=== PATIENT | female | born 1935 | race African-American/Black ===

== ENCOUNTER 2017-02-11 16:55 | Emergency (ER) | payer OTHER ==
[~2017-02-11] VITALS: Ht 162.6 cm; Wt 92.5 kg
[~2017-02-11 16:55] MED LIST: ACET650S19 PO; ASPI-630 PO; ASPI325T11 PO; ATOR40TA59 PO; BISA10SU55 RC; BUDE0.253 NEB; BUDE0.5A NEB; CARV6.252 PO; CEPH-264 PO; CETI10CA PO; CLOP75TA PO; DIAZ5TAB4 PO; DICL100G18 TP; DICY10CA3 PO; FAMO20TA5 PO; FLUT9.9S NS; FURO40TA4 PO; GABA-586 PO; GLIP5TAB10 PO; INSU100I17 SQ; INSU100I27 SQ; INSU100V8 SQ; IPRA3AMP NEB; LIDO700A4 TP; LISI2.5T PO; LOSA25TA4 PO; LOSA50TA2 PO; MAGN400O7 PO; METO25TA4 PO; MONT10TA9 PO; MUPI22OI2 TP; NITR0.4T22 SL; OMEP20CA9 PO; ONETOUCH; PANT40TA5 PO; POLY17PO29 PO; POTA10TA12 PO; PRED-220 PO; TICA90TA PO; TIZA2CAP PO
[2017-02-11 17:38] LABS: BASO % 1 % (0-3); EOS % 6 % (0-3); HEMATOCRIT 33.3 % (36.0-47.0); HEMOGLOBIN 11.1 g/dL (12.0-15.5); LYMPH % 13 % (24-48); MEAN CORPUSCULAR HEMOGLOBIN 31 pg (25-35); MEAN CORPUSCULAR HGB CONC 33 g/dL (31-37); MEAN CORPUSCULAR VOLUME 92 fL (79-100); MONO % 12 % (0-9); NEUT % 69 % (31-73); PLATELET COUNT 215 x10^3/uL (140-400); RED BLOOD COUNT 3.61 x10^6/uL (3.50-5.40); RED CELL DISTRIBUTION WIDTH 13.6 % (11.5-14.5); WHITE BLOOD COUNT 7.7 x10^3/uL (4.0-11.0)
[2017-02-11] MEDS ORDERED: KETOROLAC TROMETHAMINE 30 MG/ML INJ. IV ONE (17:45)
[2017-02-11 17:59] LABS: CALCIUM 9.4 mg/dL (8.5-10.1); CREATININE 1.5 mg/dL (0.6-1.0); GFR 40.2; POTASSIUM 4.2 mmol/L (3.5-5.1)
[2017-02-11 18:26] LABS: C-REACTIVE PROTEIN 10.2 mg/L (0-3.3); URIC ACID 11.5 mg/dL (2.6-6.0)
[2017-02-11] MEDS ORDERED: IV NORMAL SALINE 1000ML BAG 1,000 ML IV ONE (18:30)
[2017-02-11 21:14] VITALS: BP 154/56
[2017-02-11] MEDS ORDERED: COLCHICINE 0.6 MG TABLET PO ONE (22:00)
[2017-02-11] MEDS ORDERED: HYDR-971 PO (22:11)
[2017-02-11] MEDS ORDERED: PRED50TA PO (22:11)
[2017-02-11] MEDS ORDERED: COLC0.6T34 PO (22:11)
--- NOTE | 2017-02-11 22:12 | PHYS DOC ---
Past Medical History Past Medical History: Diabetes-Type II, Hypertension, [place] Past Surgical History: Appendectomy, Cholecystectomy, Hysterectomy, Other Additional Past Surgical Histo: cardiac stents Alcohol Use: None Drug Use: None Adult General Chief Complaint Chief Complaint: HAND PROBLEM HPI HPI 82-year-old female with no prior history of hand pain now complaining of severe pain redness and swelling at the joint proximal to her left thumb. Patient states this was onset over the last day. Extremely painful to light touch. Area of her first metacarpal joint is red and warm. Patient suffered no trauma and had no wound. No Prior history of gout. Review of Systems Review of Systems Constitutional: Denies fever or chills [] Eyes: Denies change in visual acuity, redness, or eye pain [] HENT: Denies nasal congestion or sore throat [] Respiratory: Denies cough or shortness of breath [] Cardiovascular: No additional information not addressed in HPI [] GI: Denies abdominal pain, nausea, vomiting, bloody stools or diarrhea [] : Denies dysuria or hematuria [] Musculoskeletal: Denies back pain or joint pain [] Integument: Denies rash or skin lesions [] Neurologic: Denies headache, focal weakness or sensory changes [] Endocrine: Denies polyuria or polydipsia [] Current Medications Current Medications Current Medications Medications (Trade) Dose Ordered Sig/Leena Start Time Stop Time Status Last Admin Dose Admin Colchicine (Colcrys) 0.6 mg 1X ONCE 02/11/17 22:00 02/11/17 22:01 DC 02/11/17 21:45 0.6 MG Ketorolac Tromethamine (Toradol) 30 mg 1X ONCE 02/11/17 17:45 02/11/17 17:46 DC 02/11/17 17:35 30 MG Prednisone (Prednisone) 10 mg STK-MED ONCE 02/11/17 22:22 02/11/17 22:23 DC Sodium Chloride 1,000 ml @ 1,000 mls/hr 1X ONCE 02/11/17 18:30 02/11/17 19:29 DC Allergies Allergies Allergies Coded Allergies Type Severity Reaction Last Updated Verified metformin Allergy Intermediate 02/11/17 Yes tramadol Allergy Intermediate 06/26/16 Yes Physical Exam Physical Exam Well appearing female no acute distress perfectly dressed and groomed, alert and communicative and appropriate in no acute distress until her first metacarpal joint on left hand is palpated. First metacarpal joint is mildly swollen very tender to light touch and erythematous and warm. No crepitus or fluctuance. No bony tenderness Constitutional: Well developed, well nourished, no acute distress, non-toxic appearance. [] HENT: Normocephalic, atraumatic, bilateral external ears normal, oropharynx moist, no oral exudates, nose normal. [] Eyes: PERRLA, EOMI, conjunctiva normal, no discharge. [] Neck: Normal range of motion, no tenderness, supple, no stridor. [] Cardiovascular:Heart rate regular rhythm, no murmur [] Lungs & Thorax: Bilateral breath sounds clear to auscultation [] Abdomen: Bowel sounds normal, soft, no tenderness, no masses, no pulsatile masses. [] Skin: As above otherwise Warm, dry, no erythema, no rash. [] Back: No tenderness, no CVA tenderness. [] Extremities: No tenderness, no cyanosis, no clubbing, ROM intact, no edema. [] Neurologic: Alert and oriented X 3, normal motor function, normal sensory function, no focal deficits noted. [] Psychologic: Affect normal, judgement normal, mood normal. [] Current Patient Data Vital Signs Vital Signs Date Time Temp Pulse Resp B/P (MAP) Pulse Ox O2 Delivery O2 Flow Rate FiO2 02/11/17 21:14 80 22 154/56 (88) 98 02/11/17 17:00 97.5 Room Air 97.5 Lab Values Laboratory Tests Test 02/11/17 17:30 02/11/17 21:13 White Blood Count 7.7 x10^3/uL (4.0-11.0) Red Blood Count 3.61 x10^6/uL (3.50-5.40) Hemoglobin 11.1 g/dL (12.0-15.5) L Hematocrit 33.3 % (36.0-47.0) L Mean Corpuscular Volume 92 fL (79-100) Mean Corpuscular Hemoglobin 31 pg (25-35) Mean Corpuscular Hemoglobin Concent 33 g/dL (31-37) Red Cell Distribution Width 13.6 % (11.5-14.5) Platelet Count 215 x10^3/uL (140-400) Neutrophils (%) (Auto) 69 % (31-73) Lymphocytes (%) (Auto) 13 % (24-48) L Monocytes (%) (Auto) 12 % (0-9) H Eosinophils (%) (Auto) 6 % (0-3) H Basophils (%) (Auto) 1 % (0-3) Neutrophils # (Auto) 5.3 x10^3uL (1.8-7.7) Lymphocytes # (Auto) 1.0 x10^3/uL (1.0-4.8) Monocytes # (Auto) 0.9 x10^3/uL (0.0-1.1) Eosinophils # (Auto) 0.5 x10^3/uL (0.0-0.7) Basophils # (Auto) 0.0 x10^3/uL (0.0-0.2) Erythrocyte Sedimentation Rate 110 (0-25) H Sodium Level 139 mmol/L (136-145) Potassium Level 4.2 mmol/L (3.5-5.1) Chloride Level 101 mmol/L (98-107) Carbon Dioxide Level 31 mmol/L (21-32) Anion Gap 7 (6-14) Blood Urea Nitrogen 32 mg/dL (7-20) H Creatinine 1.5 mg/dL (0.6-1.0) H Estimated GFR (Cockcroft-Gault) 40.2 Glucose Level 235 mg/dL (70-99) H Uric Acid 11.5 mg/dL (2.6-6.0) H Calcium Level 9.4 mg/dL (8.5-10.1) C-Reactive Protein, Quantitative 10.2 mg/L (0-3.3) H Procalcitonin 0.05 ng/mL (0.00-0.10) Glucose (Fingerstick) 139 mg/dL (70-99) H Laboratory Tests 02/11/17 17:30 Laboratory Tests 02/11/17 17:30 EKG EKG [] Radiology/Procedures Radiology/Procedures X-ray of the left hand with chronic bony deformity at the first MCP joint on the left hand. No fracture. [] Course & Med Decision Making Course & Med Decision Making Pertinent Labs and Imaging studies reviewed. (See chart for details Signs and symptoms consistent with suspected gout and a well-appearing patient with no infectious prodrome is afebrile and feels well other than local pain at the first MCP with exquisite tenderness to light touch. Uric acid elevated. Pro- calcitonin negative. Labs unremarkable otherwise. Patient treated for gout with significant relief comfortable on reevaluation prior to discharge. She is worried follow up with PCP. Prescription for colchicine and prednisone dispensed. Patient will use [facility] as needed and follow up with PCP. She agrees with outpatient follow-up and strict return precautions given [] Baldemar Disclaimer Baldemar Disclaimer This electronic medical record was generated, in whole or in part, using a voice recognition dictation system. Departure Departure Impression: Primary Impression: Gout Additional Impression: Pain of left thumb Disposition: HOME, SELF-CARE Condition: IMPROVED Referrals: UNKNOWN PCP NAME (PCP) Patient Instructions: Gout Additional Instructions: It appears that your left thumb pain as a result of gout today. Take anti- inflammatory medicine as directed, and use [facility] as needed for breakthrough pain as prescribed. Use colchicine as directed for an acute gout attack. One pill every hour until you get relief or limited by irritation of her stomach, or nausea. Follow-up with your doctor tomorrow for reevaluation and to discuss continued management of your condition. Your x-ray shows chronic bony changes in the area of your pain and it is appropriate to discuss this with your doctor as well. Scripts Hydrocodone/Apap 5-325 (NORCO 5-325 TABLET) 1 Each Tablet 1 TAB PO PRN Q6HRS Y for PAIN, #14 TAB 0 Refills Prov: IMAN MARTIN MD 02/11/17 Colchicine (COLCRYS) 0.6 Mg Tablet 0.6 MG PO every hour Y for gout, #20 TAB Take 1 pill every hour by mouth as needed for an acute gout attack up to 5 doses. Stop if you have nausea or stomach irritation. Prov: IMAN MARTIN MD 02/11/17 Prednisone (PREDNISONE) 50 Mg Tablet 1 TAB PO DAILY, #5 TAB Prov: IMAN MARTIN MD 02/11/17 Problem Qualifiers IMAN MARTIN MD Feb 11, 2017 22:12
[2017-02-11] MEDS ORDERED: predniSONE 20 MG TABLET ONE (22:21)
[2017-02-11] MEDS ORDERED: predniSONE 10 MG TABLET ONE (22:22)
[2017-02-11] MEDS ORDERED: predniSONE 20 MG TABLET PO ONE (23:00)
--- NOTE | 2017-02-12 08:58 | RAD ---
Examination: 3 views of the left hand History: History of pain in the left first and metacarpophalangeal joint. Comparison: None available Findings: There is moderate degenerative changes identified in the metacarpophalangeal joints with mildly degenerative changes identified in the interphalangeal joints. There is no acute fracture identified. Impression 1. No acute osseous findings. 2. Degenerative changes metacarpophalangeal joints and interphalangeal joints.
== END 2017-02-11 22:36 | disposition home or self-care (01) ==
LOC: ER 16:55
DX: M10.9 Gout, unspecified (principal); E11.9 Type 2 diabetes mellitus without complications; I10 Essential (primary) hypertension; I25.2 Old myocardial infarction; Z95.5 Presence of coronary angioplasty implant and graft; Z90.49 Acquired absence of other specified parts of digestive tract; Z90.710 Acquired absence of both cervix and uterus; Z88.5 Allergy status to narcotic agent; Z88.8 Allergy status to other drugs, medicaments and biological substances
CPT/HCPCS: 36415; 73130; 80048; 82962; 84145; 84550; 85027; 85651; 86140; 87040; 96374; 99285; J1885; J7512

== ENCOUNTER 2017-05-10 16:46 | Inpatient (IN) | payer OTHER ==
[~2017-05-10] VITALS: Ht 162.6 cm; Wt 96.6 kg
[~2017-05-10 16:46] MED LIST changes: +COLC0.6T34 PO; +HYDR-971 PO; +PRED50TA PO
[2017-05-10] MEDS: NITROGLYCERIN SUBLINGUAL 0.4 MG BOTTLE OF 25. SL PRN ×2 (17:21→22:39)
[2017-05-10] MEDS ORDERED: LIDO:MAALOX:DONNATAL 1:1:1 15 ML SINGLE DOSE SWSW ONE (17:30)
[2017-05-10 17:33] LABS: BASO % 0 % (0-3); EOS % 6 % (0-3); HEMATOCRIT 33.4 % (36.0-47.0); HEMOGLOBIN 11.1 g/dL (12.0-15.5); LYMPH # 1.5 x10^3/uL (1.0-4.8); LYMPH % 25 % (24-48); MEAN CORPUSCULAR HEMOGLOBIN 31 pg (25-35); MEAN CORPUSCULAR HGB CONC 33 g/dL (31-37); MEAN CORPUSCULAR VOLUME 93 fL (79-100); MONO % 13 % (0-9); NEUT % 56 % (31-73); PLATELET COUNT 173 x10^3/uL (140-400); RED CELL DISTRIBUTION WIDTH 13.4 % (11.5-14.5); WHITE BLOOD COUNT 6.1 x10^3/uL (4.0-11.0)
--- NOTE | 2017-05-10 17:36 | PHYS DOC ---
Past Medical History Past Medical History: Diabetes-Type II, Heart Disease, Hypertension, [place] Past Surgical History: Appendectomy, Cholecystectomy, Hysterectomy, Other Additional Past Surgical Histo: cardiac stents, cardiac catheterization x4 Alcohol Use: None Drug Use: None Adult General Chief Complaint Chief Complaint: CHEST PAIN [facility] HPI Patient is a 82 year old female who presents with 2 days of intermittent R side pressure-like chest pain that radiates to her shoulder. It became more constant today, she didn't have any nitro left so she didn't take anything for the pain. Pt states this feels similar to when she had her last MO. She already took a full-dose aspirin today. Reports associated SOB with mild cough , denies fevers. No diaphoresis reported. Denies h/o PE or DVT. civil attorney: Dr. Boyd, PCP at . Review of Systems Review of Systems Constitutional: Denies fever or chills [] Eyes: Denies change in visual acuity, redness, or eye pain [] HENT: Denies nasal congestion or sore throat [] Respiratory: per hpi Cardiovascular: No additional information not addressed in HPI [] GI: Denies abdominal pain, nausea, vomiting, bloody stools or diarrhea [] : Denies dysuria or hematuria [] Musculoskeletal: Denies back pain or joint pain [] Integument: Denies rash or skin lesions [] Neurologic: Denies headache, focal weakness or sensory changes [] Current Medications Current Medications Current Medications Medications (Trade) Dose Ordered Sig/Leena Start Time Stop Time Status Last Admin Dose Admin Multi-Ingredient Mouthwash/Gargle (Gi Cocktail Single Dose) 15 ml 1X ONCE 05/10/17 17:30 05/10/17 17:31 DC 05/10/17 17:20 15 ML Nitroglycerin (Nitrostat) 0.4 mg PRN Q5MIN PRN 05/10/17 17:15 05/10/17 22:39 0.4 MG Allergies Allergies Allergies Coded Allergies Type Severity Reaction Last Updated Verified metformin Allergy Intermediate 02/11/17 Yes tramadol Allergy Intermediate 06/26/16 Yes Physical Exam Physical Exam Constitutional: Well developed, well nourished, no acute distress, non-toxic appearance. [] HENT: Normocephalic, atraumatic, bilateral external ears normal, oropharynx moist, no oral exudates, nose normal. [] Eyes: PERRLA, EOMI, conjunctiva normal, no discharge. [] Neck: Normal range of motion, no tenderness, supple, no stridor. [] Cardiovascular:Heart rate regular with regular rhythm Lungs & Thorax: Bilateral breath sounds , bibasilar crackles Abdomen: Bowel sounds normal, soft, no tenderness, no masses, no pulsatile masses. [] Skin: Warm, dry, no erythema, no rash. [] Back: No tenderness, no CVA tenderness. [] Extremities: No tenderness, no cyanosis, no clubbing, ROM intact, no edema.neg homen's bilaterally Neurologic: Alert and oriented X 3, normal motor function, normal sensory function, no focal deficits noted. [] Psychologic: Affect normal, judgement normal, mood normal. [] Current Patient Data Vital Signs Vital Signs Date Time Temp Pulse Resp B/P (MAP) Pulse Ox O2 Delivery O2 Flow Rate FiO2 05/10/17 17:52 68 18 125/58 (80) 98 Room Air 05/10/17 16:57 98.1 98.1 Lab Values Laboratory Tests Test 05/10/17 17:00 05/10/17 17:17 Urine Collection Type Unknown Urine Color Yellow Urine Clarity Clear Urine pH 5.5 Urine Specific [place] >=1.030 Urine Protein Negative mg/dL (NEG-TRACE) Urine Glucose (UA) Negative mg/dL (NEG) Urine Ketones (Stick) Negative mg/dL (NEG) Urine Blood Negative (NEG) Urine Nitrite Negative (NEG) Urine Bilirubin Negative (NEG) Urine Urobilinogen Dipstick 0.2 mg/dL (0.2 mg/dL) Urine Leukocyte Esterase Negative (NEG) Urine RBC Occ /HPF (0-2) Urine WBC Occ /HPF (0-4) Urine Squamous Epithelial Cells Mod /LPF Urine Bacteria Few /HPF (0-FEW) Urine Hyaline Casts Many /HPF Urine Mucus Slight /LPF White Blood Count 6.1 x10^3/uL (4.0-11.0) Red Blood Count 3.60 x10^6/uL (3.50-5.40) Hemoglobin 11.1 g/dL (12.0-15.5) L Hematocrit 33.4 % (36.0-47.0) L Mean Corpuscular Volume 93 fL (79-100) Mean Corpuscular Hemoglobin 31 pg (25-35) Mean Corpuscular Hemoglobin Concent 33 g/dL (31-37) Red Cell Distribution Width 13.4 % (11.5-14.5) Platelet Count 173 x10^3/uL (140-400) Neutrophils (%) (Auto) 56 % (31-73) Lymphocytes (%) (Auto) 25 % (24-48) Monocytes (%) (Auto) 13 % (0-9) H Eosinophils (%) (Auto) 6 % (0-3) H Basophils (%) (Auto) 0 % (0-3) Neutrophils # (Auto) 3.4 x10^3uL (1.8-7.7) Lymphocytes # (Auto) 1.5 x10^3/uL (1.0-4.8) Monocytes # (Auto) 0.8 x10^3/uL (0.0-1.1) Eosinophils # (Auto) 0.3 x10^3/uL (0.0-0.7) Basophils # (Auto) 0.0 x10^3/uL (0.0-0.2) Prothrombin Time 13.0 SEC (11.7-14.0) Prothrombin Time INR 1.0 (0.8-1.1) Sodium Level 141 mmol/L (136-145) Potassium Level 4.0 mmol/L (3.5-5.1) Chloride Level 106 mmol/L (98-107) Carbon Dioxide Level 28 mmol/L (21-32) Anion Gap 7 (6-14) Blood Urea Nitrogen 23 mg/dL (7-20) H Creatinine 1.4 mg/dL (0.6-1.0) H Estimated GFR (Cockcroft-Gault) 43.6 BUN/Creatinine Ratio 16 (6-20) Glucose Level 171 mg/dL (70-99) H Calcium Level 8.8 mg/dL (8.5-10.1) Magnesium Level 2.1 mg/dL (1.8-2.4) Total Bilirubin 0.3 mg/dL (0.2-1.0) Aspartate Amino Transferase (AST) 25 U/L (15-37) Alanine Aminotransferase (ALT) 25 U/L (14-59) Alkaline Phosphatase 125 U/L (46-116) H Troponin I Quantitative < 0.017 ng/mL (0.000-0.055) UY-Gqm-A-Type Natriuretic Peptide 2033 pg/mL (0-449) H Total Protein 7.6 g/dL (6.4-8.2) Albumin 3.3 g/dL (3.4-5.0) L Albumin/Globulin Ratio 0.8 (1.0-1.7) L Laboratory Tests 05/10/17 17:17 Laboratory Tests 05/10/17 17:17 EKG EKG 75 bpm, sinus, normal axis, normal intervals, T-wave biphasic in aVL, V6, no ST elevation or depression, compared with previous EKGs and no acute change appreciated, interpreted by me[] Radiology/Procedures Radiology/Procedures CXR: 1 view, interpreted by me, ongoing cardiomegaly with mild bilateral lower lobe pulm edema, ICD noted.[] Course & Med Decision Making Course & Med Decision Making Pertinent Labs and Imaging studies reviewed. (See chart for details) Pt given SL nitro and gi cocktail Symptoms improved, no acute findings on ED other than mild pulm edema. 20 mg IV lasix IV given, pt admitted to tele under Dr. Pineda. Kleberon Disclaimer Baldemar Disclaimer This electronic medical record was generated, in whole or in part, using a voice recognition dictation system. Departure Departure Impression: Primary Impression: Unstable angina Disposition: 09 ADMITTED INPATIENT Admitting Physician: Jenni Cha Condition: IMPROVED Referrals: UNKNOWN PCP NAME (PCP) BARTOLO MONTERROSO MD May 10, 2017 17:36
[2017-05-10 17:44] LABS: CALCIUM 8.8 mg/dL (8.5-10.1); CREATININE 1.4 mg/dL (0.6-1.0); GFR 43.6
[2017-05-10 17:50] LABS: ALBUMIN 3.3 g/dL (3.4-5.0); ALBUMIN/GLOBULIN RATIO 0.8 (1.0-1.7); MAGNESIUM 2.1 mg/dL (1.8-2.4); TOTAL BILIRUBIN 0.3 mg/dL (0.2-1.0); TOTAL PROTEIN 7.6 g/dL (6.4-8.2)
[2017-05-10] MEDS ORDERED: ACETAMINOPHEN 325 MG TABLET. PO PRN (18:15)
[2017-05-10] MEDS ORDERED: MORPHINE SULFATE 4 MG/ML DISP.SYRIN. IV PRN (18:15)
[2017-05-10] MEDS ORDERED: NITROGLYCERIN SUBLINGUAL 0.4 MG BOTTLE OF 25. SL PRN ×2 (18:15→19:00)
[2017-05-10] MEDS ORDERED: FUROSEMIDE 20 MG/2 ML VIAL. IVP ONE (18:30)
--- NOTE | 2017-05-10 18:57 | PDOC1 ---
History and Physical Date of Admission Date of Admission DATE: 05/10/17 TIME: 18:50 Identification/Chief Complaint Chief Complaint Right sided CP Problems: Source Source: Caregiver, Chart review, Patient History of Present Illness History of Present Illness 82 y.o obese AA fmealchelo who follows Mario Alberto Gupta and also mentions Dr Boyd, hx of 4 cardiac stents, last one placed Jun 2016 when she was admitted here, Claims compliance to meds including to Brilinta etc, comes in bec of CP Right sided associated with diaphoresis she claims and SOA, SHe does have hx CHF, on lasix at home, claims watches her salt intake CXR shows midl congestion, mild BNP 2K, will get lasix at ER, trops and ekg ok,admitted given cardiac hx to r.o ongoing ACS, SHe wants to go home soon,. DOes not see Dr. Azul Oliver or Dr. Teran anymore, She describes the CP as similar when she had her heart attach in Jun, 2016. CReat 1.9, she mentions a number 1.7 before, Was told to have some CKD, She was agreeable to see nephro while here for that CKD on lasix, . alb 3.3 NO JVD, no marked leg edema Past Medical History Cardiovascular: CAD, CHF, HTN, [place], Hyperlipidemia Pulmonary: Asthma, Other CENTRAL NERVOUS SYSTEM: Other GI: Constipation, GERD Heme/Onc: Anemia NOS Psych: Anxiety Musculoskeletal: Osteoarthritis, Other Renal/: Chronic renal insuff Endocrine: Diabetes Past Surgical History Past Surgical History: Appendectomy, Cholecystectomy, Cataract Removal, Other Family History Family History: No Significant Social History Smoke: No ALCOHOL: none Drugs: None Current Medications Current Medications Current Medications Nitroglycerin (Nitrostat) 0.4 mg PRN Q5MIN PRN SL CHEST PAIN Last administered on 05/10/17 17:21; Start 05/10/17 at 17:15 Multi-Ingredient Mouthwash/Gargle (Gi Cocktail Single Dose) 15 ml 1X ONCE SWSW Last administered on 05/10/17 17:20; Start 05/10/17 at 17:30; Stop 05/10/17 at 17:31; Status DC Furosemide (Lasix) 20 mg 1X ONCE IVP Last administered on 05/10/17 18:21; Start 05/10/17 at 18:30; Stop 05/10/17 at 18:31; Status DC Morphine Sulfate 2 mg PRN Q2HR PRN IV PAIN; Start 05/10/17 at 18:15; Stop 05/11 at 18:14 Acetaminophen (Tylenol) 650 mg PRN Q4HRS PRN PO FEVER; Start 05/10/17 at 18:15 ; Stop 05/11/17 at 18:14 Nitroglycerin (Nitrostat) 0.4 mg PRN Q5MIN PRN SL CHEST PAIN; Start 05/10/17 at 18:15; Stop 05/10/17 at 18:16; Status DC Active Scripts Active [place] 5-325 Tablet (Acetaminophen/Hydrocodone Bitart) 1 Each Tablet 1 Tab PO PRN Q6HRS PRN Colcrys (Colchicine) 0.6 Mg Tablet 0.6 Mg PO EVERY HOUR PRN Take 1 pill every hour by mouth as needed for an acute gout attack up to 5 doses. Stop if you have nausea or stomach irritation. Prednisone 50 Mg Tablet 1 Tab PO DAILY Novolog Flexpen (Insulin Aspart) 100 Unit/1 Ml Insuln.pen 1 Unit SQ DIRECTED Brilinta (Ticagrelor) 90 Mg Tablet 90 Mg PO BID Duoneb 0.5-3(2.5) Mg/3 Ml (Albuterol/Ipratropium) 3 Ml Ampul.neb 3 Ml NEB BID Famotidine 20 Mg Tablet 20 Mg PO DAILY Budesonide 0.5 Mg/2 Ml Ampul.neb 0.5 Mg NEB RTBID Furosemide 40 Mg Tablet 40 Mg PO DAILY Atorvastatin Calcium 40 Mg Tablet 40 Mg PO QHS Reported Dulcolax (Bisacodyl) 10 Mg Supp.rect 10 Mg RC PRN DAILY PRN Milk Of Magnesia (Magnesium Hydroxide) 400 Mg/5 Ml Oral.susp 400 Mg PO Tizanidine Hcl 2 Mg Capsule 2 Mg PO QID PRN NITROGLYCERIN SubLingual (Nitroglycerin) 0.4 Mg Tab.subl 0.4 Mg SL PRN Q5MIN PRN Carvedilol 6.25 Mg Tablet 1 Tab PO BID Voltaren (Diclofenac Sodium) 100 Gm Gel..gram. 2 Gm TP BID Keflex (Cephalexin) 500 Mg Capsule 500 Mg PO QID Lantus (Insulin Glargine,Hum.rec.anlog) 100 Unit/1 Ml Vial 30 Unit SQ Mupirocin Ointment (Mupirocin) 22 Gm Oint...g. 1 Amy TP TID Lidoderm (Lidocaine) 700 Mg Adh..patch 1 Patch TP DAILY Aspirin 81 Mg Tab.chew 1 Tab PO DAILY Dicyclomine Hcl 10 Mg Capsule 1 Cap PO TID Miralax (Polyethylene Glycol 3350) 17 Gm Powd.pack 1 Packet PO DAILY Allergies Allergies: Coded Allergies: metformin (Verified Allergy, Intermediate, 02/11/17) tramadol (Verified Allergy, Intermediate, 06/26/16) ROS Review of System per HPI, all else is neg Physical Exam General: Alert, Oriented X3, Cooperative, No acute distress HEENT: Atraumatic, PERRLA, EOMI Lungs: Clear to auscultation, Normal air movement Heart: S1S2, RRR, no thrills, no rubs, no gallops, no murmurs Cardiovascular: S1, S2 Breasts: Normal, Rt breast nml w/o mass, Lt breast nml w/o mass, Nipples normal Abdomen: Normal bowel sounds, Soft, No tenderness, No hepatosplenomegaly, No masses Rectal Exam: not examined PELVIC: Nml ext genitalia Extremities: No clubbing, No cyanosis, No edema, Normal pulses, No tenderness/ swelling Skin: No rashes, No breakdown, No significant lesion Neuro: Normal gait, Normal speech, Strength at 5/5 X4 ext, Normal tone, Sensation intact, Cranial nerves 3-12 NL, Reflexes 2+ Psych/Mental Status: Mental status NL, Mood NL Vitals Vitals Vital Signs Date Time Temp Pulse Resp B/P (MAP) Pulse Ox O2 Delivery O2 Flow Rate FiO2 05/10/17 18:24 68 16 137/81 (99) 98 Room Air 05/10/17 16:57 98.1 98.1 Labs Labs Laboratory Tests Test 05/10/17 17:17 White Blood Count 6.1 x10^3/uL (4.0-11.0) Red Blood Count 3.60 x10^6/uL (3.50-5.40) Hemoglobin 11.1 g/dL (12.0-15.5) Hematocrit 33.4 % (36.0-47.0) Mean Corpuscular Volume 93 fL (79-100) Mean Corpuscular Hemoglobin 31 pg (25-35) Mean Corpuscular Hemoglobin Concent 33 g/dL (31-37) Red Cell Distribution Width 13.4 % (11.5-14.5) Platelet Count 173 x10^3/uL (140-400) Neutrophils (%) (Auto) 56 % (31-73) Lymphocytes (%) (Auto) 25 % (24-48) Monocytes (%) (Auto) 13 % (0-9) Eosinophils (%) (Auto) 6 % (0-3) Basophils (%) (Auto) 0 % (0-3) Neutrophils # (Auto) 3.4 x10^3uL (1.8-7.7) Lymphocytes # (Auto) 1.5 x10^3/uL (1.0-4.8) Monocytes # (Auto) 0.8 x10^3/uL (0.0-1.1) Eosinophils # (Auto) 0.3 x10^3/uL (0.0-0.7) Basophils # (Auto) 0.0 x10^3/uL (0.0-0.2) Prothrombin Time 13.0 SEC (11.7-14.0) Prothromb Time International Ratio 1.0 (0.8-1.1) Sodium Level 141 mmol/L (136-145) Potassium Level 4.0 mmol/L (3.5-5.1) Chloride Level 106 mmol/L (98-107) Carbon Dioxide Level 28 mmol/L (21-32) Anion Gap 7 (6-14) Blood Urea Nitrogen 23 mg/dL (7-20) Creatinine 1.4 mg/dL (0.6-1.0) Estimated GFR (Cockcroft-Gault) 43.6 BUN/Creatinine Ratio 16 (6-20) Glucose Level 171 mg/dL (70-99) Calcium Level 8.8 mg/dL (8.5-10.1) Magnesium Level 2.1 mg/dL (1.8-2.4) Total Bilirubin 0.3 mg/dL (0.2-1.0) Aspartate Amino Transf (AST/SGOT) 25 U/L (15-37) Alanine Aminotransferase (ALT/SGPT) 25 U/L (14-59) Alkaline Phosphatase 125 U/L (46-116) Troponin I Quantitative < 0.017 ng/mL (0.000-0.055) SM-Xcy-C-Type Natriuretic Peptide 2033 pg/mL (0-449) Total Protein 7.6 g/dL (6.4-8.2) Albumin 3.3 g/dL (3.4-5.0) Albumin/Globulin Ratio 0.8 (1.0-1.7) Laboratory Tests Test 05/10/17 17:17 White Blood Count 6.1 x10^3/uL (4.0-11.0) Red Blood Count 3.60 x10^6/uL (3.50-5.40) Hemoglobin 11.1 g/dL (12.0-15.5) Hematocrit 33.4 % (36.0-47.0) Mean Corpuscular Volume 93 fL (79-100) Mean Corpuscular Hemoglobin 31 pg (25-35) Mean Corpuscular Hemoglobin Concent 33 g/dL (31-37) Red Cell Distribution Width 13.4 % (11.5-14.5) Platelet Count 173 x10^3/uL (140-400) Neutrophils (%) (Auto) 56 % (31-73) Lymphocytes (%) (Auto) 25 % (24-48) Monocytes (%) (Auto) 13 % (0-9) Eosinophils (%) (Auto) 6 % (0-3) Basophils (%) (Auto) 0 % (0-3) Neutrophils # (Auto) 3.4 x10^3uL (1.8-7.7) Lymphocytes # (Auto) 1.5 x10^3/uL (1.0-4.8) Monocytes # (Auto) 0.8 x10^3/uL (0.0-1.1) Eosinophils # (Auto) 0.3 x10^3/uL (0.0-0.7) Basophils # (Auto) 0.0 x10^3/uL (0.0-0.2) Prothrombin Time 13.0 SEC (11.7-14.0) Prothromb Time International Ratio 1.0 (0.8-1.1) Sodium Level 141 mmol/L (136-145) Potassium Level 4.0 mmol/L (3.5-5.1) Chloride Level 106 mmol/L (98-107) Carbon Dioxide Level 28 mmol/L (21-32) Anion Gap 7 (6-14) Blood Urea Nitrogen 23 mg/dL (7-20) Creatinine 1.4 mg/dL (0.6-1.0) Estimated GFR (Cockcroft-Gault) 43.6 BUN/Creatinine Ratio 16 (6-20) Glucose Level 171 mg/dL (70-99) Calcium Level 8.8 mg/dL (8.5-10.1) Magnesium Level 2.1 mg/dL (1.8-2.4) Total Bilirubin 0.3 mg/dL (0.2-1.0) Aspartate Amino Transf (AST/SGOT) 25 U/L (15-37) Alanine Aminotransferase (ALT/SGPT) 25 U/L (14-59) Alkaline Phosphatase 125 U/L (46-116) Troponin I Quantitative < 0.017 ng/mL (0.000-0.055) OD-Tjc-F-Type Natriuretic Peptide 2033 pg/mL (0-449) Total Protein 7.6 g/dL (6.4-8.2) Albumin 3.3 g/dL (3.4-5.0) Albumin/Globulin Ratio 0.8 (1.0-1.7) VTE Prophylaxis Ordered VTE Prophylaxis Devices: Yes VTE Pharmacological Prophylaxi: Yes Assessment/Plan Assessment/Plan 1. CP r.o ACS, atypical right sided 2. CHF hx, mild CHF leanna dmit, unknown type - get records from Dr Sloan's office 3. Obesity BMI 35.5 4. HTN, DM, dyslipidemia - chronci stable 5,. Hx CAD with 4 indwelling stents - resume home meds including Brilinta 6. CKD, creat 1.9 PLan: Admit Cycle CE Consult cards Get records from [facility] protocol Resume home meds SSi high dose achs BS 140s only - might need to dec 30 levemir dose if BS not too high s/p lasix at ER - see her UO and herlinda lisa Consult renal re the CKD 0- get UA - she is on lasix at home Dw her, seen on ER IDALIA ABERNATHY MD May 10, 2017 18:57
[2017-05-10] MEDS ORDERED: HYDROcodone/APAP 5/325MG 1 TAB TABLET PO PRN (19:00)
[2017-05-10] MEDS ORDERED: BISACODYL 10 MG SUPP.RECT. RC PRN (19:00)
[2017-05-10] MEDS ORDERED: COLCHICINE 0.6 MG TABLET PO PRN (19:00)
[2017-05-10] MEDS ORDERED: ONDANSETRON PF 4 MG/2 ML VIAL. IV PRN (19:00)
[2017-05-10] MEDS ORDERED: ONDANSETRON ODT 4 MG TAB.RAPDIS. PO PRN (19:00)
[2017-05-10] MEDS ORDERED: DEXTROSE 50% 25 GM / 50ML DISP.SYRIN. IV PRN (19:00)
[2017-05-10 19:19] LABS: BILIRUBIN,URINE NEGATIVE (NEG); GLUCOSE,URINE NEGATIVE (NEG); NITRITE,URINE NEGATIVE (NEG); PH,URINE 5.5; PROTEIN,URINE NEGATIVE (NEG-TRACE); UROBILINOGEN,URINE 0.2 mg/dL (0.2 mg/dL)
[2017-05-10 19:30] VITALS: BP 127/62
[2017-05-10] MEDS ORDERED: tiZANidine 4 MG TABLET. PO PRN (19:30)
[2017-05-10 19:46] LABS: BACTERIA,URINE FEW /HPF (0-FEW); RBC,URINE OCC /HPF (0-2); SQUAMOUS EPITHELIAL CELL,UR MOD /LPF; WBC,URINE OCC /HPF (0-4)
[2017-05-10] MEDS: BUDESONIDE 0.5 MG/2 ML NEBU. NEB SCH (19:49)
[2017-05-10] MEDS ORDERED: IPRATRPIUM/ALBUTEROL 0.5/2.5MG 3 ML NEBU. NEB SCH (21:00)
[2017-05-10] MEDS: TICAGRELOR 90 MG TABLET. PO SCH (21:00)
[2017-05-10] MEDS ORDERED: MUPIROCIN 2 % NASAL OINTMENT 22GM TUBE. NS SCH (21:00)
[2017-05-10] MEDS ORDERED: MUPIROCIN 2 % TOPICAL CREAM 15GM TUBE. TP SCH (21:00)
[2017-05-10] MEDS ORDERED: INSULIN DETEMIR 300 UNITS/3 ML INSULN.PEN. SQ SCH (21:00)
[2017-05-10] MEDS: DICLOFENAC SODIUM 1% TOPICAL GEL 100GM TUBE. TP SCH (21:00)
[2017-05-10] MEDS ORDERED: GABA300C8 PO (21:09)
[2017-05-10] MEDS ORDERED: BENZ-8 PO (21:09)
[2017-05-10] MEDS: DICYCLOMINE HCL 10 MG CAPSULE PO SCH (22:07)
[2017-05-10] MEDS: ATORVASTATIN CALCIUM 40 MG TABLET. PO SCH (22:11)
[2017-05-10] MEDS: CARVEDILOL 6.25 MG TABLET. PO SCH (22:12)
[2017-05-10 22:39] VITALS: BP 124/82
[2017-05-11] VITALS (7 sets, daily range): BP systolic 100–119; BP diastolic 28–89
[2017-05-11] MEDS ORDERED: MAG HYDROX/ALUMINUM HYD/SIMETH 30 ML ORAL.SUSP PO PRN (04:30)
[2017-05-11] MEDS ORDERED: LIDO:MAALOX:DONNATAL 1:1:1 15 ML SINGLE DOSE SWSW ONE (05:00)
--- NOTE | 2017-05-11 06:26 | EKG ---
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
[2017-05-11] MEDS: BUDESONIDE 0.5 MG/2 ML NEBU. NEB SCH ×2 (07:48→19:54)
[2017-05-11] MEDS: IPRATRPIUM/ALBUTEROL 0.5/2.5MG 3 ML NEBU. NEB SCH ×2 (07:48→19:54)
--- NOTE | 2017-05-11 07:57 | RAD ---
PORTABLE CHEST 1V Clinical Indication: chest pain Comparison: Chest radiograph dated 06/27/2016 Findings: New left pacemaker with leads in the right atrium and right ventricle. Low lung volume. Left basilar heterogenous air space opacities. Stable pulmonary vasculature. Possible small left pleural effusion. No pneumothorax. Stable cardiomegaly. Stable atherosclerotic and tortuous thoracic aorta. No acute osseous abnormality. IMPRESSION: 1. Left basilar heterogenous air space opacities may relate to atelectasis, although an underlying infectious process is difficult to exclude. 2. Possible small left pleural effusion. 3. Stable cardiomegaly. 4. New left pacemaker as above.
[2017-05-11] MEDS: INSULIN ASPART 300 UNITS/3 ML INSULN.PEN SQ SCH ×3 (08:00→18:00)
[2017-05-11] MEDS: LIDOCAINE (700MG/PATCH) PATCH. TP SCH (09:00)
[2017-05-11] MEDS: MAGNESIUM HYDROXIDE 2,400 MG/30 ML ORAL.SUSP. PO SCH (09:00)
[2017-05-11] MEDS ORDERED: FUROSEMIDE 40 MG TABLET. PO SCH (09:00)
[2017-05-11] MEDS: DICLOFENAC SODIUM 1% TOPICAL GEL 100GM TUBE. TP SCH ×3 (09:00→21:00)
[2017-05-11] MEDS: POLYETHYLENE GLYCOL 3350 17 GM PACKET. PO SCH (09:00)
[2017-05-11] MEDS ORDERED: NON FORMULARY ITEM (Prednisone 1 TAB) PO SCH (09:00)
[2017-05-11] MEDS ORDERED: OMEP40CA5 PO (10:54)
[2017-05-11] MEDS ORDERED: GLIP10TA13 PO (10:54)
[2017-05-11] MEDS ORDERED: FURO80TA3 PO (10:54)
--- NOTE | 2017-05-11 10:59 | PDOC2 ---
CARDIAC CONSULT DATE OF CONSULT Date of Consult DATE: 05/11/17 TIME: 10:57 REASON FOR CONSULT Reason for Consult: Chest pain CHF REFERRING PHYSICIAN Referring Physician: Dr. Platt SOURCE Source: Chart review, Patient HISTORY OF PRESENT ILLNESS HISTORY OF PRESENT ILLNESS This is an 82 yo female with a history of CAD s/p stent placement with subsequent in-stent thrombosis the following month (was unclear if patient was this was Plavix failure or or patient was not taking DAPT). Patient present yesterday with complaints of chest pain. Reports she has had intermittent, mild left chest pain/pressure since original DC in May. No associated or precipitations factors. Last night pain was much more severe. Located in the left chest. No associated dizziness, diaphoresis, palpitations, SOA, or nausea/ vomiting. No recent illness/fevers, CRUZ, or LE edema. Has had cough productive of white sputum. Reports compliance with medications. [place] [facility] [place] stress test earlier this summer. PAST MEDICAL HISTORY Past Medical History Cardiovascular: CAD (NSTEMI 05/2016 with PCI/TRINITY to LAD and RCA; STEMI treated at [facility] - 06/2016 with total occlusion of both existing stents; aspiration thrombectomy - TRINITY to existing LAD and POBA to RCA; discharged on ASA and Brilinta), CHF, HTN, Hyperlipidemia Pulmonary: Asthma, Other (pulmonary embolus after abdominal surgery - 1973) CENTRAL NERVOUS SYSTEM: Other (none) GI: GERD Heme/Onc: Anemia NOS Hepatobiliary: No pertinent hx Psych: No pertinent hx Musculoskeletal: Osteoarthritis Rheumatologic: No pertinent hx Infectious disease: No pertinent hx ENT: No pertinent hx Renal/: No pertinent hx Endocrine: Diabetes, Hypothyroidism Dermatology: No pertinent hx PAST SURGICAL HISTORY Past Surgical History Appendectomy, Cholecystectomy, Cataract Removal, Other (exp lap due to ectopic pregnancies) CURRENT MEDICATIONS CURRENT MEDICATIONS Current Medications Medications (Trade) Dose Ordered Sig/Leena Route PRN Reason Start Time Stop Time Status Last Admin Dose Admin Nitroglycerin (Nitrostat) 0.4 mg PRN Q5MIN PRN SL CHEST PAIN 05/10/17 17:15 05/10/17 22:39 Multi-Ingredient Mouthwash/Gargle (Gi Cocktail Single Dose) 15 ml 1X ONCE SWSW 05/10/17 17:30 05/10/17 17:31 DC 05/10/17 17:20 Furosemide (Lasix) 20 mg 1X ONCE IVP 05/10/17 18:30 05/10/17 18:31 DC 05/10/17 18:21 Morphine Sulfate 2 mg PRN Q2HR PRN IV PAIN 05/10/17 18:15 05/11/17 18:14 05/11/17 03:04 Ondansetron HCl (Zofran) 4 mg PRN Q6HRS PRN IV NAUSEA/VOMITING 05/10/17 19:00 05/11/17 03:03 Atorvastatin Calcium (Lipitor) 40 mg QHS PO 05/10/17 21:00 05/10/17 22:11 Budesonide (Pulmicort) 0.5 mg RTBID NEB 05/10/17 20:00 05/11/17 07:48 Carvedilol (Coreg) 6.25 mg BIDWMEALS PO 05/10/17 21:00 05/10/17 22:12 Dicyclomine HCl (Bentyl) 10 mg TID PO 05/10/17 21:00 05/10/17 22:07 Insulin Detemir (Levemir) 30 units QHS SQ 05/10/17 21:00 05/10/17 22:28 Multi-Ingredient Mouthwash/Gargle (Gi Cocktail Single Dose) 15 ml 1X ONCE SWSW 05/11/17 05:00 05/11/17 05:01 DC 05/11/17 04:36 Albuterol/ Ipratropium (Duoneb) 3 ml RTBID NEB 05/11/17 08:00 05/11/17 07:48 ALLERGIES ALLERGIES: Coded Allergies: metformin (Verified Allergy, Intermediate, 02/11/17) tramadol (Verified Allergy, Intermediate, 06/26/16) PHYSICAL EXAM General: Alert, Oriented X3, Cooperative, No acute distress HEENT: Atraumatic, Mucous membr. moist/pink Lungs: Clear to auscultation, Normal air movement Heart: Regular rate, Normal S1, Normal S2 Abdomen: Soft, No tenderness Extremities: No edema, Normal pulses Skin: No breakdown, No significant lesion Neuro: Normal speech, Sensation intact Psych/Mental Status: Mental status NL, Mood NL MUSCULOSKELETAL: Osteoarthritic changes both hands VITALS VITALS Vital Signs Date Time Temp Pulse Resp B/P (MAP) Pulse Ox O2 Delivery O2 Flow Rate FiO2 05/11/17 07:48 95 Room Air 05/11/17 07:00 97.6 69 18 119/62 (81) 97.6 LABS Lab: Laboratory Tests Test 05/10/17 17:00 05/10/17 17:17 05/10/17 20:15 05/11/17 00:20 Urine Collection Type Unknown Urine Color Yellow Urine Clarity Clear Urine pH 5.5 Urine Specific [place] >=1.030 Urine Protein Negative mg/dL (NEG-TRACE) Urine Glucose (UA) Negative mg/dL (NEG) Urine Ketones (Stick) Negative mg/dL (NEG) Urine Blood Negative (NEG) Urine Nitrite Negative (NEG) Urine Bilirubin Negative (NEG) Urine Urobilinogen Dipstick 0.2 mg/dL (0.2 mg/dL) Urine Leukocyte Esterase Negative (NEG) Urine RBC Occ /HPF (0-2) Urine WBC Occ /HPF (0-4) Urine Squamous Epithelial Cells Mod /LPF Urine Bacteria Few /HPF (0-FEW) Urine Hyaline Casts Many /HPF Urine Mucus Slight /LPF White Blood Count 6.1 x10^3/uL (4.0-11.0) Red Blood Count 3.60 x10^6/uL (3.50-5.40) Hemoglobin 11.1 g/dL (12.0-15.5) Hematocrit 33.4 % (36.0-47.0) Mean Corpuscular Volume 93 fL (79-100) Mean Corpuscular Hemoglobin 31 pg (25-35) Mean Corpuscular Hemoglobin Concent 33 g/dL (31-37) Red Cell Distribution Width 13.4 % (11.5-14.5) Platelet Count 173 x10^3/uL (140-400) Neutrophils (%) (Auto) 56 % (31-73) Lymphocytes (%) (Auto) 25 % (24-48) Monocytes (%) (Auto) 13 % (0-9) Eosinophils (%) (Auto) 6 % (0-3) Basophils (%) (Auto) 0 % (0-3) Neutrophils # (Auto) 3.4 x10^3uL (1.8-7.7) Lymphocytes # (Auto) 1.5 x10^3/uL (1.0-4.8) Monocytes # (Auto) 0.8 x10^3/uL (0.0-1.1) Eosinophils # (Auto) 0.3 x10^3/uL (0.0-0.7) Basophils # (Auto) 0.0 x10^3/uL (0.0-0.2) Prothrombin Time 13.0 SEC (11.7-14.0) Prothromb Time International Ratio 1.0 (0.8-1.1) Sodium Level 141 mmol/L (136-145) Potassium Level 4.0 mmol/L (3.5-5.1) Chloride Level 106 mmol/L (98-107) Carbon Dioxide Level 28 mmol/L (21-32) Anion Gap 7 (6-14) Blood Urea Nitrogen 23 mg/dL (7-20) Creatinine 1.4 mg/dL (0.6-1.0) Estimated GFR (Cockcroft-Gault) 43.6 BUN/Creatinine Ratio 16 (6-20) Glucose Level 171 mg/dL (70-99) Calcium Level 8.8 mg/dL (8.5-10.1) Magnesium Level 2.1 mg/dL (1.8-2.4) Total Bilirubin 0.3 mg/dL (0.2-1.0) Aspartate Amino Transf (AST/SGOT) 25 U/L (15-37) Alanine Aminotransferase (ALT/SGPT) 25 U/L (14-59) Alkaline Phosphatase 125 U/L (46-116) Troponin I Quantitative < 0.017 ng/mL (0.000-0.055) < 0.017 ng/mL (0.000-0.055) QS-Wny-I-Type Natriuretic Peptide 2033 pg/mL (0-449) Total Protein 7.6 g/dL (6.4-8.2) Albumin 3.3 g/dL (3.4-5.0) Albumin/Globulin Ratio 0.8 (1.0-1.7) Glucose (Fingerstick) 108 mg/dL (70-99) Test 05/11/17 06:00 05/11/17 08:12 Troponin I Quantitative < 0.017 ng/mL (0.000-0.055) Glucose (Fingerstick) 87 mg/dL (70-99) ECHOCARDIOGRAM ECHOCARDIOGRAM <Conclusion> Left ventricle systolic function is moderately impaired. The Ejection Fraction is 30-35%. There is global hypokinesis of the left ventricle. The mid to distal 2/3rds of the LV is severely hypokinetic, suggestive of multivessel ischemic cardiomyopathy. Tissue Doppler imaging reveals moderate left ventricular diastolic dysfunction. Doppler and Color Flow revealed mild tricuspid regurgitation. The PA pressure was estimated at 50 mmHg. DATE: 06/03/16 1440 HEART CATH HEART CATH 06/04/2016: 1. Hemodynamics: Left ventricular end-diastolic pressure 19 mmHg. No pullback gradient across the aortic valve. 2. Coronary angiography: a. The left main coronary artery arose from the left sinus of Valsalva, gave rise to the left anterior descending and left circumflex arteries and did not show any significant stenosis. b. The left anterior descending artery showed a long 90% stenosis involving the midsegment. The diagonal branch showed mild to moderate diffuse disease. c. The left circumflex artery showed 30% stenosis in the proximal segment. No critical lesions were noted. d. The right coronary artery was a dominant vessel arising from the right sinus of Valsalva that showed 40% stenosis in the proximal segment, 90% stenosis in the midsegment and 30-40% stenosis in the distal segment. INTERVENTION The right coronary artery was engaged with a 6 Stateless JR4 guide catheter and the stenosis in the midsegment was crossed with a 0.014 inch [employer] pro-water guidewire. This was successfully treated with a 2.75 x 18 mm Xience Alpine drug -eluting stent. Follow-up angiography showed resolution of the stenosis to 0% with MIKE 3 distal flow. Subsequently, the left main coronary artery was engaged with a 6 Stateless XB 3.5 guide catheter and the stenosis in the midsegment of the left anterior descending artery was crossed with the same pro- water guidewire. This was successfully treated with a 2.5 x 28 mm Xience Alpine drug-eluting stent. Follow-up angiography showed resolution of the stenosis to 0% with MIKE 3 distal flow. Patient tolerated the procedure well. Hemostasis was achieved using TR band. There were no immediate complications. Conclusion 1. Severe two-vessel coronary artery disease 2. Successful PCI/drug eluting stents placement to the right coronary and left anterior descending arteries Recommendations 1. Aspirin 325 mg daily 2. Plavix 75 mg daily for preferably one year 3. Cardiovascular risk factor modification 4. Repeat 2D echo in 3 months to evaluate the need for AICD implantation for primary prevention of sudden cardiac . DATE: 06/24/16 1651 CORONARY ANGIOGRAPHY: LM is a large caliber vessel with normal angiographic appearance. LAD is a large caliber vessel with patent mid stents. The distal vessel is small in caliber and has no significant motion suggestive of severe anterior wall HK. D1/D2 are small caliber vessels with normal angiographic apeparance. LCx is a moderate caliber non-dominant vessel with an ostial/proximal 50% stenosis (unchanged from prior angiograms more than 2 weeks ago). OM1 is a moderate caliber vessel with normal angiographic appearance. RCA is a large caliber dominant vessel with an ostial 70% stenosis (dampening of the catheter upon engagement) and a patent mid stent, followed by distal 50% stenosis. RPDA and RPL are small to moderate caliber vessels with normal angiographic appearance. Conclusion 1. Elevated left sided filling pressures. LVEDP 35 mm Hg. 2. Severe three vessel [place] CAD. 3. Patent stents in the RCA, LAD. 4. Positive iFR of the ostial RCA with successful PCI with implantation of a Resolute 3.0/9 TRINITY. Recommendations Aggressive Medical Therapy ASSESSMENT/PLAN ASSESSMENT/PLAN 1. Chest pain, atypical- troponin series normal- AMI ruled out. EKG without significant acute changes 2. CAD s/p PCI/stents to LAD and RCA 3. Chronic systolic HF with ICM; LVEF 30-35% 4. Hypertension; well-controlled 5. Hyperlipidemia; statin 6. Diabetes, II; continue as per PCP 7. Hypothyroidism; continue levothyroxine Recommendations Echo to assess LV function/ presence of new WMA Resume secondary prevention measures Obtain recent stress test report from [facility] (reportedly normal) D/w primary Give significant history/risk factors and recurrent chest pain despite normal stress test, would recommend proceeding with cardiac cath to r/o significant obstructive disease. R/b/a discussed with patient and is agreeable. NPO p MN. Will plan for in the am. Check lipids. Problems: MICHAEL VILLARREAL APRN May 11, 2017 10:59
[2017-05-11] MEDS: DICYCLOMINE HCL 10 MG CAPSULE PO SCH ×3 (12:17→21:22)
[2017-05-11] MEDS: ASPIRIN CHEWABLE 81 MG TABLET. PO SCH (12:17)
[2017-05-11] MEDS: TICAGRELOR 90 MG TABLET. PO SCH ×2 (12:17→21:22)
[2017-05-11] MEDS: FAMOTIDINE 20 MG TABLET. PO SCH (12:17)
[2017-05-11] MEDS: FUROSEMIDE 40 MG TABLET. PO SCH ×2 (12:18→17:54)
[2017-05-11] MEDS: CARVEDILOL 6.25 MG TABLET. PO SCH ×2 (12:26→17:54)
--- NOTE | 2017-05-11 12:27 | PDOC2 ---
CONSULT Date of Consult Date of Consult DATE: 05/11/17 TIME: 12:21 Reason for Consult Reason for Consult: RENAL FAILURE Referring Physician Referring Physician: MICHELA Identification/Chief Complaint Chief Complaint SOB AND CHEST PAIN Problems: Source Source: Chart review, Patient History of Present Illness Reason for Visit: THIS IS AN 82 YR OLD ADMITTED WITH RIGHT SIDED CHEST PAIN AND SOB. ASSOCIATED WITH DIAPHORESIS. CARDIOLOGY EVAL IS ONGOING AT THIS TIME. CXRAY NEG FOR CHF. USUALLY HAS LE EDEMA BUT THIS IS RESOLVED SINCE HER LASIX DOSE WAS INCREASED TO 80 MG BID 2 MONTHS AGO. CR IS 1.4 HERE. REVIEW OF LABS SHOWED STAGE 3 CKD WITH BASELINE CR OF 1.5 ON AVG. NO NSAID USE HX. HX POS FOR DM AND HTN RELATED END ORGAN DAMAGE. NO HX OF ANY KIDNEY OR BLADDER SURGERIES HEMATURIA DYSURIA OF FREQUENCY NOTED Past Medical History Cardiovascular: CAD, CHF, HTN, [place], Hyperlipidemia Pulmonary: Asthma, Other CENTRAL NERVOUS SYSTEM: Other GI: Constipation, GERD Heme/Onc: Anemia NOS Psych: Anxiety Musculoskeletal: Osteoarthritis, Other Renal/: Chronic renal insuff Endocrine: Diabetes Past Surgical History Past Surgical History: Appendectomy, Cholecystectomy, Cataract Removal, Other Family History Family History: No Significant Social History No ALCOHOL: none Drugs: None Lives: [facility] Current Problem List Problem List Problems Medical Problems: (1) Unstable angina Status: Acute Current Medications Current Medications Current Medications Nitroglycerin (Nitrostat) 0.4 mg PRN Q5MIN PRN SL CHEST PAIN Last administered on 05/10/17 22:39; Start 05/10/17 at 17:15 Multi-Ingredient Mouthwash/Gargle (Gi Cocktail Single Dose) 15 ml 1X ONCE SWSW Last administered on 05/10/17 17:20; Start 05/10/17 at 17:30; Stop 05/10/17 at 17:31; Status DC Furosemide (Lasix) 20 mg 1X ONCE IVP Last administered on 05/10/17 18:21; Start 05/10/17 at 18:30; Stop 05/10/17 at 18:31; Status DC Morphine Sulfate 2 mg PRN Q2HR PRN IV PAIN Last administered on 05/11/17 03:04 ; Start 05/10/17 at 18:15; Stop 05/11/17 at 18:14 Acetaminophen (Tylenol) 650 mg PRN Q4HRS PRN PO FEVER; Start 05/10/17 at 18:15 ; Stop 05/11/17 at 18:14 Nitroglycerin (Nitrostat) 0.4 mg PRN Q5MIN PRN SL CHEST PAIN; Start 05/10/17 at 18:15; Stop 05/10/17 at 18:16; Status DC Ondansetron HCl (Zofran) 4 mg PRN Q6HRS PRN IV NAUSEA/VOMITING Last administered on 05/11/17 03:03; Start 05/10/17 at 19:00 Ondansetron HCl (Zofran Odt) 4 mg PRN Q6HRS PRN PO NAUSEA/VOMITING; Start 05/10 at 19:00 Aspirin (Children'S Aspirin) 81 mg DAILY PO ; Start 05/11/17 at 09:00 Atorvastatin Calcium (Lipitor) 40 mg QHS PO Last administered on 05/10/17 22: 11; Start 05/10/17 at 21:00 Bisacodyl (Dulcolax Supp) 10 mg PRN DAILY PRN RC CONSTIPATION; Start 05/10/17 at 19:00 Budesonide (Pulmicort) 0.5 mg RTBID NEB Last administered on 05/11/17 07:48; Start 05/10/17 at 20:00 Carvedilol (Coreg) 6.25 mg BIDWMEALS PO Last administered on 05/10/17 22:12; Start 05/10/17 at 21:00 Colchicine (Colcrys) 0.6 mg PRN DAILY PRN PO gout; Start 05/10/17 at 19:00 Diclofenac Sodium (Voltaren) 2 amy BID TP ; Start 05/10/17 at 21:00 Dicyclomine HCl (Bentyl) 10 mg TID PO Last administered on 05/10/17 22:07; Start 05/10/17 at 21:00 Famotidine (Pepcid) 20 mg DAILY PO ; Start 05/11/17 at 09:00 Furosemide (Lasix) 40 mg DAILY PO ; Start 05/11/17 at 09:00; Stop 05/11/17 at 11 :37; Status DC Acetaminophen/ Hydrocodone Bitart (Lortab 5/325) 1 tab PRN Q6HRS PRN PO PAIN; Start 05/10/17 at 19:00 Albuterol/ Ipratropium (Duoneb) 3 ml BID NEB ; Start 05/10/17 at 21:00; Stop at 04:33; Status DC Lidocaine (Lidoderm) 1 patch DAILY TP ; Start 05/11/17 at 09:00 Magnesium Hydroxide (Milk Of Magnesia) 400 mg DAILY PO ; Start 05/11/17 at 09:00 Mupirocin (Bactroban) 1 amy TID NS ; Start 05/10/17 at 21:00; Stop 05/10/17 at 21:00; Status DC Nitroglycerin (Nitrostat) 0.4 mg PRN Q5MIN PRN SL CHEST PAIN; Start 05/10/17 at 19:00; Status Cancel Polyethylene Glycol (miraLAX PACKET) 17 gm DAILY PO ; Start 05/11/17 at 09:00 Ticagrelor (Brilinta) 90 mg BID PO ; Start 05/10/17 at 21:00 Non-Formulary Medication 1 tab DAILY PO ; Start 05/11/17 at 09:00; Stop at 09:00; Status DC Tizanidine HCl (Zanaflex) 2 mg PRN Q8HRS PRN PO MUSCLE SPASMS; Start 05/10/17 at 19:30 Insulin Detemir (Levemir) 30 units QHS SQ Last administered on 05/10/17 22:28 ; Start 05/10/17 at 21:00 Insulin Aspart (NovoLOG) 0-9 UNITS TIDWMEALS SQ ; Start 05/11/17 at 08:00 Dextrose (Dextrose 50%-Water Syringe) 12.5 gm PRN Q15MIN PRN IV SEE COMMENTS; Start 05/10/17 at 19:00 Mupirocin (Bactroban) 1 amy TID TP ; Start 05/10/17 at 21:00; Stop 05/10/17 at 21:05; Status DC Multi-Ingredient Mouthwash/Gargle (Gi Cocktail Single Dose) 15 ml 1X ONCE SWSW Last administered on 05/11/17 04:36; Start 05/11/17 at 05:00; Stop 05/11/17 at 05:01; Status DC Al Hydroxide/Mg Hydroxide (Mylanta Plus Xs) 30 ml TID PRN PRN PO HEARTBURN / GAS; Start 05/11/17 at 04:30 Albuterol/ Ipratropium (Duoneb) 3 ml RTBID NEB Last administered on 05/11/17t 07:48; Start 05/11/17 at 08:00 Furosemide (Lasix) 80 mg BID66 PO ; Start 05/11/17 at 12:00 Active Scripts Active [place] 5-325 Tablet (Acetaminophen/Hydrocodone Bitart) 1 Each Tablet 1 Tab PO PRN Q6HRS PRN Colcrys (Colchicine) 0.6 Mg Tablet 0.6 Mg PO EVERY HOUR PRN Take 1 pill every hour by mouth as needed for an acute gout attack up to 5 doses. Stop if you have nausea or stomach irritation. Brilinta (Ticagrelor) 90 Mg Tablet 90 Mg PO BID Duoneb 0.5-3(2.5) Mg/3 Ml (Albuterol/Ipratropium) 3 Ml Ampul.neb 3 Ml NEB BID Atorvastatin Calcium 40 Mg Tablet 40 Mg PO QHS Reported Glipizide 10 Mg Tablet 1 Tab PO BID Furosemide 80 Mg Tablet 1 Tab PO BID Omeprazole 40 Mg Capsule.dr 1 Cap PO DAILY Benzonatate 100 Mg Capsule 100 Mg PO PRN TID Gabapentin 300 Mg Capsule 300 PO DAILY Tizanidine Hcl 2 Mg Capsule 2 Mg PO QID PRN NITROGLYCERIN SubLingual (Nitroglycerin) 0.4 Mg Tab.subl 0.4 Mg SL PRN Q5MIN PRN Carvedilol 6.25 Mg Tablet 1 Tab PO BID Voltaren (Diclofenac Sodium) 100 Gm Gel..gram. 2 Gm TP BID PRN Lantus (Insulin Glargine,Hum.rec.anlog) 100 Unit/1 Ml Vial 30 Unit SQ Mupirocin Ointment (Mupirocin) 22 Gm Oint...g. 1 Amy TP TID PRN Lidoderm (Lidocaine) 700 Mg Adh..patch 1 Patch TP DAILY Aspirin 81 Mg Tab.chew 1 Tab PO DAILY Dicyclomine Hcl 10 Mg Capsule 1 Cap PO TID Miralax (Polyethylene Glycol 3350) 17 Gm Powd.pack 1 Packet PO DAILY PRN Allergies Allergies: Coded Allergies: metformin (Verified Allergy, Intermediate, 02/11/17) tramadol (Verified Allergy, Intermediate, 06/26/16) ROS General: YES: Fatigue PSYCHOLOGICAL ROS: YES: Anxiety Eyes: Yes Blurry vision HEENT: YES: Heacaches Respiratory: YES: Cough, Shortness of breath Cardiovascular: yes Chest Pain, yes Other (DIAPHORESIS) Gastrointestinal: Yes Constipation Genitourinary: YES Other (NOCTURIA) Musculoskeletal: Yes Muscular Weakness Neurological: Yes Weakness Skin: Yes Dry Skin Physical Exam General: Alert, Oriented X3, Cooperative, No acute distress HEENT: Atraumatic, PERRLA Lungs: Clear to auscultation Heart: Regular rate, Normal S1, Normal S2 Abdomen: Normal bowel sounds, Soft, No tenderness Neuro: Normal speech, Cranial nerves 3-12 NL Psych/Mental Status: Mental status NL, Mood NL MUSCULOSKELETAL: No deformity, No swelling Vitals VITALS Vital Signs Date Time Temp Pulse Resp B/P (MAP) Pulse Ox O2 Delivery O2 Flow Rate FiO2 05/11/17 11:00 97.6 66 18 109/60 (76) 96 Room Air 97.6 Labs Labs Laboratory Tests Test 05/10/17 17:00 05/10/17 17:17 05/10/17 20:15 05/11/17 00:20 Urine Collection Type Unknown Urine Color Yellow Urine Clarity Clear Urine pH 5.5 Urine Specific [place] >=1.030 Urine Protein Negative mg/dL (NEG-TRACE) Urine Glucose (UA) Negative mg/dL (NEG) Urine Ketones (Stick) Negative mg/dL (NEG) Urine Blood Negative (NEG) Urine Nitrite Negative (NEG) Urine Bilirubin Negative (NEG) Urine Urobilinogen Dipstick 0.2 mg/dL (0.2 mg/dL) Urine Leukocyte Esterase Negative (NEG) Urine RBC Occ /HPF (0-2) Urine WBC Occ /HPF (0-4) Urine Squamous Epithelial Cells Mod /LPF Urine Bacteria Few /HPF (0-FEW) Urine Hyaline Casts Many /HPF Urine Mucus Slight /LPF White Blood Count 6.1 x10^3/uL (4.0-11.0) Red Blood Count 3.60 x10^6/uL (3.50-5.40) Hemoglobin 11.1 g/dL (12.0-15.5) Hematocrit 33.4 % (36.0-47.0) Mean Corpuscular Volume 93 fL (79-100) Mean Corpuscular Hemoglobin 31 pg (25-35) Mean Corpuscular Hemoglobin Concent 33 g/dL (31-37) Red Cell Distribution Width 13.4 % (11.5-14.5) Platelet Count 173 x10^3/uL (140-400) Neutrophils (%) (Auto) 56 % (31-73) Lymphocytes (%) (Auto) 25 % (24-48) Monocytes (%) (Auto) 13 % (0-9) Eosinophils (%) (Auto) 6 % (0-3) Basophils (%) (Auto) 0 % (0-3) Neutrophils # (Auto) 3.4 x10^3uL (1.8-7.7) Lymphocytes # (Auto) 1.5 x10^3/uL (1.0-4.8) Monocytes # (Auto) 0.8 x10^3/uL (0.0-1.1) Eosinophils # (Auto) 0.3 x10^3/uL (0.0-0.7) Basophils # (Auto) 0.0 x10^3/uL (0.0-0.2) Prothrombin Time 13.0 SEC (11.7-14.0) Prothromb Time International Ratio 1.0 (0.8-1.1) Sodium Level 141 mmol/L (136-145) Potassium Level 4.0 mmol/L (3.5-5.1) Chloride Level 106 mmol/L (98-107) Carbon Dioxide Level 28 mmol/L (21-32) Anion Gap 7 (6-14) Blood Urea Nitrogen 23 mg/dL (7-20) Creatinine 1.4 mg/dL (0.6-1.0) Estimated GFR (Cockcroft-Gault) 43.6 BUN/Creatinine Ratio 16 (6-20) Glucose Level 171 mg/dL (70-99) Calcium Level 8.8 mg/dL (8.5-10.1) Magnesium Level 2.1 mg/dL (1.8-2.4) Total Bilirubin 0.3 mg/dL (0.2-1.0) Aspartate Amino Transf (AST/SGOT) 25 U/L (15-37) Alanine Aminotransferase (ALT/SGPT) 25 U/L (14-59) Alkaline Phosphatase 125 U/L (46-116) Troponin I Quantitative < 0.017 ng/mL (0.000-0.055) < 0.017 ng/mL (0.000-0.055) NH-Dtm-P-Type Natriuretic Peptide 2033 pg/mL (0-449) Total Protein 7.6 g/dL (6.4-8.2) Albumin 3.3 g/dL (3.4-5.0) Albumin/Globulin Ratio 0.8 (1.0-1.7) Glucose (Fingerstick) 108 mg/dL (70-99) Test 05/11/17 06:00 05/11/17 08:12 05/11/17 11:32 Troponin I Quantitative < 0.017 ng/mL (0.000-0.055) Glucose (Fingerstick) 87 mg/dL (70-99) 64 mg/dL (70-99) Laboratory Tests Test 05/10/17 17:00 05/10/17 17:17 05/10/17 20:15 05/11/17 00:20 Urine Collection Type Unknown Urine Color Yellow Urine Clarity Clear Urine pH 5.5 Urine Specific [place] >=1.030 Urine Protein Negative mg/dL (NEG-TRACE) Urine Glucose (UA) Negative mg/dL (NEG) Urine Ketones (Stick) Negative mg/dL (NEG) Urine Blood Negative (NEG) Urine Nitrite Negative (NEG) Urine Bilirubin Negative (NEG) Urine Urobilinogen Dipstick 0.2 mg/dL (0.2 mg/dL) Urine Leukocyte Esterase Negative (NEG) Urine RBC Occ /HPF (0-2) Urine WBC Occ /HPF (0-4) Urine Squamous Epithelial Cells Mod /LPF Urine Bacteria Few /HPF (0-FEW) Urine Hyaline Casts Many /HPF Urine Mucus Slight /LPF White Blood Count 6.1 x10^3/uL (4.0-11.0) Red Blood Count 3.60 x10^6/uL (3.50-5.40) Hemoglobin 11.1 g/dL (12.0-15.5) Hematocrit 33.4 % (36.0-47.0) Mean Corpuscular Volume 93 fL (79-100) Mean Corpuscular Hemoglobin 31 pg (25-35) Mean Corpuscular Hemoglobin Concent 33 g/dL (31-37) Red Cell Distribution Width 13.4 % (11.5-14.5) Platelet Count 173 x10^3/uL (140-400) Neutrophils (%) (Auto) 56 % (31-73) Lymphocytes (%) (Auto) 25 % (24-48) Monocytes (%) (Auto) 13 % (0-9) Eosinophils (%) (Auto) 6 % (0-3) Basophils (%) (Auto) 0 % (0-3) Neutrophils # (Auto) 3.4 x10^3uL (1.8-7.7) Lymphocytes # (Auto) 1.5 x10^3/uL (1.0-4.8) Monocytes # (Auto) 0.8 x10^3/uL (0.0-1.1) Eosinophils # (Auto) 0.3 x10^3/uL (0.0-0.7) Basophils # (Auto) 0.0 x10^3/uL (0.0-0.2) Prothrombin Time 13.0 SEC (11.7-14.0) Prothromb Time International Ratio 1.0 (0.8-1.1) Sodium Level 141 mmol/L (136-145) Potassium Level 4.0 mmol/L (3.5-5.1) Chloride Level 106 mmol/L (98-107) Carbon Dioxide Level 28 mmol/L (21-32) Anion Gap 7 (6-14) Blood Urea Nitrogen 23 mg/dL (7-20) Creatinine 1.4 mg/dL (0.6-1.0) Estimated GFR (Cockcroft-Gault) 43.6 BUN/Creatinine Ratio 16 (6-20) Glucose Level 171 mg/dL (70-99) Calcium Level 8.8 mg/dL (8.5-10.1) Magnesium Level 2.1 mg/dL (1.8-2.4) Total Bilirubin 0.3 mg/dL (0.2-1.0) Aspartate Amino Transf (AST/SGOT) 25 U/L (15-37) Alanine Aminotransferase (ALT/SGPT) 25 U/L (14-59) Alkaline Phosphatase 125 U/L (46-116) Troponin I Quantitative < 0.017 ng/mL (0.000-0.055) < 0.017 ng/mL (0.000-0.055) XX-Urt-Q-Type Natriuretic Peptide 2033 pg/mL (0-449) Total Protein 7.6 g/dL (6.4-8.2) Albumin 3.3 g/dL (3.4-5.0) Albumin/Globulin Ratio 0.8 (1.0-1.7) Glucose (Fingerstick) 108 mg/dL (70-99) Test 05/11/17 06:00 05/11/17 08:12 05/11/17 11:32 Troponin I Quantitative < 0.017 ng/mL (0.000-0.055) Glucose (Fingerstick) 87 mg/dL (70-99) 64 mg/dL (70-99) Assessment/Plan Assessment/Plan IMP CHEST PAIN DYSPNEA DM II HTN OBESITY MILD ANEMIA OF CHRONIC DISEASE CKD STAGE 3 WITH CR 1.5 ON AVG-CURRENTLY AT BASELINE PLAN CARDIOLOGY EVAL AND TX RESUME HOME DOSE OF LASIX - 80 MG BID WILL FOLLOW ALAYNA PRITCHARD MD May 11, 2017 12:27
--- NOTE | 2017-05-11 13:41 | PDOC ---
PROGRESS NOTES Chief Complaint Chief Complaint 1. CHEST PAIN, with tenderness, muscularskeletal pain vs. unstable angina 2. stable systolic CHF EF 35% 3. Obesity BMI 35.5 4. HTN, DM, dyslipidemia - chronic stable 5,. Hx CAD with 4 indwelling stents, pt refused brilinta said not taking it to nurse 6. CKD, creat 1.9 before, now 1.4 PPM HYPothyroidism plan: fu with renal, card cath tmr as per card cont home meds , hold glipizide, decrease levemir to 25u qhs, ssi. need to double check with card if pt need brilinda, would think so, but pt refused pt told me no echo nor MPI recently, but as per card they are normal. History of Present Illness History of Present Illness ROS: no fever, chills, sob still chest pain, with right upper chest , middle chest tenderness, also has some abd pain, cannot tell me if they are the same. abd no tenderness. admit has GERD. SAID not taking brilinta at home Vitals Vitals Vital Signs Date Time Temp Pulse Resp B/P (MAP) Pulse Ox O2 Delivery O2 Flow Rate FiO2 05/11/17 12:26 109/60 05/11/17 11:00 97.6 66 18 96 Room Air 97.6 Physical Exam Physical Exam middle chest wall tenderness General: Alert, Oriented X3, Cooperative, No acute distress Heart: Regular rate, Normal S1, Normal S2 Lungs: Clear, Crackles Abdomen: Normal bowel sounds, Soft, No tenderness Extremities: No clubbing, No cyanosis, No edema, Normal pulses Skin: No breakdown, No significant lesion Labs LABS Laboratory Tests Test 05/10/17 17:00 05/10/17 17:17 05/10/17 20:15 05/11/17 00:20 Urine Collection Type Unknown Urine Color Yellow Urine Clarity Clear Urine pH 5.5 Urine Specific [place] >=1.030 Urine Protein Negative mg/dL (NEG-TRACE) Urine Glucose (UA) Negative mg/dL (NEG) Urine Ketones (Stick) Negative mg/dL (NEG) Urine Blood Negative (NEG) Urine Nitrite Negative (NEG) Urine Bilirubin Negative (NEG) Urine Urobilinogen Dipstick 0.2 mg/dL (0.2 mg/dL) Urine Leukocyte Esterase Negative (NEG) Urine RBC Occ /HPF (0-2) Urine WBC Occ /HPF (0-4) Urine Squamous Epithelial Cells Mod /LPF Urine Bacteria Few /HPF (0-FEW) Urine Hyaline Casts Many /HPF Urine Mucus Slight /LPF White Blood Count 6.1 x10^3/uL (4.0-11.0) Red Blood Count 3.60 x10^6/uL (3.50-5.40) Hemoglobin 11.1 g/dL (12.0-15.5) Hematocrit 33.4 % (36.0-47.0) Mean Corpuscular Volume 93 fL (79-100) Mean Corpuscular Hemoglobin 31 pg (25-35) Mean Corpuscular Hemoglobin Concent 33 g/dL (31-37) Red Cell Distribution Width 13.4 % (11.5-14.5) Platelet Count 173 x10^3/uL (140-400) Neutrophils (%) (Auto) 56 % (31-73) Lymphocytes (%) (Auto) 25 % (24-48) Monocytes (%) (Auto) 13 % (0-9) Eosinophils (%) (Auto) 6 % (0-3) Basophils (%) (Auto) 0 % (0-3) Neutrophils # (Auto) 3.4 x10^3uL (1.8-7.7) Lymphocytes # (Auto) 1.5 x10^3/uL (1.0-4.8) Monocytes # (Auto) 0.8 x10^3/uL (0.0-1.1) Eosinophils # (Auto) 0.3 x10^3/uL (0.0-0.7) Basophils # (Auto) 0.0 x10^3/uL (0.0-0.2) Prothrombin Time 13.0 SEC (11.7-14.0) Prothromb Time International Ratio 1.0 (0.8-1.1) Sodium Level 141 mmol/L (136-145) Potassium Level 4.0 mmol/L (3.5-5.1) Chloride Level 106 mmol/L (98-107) Carbon Dioxide Level 28 mmol/L (21-32) Anion Gap 7 (6-14) Blood Urea Nitrogen 23 mg/dL (7-20) Creatinine 1.4 mg/dL (0.6-1.0) Estimated GFR (Cockcroft-Gault) 43.6 BUN/Creatinine Ratio 16 (6-20) Glucose Level 171 mg/dL (70-99) Calcium Level 8.8 mg/dL (8.5-10.1) Magnesium Level 2.1 mg/dL (1.8-2.4) Total Bilirubin 0.3 mg/dL (0.2-1.0) Aspartate Amino Transf (AST/SGOT) 25 U/L (15-37) Alanine Aminotransferase (ALT/SGPT) 25 U/L (14-59) Alkaline Phosphatase 125 U/L (46-116) Troponin I Quantitative < 0.017 ng/mL (0.000-0.055) < 0.017 ng/mL (0.000-0.055) MI-Wuz-D-Type Natriuretic Peptide 2033 pg/mL (0-449) Total Protein 7.6 g/dL (6.4-8.2) Albumin 3.3 g/dL (3.4-5.0) Albumin/Globulin Ratio 0.8 (1.0-1.7) Glucose (Fingerstick) 108 mg/dL (70-99) Test 05/11/17 06:00 05/11/17 08:12 05/11/17 11:32 Troponin I Quantitative < 0.017 ng/mL (0.000-0.055) Glucose (Fingerstick) 87 mg/dL (70-99) 64 mg/dL (70-99) Assessment and Plan Assessmemt and Plan Problems Medical Problems: (1) Unstable angina Status: Acute Problems: Comment Review of Relevant I have reviewed the following items mina (where applicable) has been applied. Labs Laboratory Tests Test 05/10/17 17:00 05/10/17 17:17 05/10/17 20:15 05/11/17 00:20 Urine Collection Type Unknown Urine Color Yellow Urine Clarity Clear Urine pH 5.5 Urine Specific [place] >=1.030 Urine Protein Negative mg/dL (NEG-TRACE) Urine Glucose (UA) Negative mg/dL (NEG) Urine Ketones (Stick) Negative mg/dL (NEG) Urine Blood Negative (NEG) Urine Nitrite Negative (NEG) Urine Bilirubin Negative (NEG) Urine Urobilinogen Dipstick 0.2 mg/dL (0.2 mg/dL) Urine Leukocyte Esterase Negative (NEG) Urine RBC Occ /HPF (0-2) Urine WBC Occ /HPF (0-4) Urine Squamous Epithelial Cells Mod /LPF Urine Bacteria Few /HPF (0-FEW) Urine Hyaline Casts Many /HPF Urine Mucus Slight /LPF White Blood Count 6.1 x10^3/uL (4.0-11.0) Red Blood Count 3.60 x10^6/uL (3.50-5.40) Hemoglobin 11.1 g/dL (12.0-15.5) Hematocrit 33.4 % (36.0-47.0) Mean Corpuscular Volume 93 fL (79-100) Mean Corpuscular Hemoglobin 31 pg (25-35) Mean Corpuscular Hemoglobin Concent 33 g/dL (31-37) Red Cell Distribution Width 13.4 % (11.5-14.5) Platelet Count 173 x10^3/uL (140-400) Neutrophils (%) (Auto) 56 % (31-73) Lymphocytes (%) (Auto) 25 % (24-48) Monocytes (%) (Auto) 13 % (0-9) Eosinophils (%) (Auto) 6 % (0-3) Basophils (%) (Auto) 0 % (0-3) Neutrophils # (Auto) 3.4 x10^3uL (1.8-7.7) Lymphocytes # (Auto) 1.5 x10^3/uL (1.0-4.8) Monocytes # (Auto) 0.8 x10^3/uL (0.0-1.1) Eosinophils # (Auto) 0.3 x10^3/uL (0.0-0.7) Basophils # (Auto) 0.0 x10^3/uL (0.0-0.2) Prothrombin Time 13.0 SEC (11.7-14.0) Prothromb Time International Ratio 1.0 (0.8-1.1) Sodium Level 141 mmol/L (136-145) Potassium Level 4.0 mmol/L (3.5-5.1) Chloride Level 106 mmol/L (98-107) Carbon Dioxide Level 28 mmol/L (21-32) Anion Gap 7 (6-14) Blood Urea Nitrogen 23 mg/dL (7-20) Creatinine 1.4 mg/dL (0.6-1.0) Estimated GFR (Cockcroft-Gault) 43.6 BUN/Creatinine Ratio 16 (6-20) Glucose Level 171 mg/dL (70-99) Calcium Level 8.8 mg/dL (8.5-10.1) Magnesium Level 2.1 mg/dL (1.8-2.4) Total Bilirubin 0.3 mg/dL (0.2-1.0) Aspartate Amino Transf (AST/SGOT) 25 U/L (15-37) Alanine Aminotransferase (ALT/SGPT) 25 U/L (14-59) Alkaline Phosphatase 125 U/L (46-116) Troponin I Quantitative < 0.017 ng/mL (0.000-0.055) < 0.017 ng/mL (0.000-0.055) WM-Myz-H-Type Natriuretic Peptide 2033 pg/mL (0-449) Total Protein 7.6 g/dL (6.4-8.2) Albumin 3.3 g/dL (3.4-5.0) Albumin/Globulin Ratio 0.8 (1.0-1.7) Glucose (Fingerstick) 108 mg/dL (70-99) Test 05/11/17 06:00 05/11/17 08:12 05/11/17 11:32 Troponin I Quantitative < 0.017 ng/mL (0.000-0.055) Glucose (Fingerstick) 87 mg/dL (70-99) 64 mg/dL (70-99) Laboratory Tests Test 05/10/17 17:00 05/10/17 17:17 05/10/17 20:15 05/11/17 00:20 Urine Collection Type Unknown Urine Color Yellow Urine Clarity Clear Urine pH 5.5 Urine Specific [place] >=1.030 Urine Protein Negative mg/dL (NEG-TRACE) Urine Glucose (UA) Negative mg/dL (NEG) Urine Ketones (Stick) Negative mg/dL (NEG) Urine Blood Negative (NEG) Urine Nitrite Negative (NEG) Urine Bilirubin Negative (NEG) Urine Urobilinogen Dipstick 0.2 mg/dL (0.2 mg/dL) Urine Leukocyte Esterase Negative (NEG) Urine RBC Occ /HPF (0-2) Urine WBC Occ /HPF (0-4) Urine Squamous Epithelial Cells Mod /LPF Urine Bacteria Few /HPF (0-FEW) Urine Hyaline Casts Many /HPF Urine Mucus Slight /LPF White Blood Count 6.1 x10^3/uL (4.0-11.0) Red Blood Count 3.60 x10^6/uL (3.50-5.40) Hemoglobin 11.1 g/dL (12.0-15.5) Hematocrit 33.4 % (36.0-47.0) Mean Corpuscular Volume 93 fL (79-100) Mean Corpuscular Hemoglobin 31 pg (25-35) Mean Corpuscular Hemoglobin Concent 33 g/dL (31-37) Red Cell Distribution Width 13.4 % (11.5-14.5) Platelet Count 173 x10^3/uL (140-400) Neutrophils (%) (Auto) 56 % (31-73) Lymphocytes (%) (Auto) 25 % (24-48) Monocytes (%) (Auto) 13 % (0-9) Eosinophils (%) (Auto) 6 % (0-3) Basophils (%) (Auto) 0 % (0-3) Neutrophils # (Auto) 3.4 x10^3uL (1.8-7.7) Lymphocytes # (Auto) 1.5 x10^3/uL (1.0-4.8) Monocytes # (Auto) 0.8 x10^3/uL (0.0-1.1) Eosinophils # (Auto) 0.3 x10^3/uL (0.0-0.7) Basophils # (Auto) 0.0 x10^3/uL (0.0-0.2) Prothrombin Time 13.0 SEC (11.7-14.0) Prothromb Time International Ratio 1.0 (0.8-1.1) Sodium Level 141 mmol/L (136-145) Potassium Level 4.0 mmol/L (3.5-5.1) Chloride Level 106 mmol/L (98-107) Carbon Dioxide Level 28 mmol/L (21-32) Anion Gap 7 (6-14) Blood Urea Nitrogen 23 mg/dL (7-20) Creatinine 1.4 mg/dL (0.6-1.0) Estimated GFR (Cockcroft-Gault) 43.6 BUN/Creatinine Ratio 16 (6-20) Glucose Level 171 mg/dL (70-99) Calcium Level 8.8 mg/dL (8.5-10.1) Magnesium Level 2.1 mg/dL (1.8-2.4) Total Bilirubin 0.3 mg/dL (0.2-1.0) Aspartate Amino Transf (AST/SGOT) 25 U/L (15-37) Alanine Aminotransferase (ALT/SGPT) 25 U/L (14-59) Alkaline Phosphatase 125 U/L (46-116) Troponin I Quantitative < 0.017 ng/mL (0.000-0.055) < 0.017 ng/mL (0.000-0.055) SO-Mmw-D-Type Natriuretic Peptide 2033 pg/mL (0-449) Total Protein 7.6 g/dL (6.4-8.2) Albumin 3.3 g/dL (3.4-5.0) Albumin/Globulin Ratio 0.8 (1.0-1.7) Glucose (Fingerstick) 108 mg/dL (70-99) Test 05/11/17 06:00 05/11/17 08:12 05/11/17 11:32 Troponin I Quantitative < 0.017 ng/mL (0.000-0.055) Glucose (Fingerstick) 87 mg/dL (70-99) 64 mg/dL (70-99) Medications Current Medications Nitroglycerin (Nitrostat) 0.4 mg PRN Q5MIN PRN SL CHEST PAIN Last administered on 05/10/17 22:39; Start 05/10/17 at 17:15 Multi-Ingredient Mouthwash/Gargle (Gi Cocktail Single Dose) 15 ml 1X ONCE SWSW Last administered on 05/10/17 17:20; Start 05/10/17 at 17:30; Stop 05/10/17 at 17:31; Status DC Furosemide (Lasix) 20 mg 1X ONCE IVP Last administered on 05/10/17 18:21; Start 05/10/17 at 18:30; Stop 05/10/17 at 18:31; Status DC Morphine Sulfate 2 mg PRN Q2HR PRN IV PAIN Last administered on 05/11/17 03:04 ; Start 05/10/17 at 18:15; Stop 05/11/17 at 18:14 Acetaminophen (Tylenol) 650 mg PRN Q4HRS PRN PO FEVER; Start 05/10/17 at 18:15 ; Stop 05/11/17 at 18:14 Nitroglycerin (Nitrostat) 0.4 mg PRN Q5MIN PRN SL CHEST PAIN; Start 05/10/17 at 18:15; Stop 05/10/17 at 18:16; Status DC Ondansetron HCl (Zofran) 4 mg PRN Q6HRS PRN IV NAUSEA/VOMITING Last administered on 05/11/17 03:03; Start 05/10/17 at 19:00 Ondansetron HCl (Zofran Odt) 4 mg PRN Q6HRS PRN PO NAUSEA/VOMITING; Start 05/10 at 19:00 Aspirin (Children'S Aspirin) 81 mg DAILY PO Last administered on 05/11/17 12: 17; Start 05/11/17 at 09:00 Atorvastatin Calcium (Lipitor) 40 mg QHS PO Last administered on 05/10/17 22: 11; Start 05/10/17 at 21:00 Bisacodyl (Dulcolax Supp) 10 mg PRN DAILY PRN RC CONSTIPATION; Start 05/10/17 at 19:00 Budesonide (Pulmicort) 0.5 mg RTBID NEB Last administered on 05/11/17 07:48; Start 05/10/17 at 20:00 Carvedilol (Coreg) 6.25 mg BIDWMEALS PO Last administered on 05/11/17 12:26; Start 05/10/17 at 21:00 Colchicine (Colcrys) 0.6 mg PRN DAILY PRN PO gout; Start 05/10/17 at 19:00 Diclofenac Sodium (Voltaren) 2 amy BID TP ; Start 05/10/17 at 21:00 Dicyclomine HCl (Bentyl) 10 mg TID PO Last administered on 05/11/17 12:17; Start 05/10/17 at 21:00 Famotidine (Pepcid) 20 mg DAILY PO Last administered on 05/11/17 12:17; Start 05/11/17 at 09:00 Furosemide (Lasix) 40 mg DAILY PO ; Start 05/11/17 at 09:00; Stop 05/11/17 at 11 :37; Status DC Acetaminophen/ Hydrocodone Bitart (Lortab 5/325) 1 tab PRN Q6HRS PRN PO PAIN; Start 05/10/17 at 19:00 Albuterol/ Ipratropium (Duoneb) 3 ml BID NEB ; Start 05/10/17 at 21:00; Stop at 04:33; Status DC Lidocaine (Lidoderm) 1 patch DAILY TP ; Start 05/11/17 at 09:00 Magnesium Hydroxide (Milk Of Magnesia) 400 mg DAILY PO ; Start 05/11/17 at 09:00 Mupirocin (Bactroban) 1 amy TID NS ; Start 05/10/17 at 21:00; Stop 05/10/17 at 21:00; Status DC Nitroglycerin (Nitrostat) 0.4 mg PRN Q5MIN PRN SL CHEST PAIN; Start 05/10/17 at 19:00; Status Cancel Polyethylene Glycol (miraLAX PACKET) 17 gm DAILY PO ; Start 05/11/17 at 09:00 Ticagrelor (Brilinta) 90 mg BID PO Last administered on 05/11/17 12:17; Start 05/10/17 at 21:00 Non-Formulary Medication 1 tab DAILY PO ; Start 05/11/17 at 09:00; Stop at 09:00; Status DC Tizanidine HCl (Zanaflex) 2 mg PRN Q8HRS PRN PO MUSCLE SPASMS; Start 05/10/17 at 19:30 Insulin Detemir (Levemir) 30 units QHS SQ Last administered on 05/10/17 22:28 ; Start 05/10/17 at 21:00 Insulin Aspart (NovoLOG) 0-9 UNITS TIDWMEALS SQ ; Start 05/11/17 at 08:00 Dextrose (Dextrose 50%-Water Syringe) 12.5 gm PRN Q15MIN PRN IV SEE COMMENTS; Start 05/10/17 at 19:00 Mupirocin (Bactroban) 1 amy TID TP ; Start 05/10/17 at 21:00; Stop 05/10/17 at 21:05; Status DC Multi-Ingredient Mouthwash/Gargle (Gi Cocktail Single Dose) 15 ml 1X ONCE SWSW Last administered on 05/11/17 04:36; Start 05/11/17 at 05:00; Stop 05/11/17 at 05:01; Status DC Al Hydroxide/Mg Hydroxide (Mylanta Plus Xs) 30 ml TID PRN PRN PO HEARTBURN / GAS; Start 05/11/17 at 04:30 Albuterol/ Ipratropium (Duoneb) 3 ml RTBID NEB Last administered on 05/11/17 07:48; Start 05/11/17 at 08:00 Furosemide (Lasix) 80 mg BID66 PO Last administered on 05/11/17 12:18; Start 05/11/17 at 12:00 Active Scripts Active [employer] 5-325 Tablet (Acetaminophen/Hydrocodone Bitart) 1 Each Tablet 1 Tab PO PRN Q6HRS PRN Colcrys (Colchicine) 0.6 Mg Tablet 0.6 Mg PO EVERY HOUR PRN Take 1 pill every hour by mouth as needed for an acute gout attack up to 5 doses. Stop if you have nausea or stomach irritation. Brilinta (Ticagrelor) 90 Mg Tablet 90 Mg PO BID Duoneb 0.5-3(2.5) Mg/3 Ml (Albuterol/Ipratropium) 3 Ml Ampul.neb 3 Ml NEB BID Atorvastatin Calcium 40 Mg Tablet 40 Mg PO QHS Reported Glipizide 10 Mg Tablet 1 Tab PO BID Furosemide 80 Mg Tablet 1 Tab PO BID Omeprazole 40 Mg Capsule.dr 1 Cap PO DAILY Benzonatate 100 Mg Capsule 100 Mg PO PRN TID Gabapentin 300 Mg Capsule 300 PO DAILY Tizanidine Hcl 2 Mg Capsule 2 Mg PO QID PRN NITROGLYCERIN SubLingual (Nitroglycerin) 0.4 Mg Tab.subl 0.4 Mg SL PRN Q5MIN PRN Carvedilol 6.25 Mg Tablet 1 Tab PO BID Voltaren (Diclofenac Sodium) 100 Gm Gel..gram. 2 Gm TP BID PRN Lantus (Insulin Glargine,Hum.rec.anlog) 100 Unit/1 Ml Vial 30 Unit SQ Mupirocin Ointment (Mupirocin) 22 Gm Oint...g. 1 Amy TP TID PRN Lidoderm (Lidocaine) 700 Mg Adh..patch 1 Patch TP DAILY Aspirin 81 Mg Tab.chew 1 Tab PO DAILY Dicyclomine Hcl 10 Mg Capsule 1 Cap PO TID Miralax (Polyethylene Glycol 3350) 17 Gm Powd.pack 1 Packet PO DAILY PRN Vitals/I & O Vital Sign - Last 24 Hours 05/10/17 05/10/17 05/10/17 05/10/17 16:57 17:21 17:52 18:24 Temp 98.1 98.1 Pulse 77 73 68 68 Resp 20 18 16 B/P (MAP) 129/67 (87) 126/60 125/58 (80) 137/81 (99) Pulse Ox 97 98 98 O2 Delivery Room Air Room Air Room Air 05/10/17 05/10/17 05/10/17 05/10/17 19:30 19:30 19:30 19:46 Temp 97.7 97.7 97.7 97.7 Pulse 74 74 Resp 20 20 B/P (MAP) 127/62 (83) 127/62 (83) Pulse Ox 98 98 100 O2 Delivery Room Air Room Air Room Air Room Air 05/10/17 05/10/17 05/10/17 05/11/17 22:12 22:39 22:39 03:04 Temp 97.2 97.2 Pulse 74 75 76 Resp 16 16 B/P (MAP) 127/62 124/82 124/82 (96) Pulse Ox 95 96 O2 Delivery Room Air Room Air 05/11/17 05/11/17 05/11/17 05/11/17 03:10 03:35 07:00 07:48 Temp 98.2 97.6 98.2 97.6 Pulse 68 69 Resp 16 16 18 B/P (MAP) 104/56 (72) 119/62 (81) Pulse Ox 97 96 97 95 O2 Delivery Room Air Room Air Room Air Room Air 05/11/17 05/11/17 11:00 12:26 Temp 97.6 97.6 Pulse 66 Resp 18 B/P (MAP) 109/60 (76) 109/60 Pulse Ox 96 O2 Delivery Room Air Intake and Output 05/11/17 05/11/17 05/12/17 15:00 23:00 07:00 Intake Total 250 ml Balance 250 ml TAMI DING MD May 11, 2017 13:41
[2017-05-11] MEDS ORDERED: ONDANSETRON PF 4 MG/2 ML VIAL. IV PRN (13:45)
[2017-05-11] MEDS ORDERED: hydrALAZINE 20 MG/ML VIAL. IVP PRN (13:45)
[2017-05-11] MEDS ORDERED: ACETAMINOPHEN 325 MG TABLET. PO PRN (13:45)
[2017-05-11] MEDS ORDERED: DOCUSATE SODIUM 100 MG CAPSULE. PO PRN (13:45)
[2017-05-11] MEDS: ATORVASTATIN CALCIUM 40 MG TABLET. PO SCH (21:22)
[2017-05-11] MEDS: INSULIN DETEMIR 300 UNITS/3 ML INSULN.PEN. SQ SCH (21:32)
[2017-05-12] VITALS (14 sets, daily range): BP systolic 97–128; BP diastolic 29–80
[2017-05-12] MEDS: FUROSEMIDE 40 MG TABLET. PO SCH ×2 (05:55→18:10)
[2017-05-12 06:16] LABS: CALCIUM 9.4 mg/dL (8.5-10.1); CREATININE 1.3 mg/dL (0.6-1.0); GFR 47.5; POTASSIUM 3.5 mmol/L (3.5-5.1)
[2017-05-12 06:26] LABS: CHOLESTEROL/HDL RATIO 3.6
[2017-05-12] MEDS ORDERED: HEPARIN for ARTERIAL LINE 1,500 ML ONE (07:14)
[2017-05-12] MEDS ORDERED: IODIXANOL 320 MG/ML 100 ML VIAL. ONE (07:15)
[2017-05-12] MEDS ORDERED: LIDOCAINE 2% 20 ML VIAL. ONE (07:15)
[2017-05-12] MEDS: CARVEDILOL 6.25 MG TABLET. PO SCH ×2 (08:00→18:09)
[2017-05-12] MEDS: IPRATRPIUM/ALBUTEROL 0.5/2.5MG 3 ML NEBU. NEB SCH ×2 (08:00→19:23)
[2017-05-12] MEDS: BUDESONIDE 0.5 MG/2 ML NEBU. NEB SCH ×2 (08:00→19:23)
[2017-05-12] MEDS: INSULIN ASPART 300 UNITS/3 ML INSULN.PEN SQ SCH ×3 (08:00→17:00)
[2017-05-12] MEDS ORDERED: MORPHINE SULFATE 4 MG/ML DISP.SYRIN. IV PRN (08:30)
[2017-05-12] MEDS: MAGNESIUM HYDROXIDE 2,400 MG/30 ML ORAL.SUSP. PO SCH (09:00)
[2017-05-12] MEDS: LIDOCAINE (700MG/PATCH) PATCH. TP SCH (09:00)
[2017-05-12] MEDS: DICLOFENAC SODIUM 1% TOPICAL GEL 100GM TUBE. TP SCH ×2 (09:00→20:54)
[2017-05-12] MEDS: POLYETHYLENE GLYCOL 3350 17 GM PACKET. PO SCH (09:00)
[2017-05-12] MEDS ORDERED: MIDAZOLAM HCL/PF 5 MG/5 ML VIAL. ONE (09:15)
[2017-05-12] MEDS ORDERED: VERAPAMIL 5 MG/2 ML VIAL. ONE (09:15)
[2017-05-12] MEDS ORDERED: fentaNYL PF VIAL 100 MCG/2 ML VIAL ONE (09:15)
[2017-05-12] MEDS ORDERED: HEPARIN for IV BOLUS 10,000 UNIT/10 ML VIAL. ONE (09:15)
[2017-05-12] MEDS ORDERED: NITROGLYCERIN 200 MCG/2 ML SYRINGE FOR CATH/VASC LAB. ONE (09:17)
--- NOTE | 2017-05-12 09:26 | PDOC ---
MODERATE SEDATION ASSESSMENT RISKS/ALTERNATIVES Risks/Alternatives Risks and alternatives of this type of sedation and procedure discussed with: RISK/ALTERNATIVES: Patient H & P ON CHART H & P H & P on chart and reviewed for co-morbid conditions and appropriate labs. H&P ON CHART: Yes STATUS PREG STATUS ASSESSED: N/A MEDS/ALLERGIES REVIEWED Meds/Allergies Reviewed Medications and Allergies including time and route of recently administered narcotics and sedatives. MEDS/ALLERGIES REVIEWED: Yes ASA RATING ASA RATING: II AIRWAY ASSESSMENT Airway Assessment Airway patency, oral function limitations, presence of caps, crowns, dentures, partials, and ability to extend neck assessed. AIRWAY ASSESSMENT: Yes MALLAMPATI SCORE MALLAMPATI SCORE: II PRE-SEDATION ASSESSMENT PRE-SEDATION ASSESSMENT: Yes SRUTHI COWAN MD May 12, 2017 09:26
[2017-05-12] MEDS ORDERED: IODIXANOL 320 MG/ML 100 ML VIAL. IART ONE (09:45)
[2017-05-12] MEDS ORDERED: HEPARIN for IV BOLUS 10,000 UNIT/10 ML VIAL. IART ONE (09:45)
[2017-05-12] MEDS ORDERED: fentaNYL PF VIAL 100 MCG/2 ML VIAL IV ONE (09:45)
[2017-05-12] MEDS ORDERED: LIDOCAINE 2% 20 ML VIAL. IJ ONE (09:45)
[2017-05-12] MEDS ORDERED: VERAPAMIL 5 MG/2 ML VIAL. IART ONE (09:45)
[2017-05-12] MEDS ORDERED: MIDAZOLAM HCL/PF 5 MG/5 ML VIAL. IV ONE (09:45)
[2017-05-12] MEDS ORDERED: NITROGLYCERIN 200 MCG/2 ML SYRINGE FOR CATH/VASC LAB. IART ONE (09:45)
[2017-05-12] MEDS ORDERED: CONTRAST GIVEN MC PRN (10:00)
--- NOTE | 2017-05-12 10:25 | CARD ---
APPROVED REPORT Procedure(s) performed: CORONARY ANGIOS, LV W/ INJECTION MODERATE SEDATION: 24 MINUTES HISTORY The patient is a 82 year-old female with a history of : previous MA, previous CHF. INDICATION The indication(s) include : positive stress test, unstable angina . PROCEDURE NARRATIVE The patient was brought electively to the cardiac catheterization lab. A timeout was performed confi rming the patient's name, date of , procedure, and site of procedure. All necessary personnel w ere wearing the appropriate protective equipment and radiation monitor devices. After explaining the risks and benefits of the procedure and alternatives, informed consent was obtained. (See nursing no felix for medications administered). The right wrist was sterilely prepped and draped in the usual fas hion. The right wrist was infiltrated with 1 mL of 2% lidocaine for subcutaneous anesthesia. A 6 Fr ench Terumo glide sheath was inserted into the right radial artery without difficulty. Right and lef t coronary angiography was performed using a 6Fr JR4 and TIG catheter. Left ventricular end diastoli c pressure was obtained with a TIG catheter and pullback was performed after left ventriculography. All catheter exchanges and advancements were performed over a guidewire. At case completion the righ t radial sheath was removed and a Terumo radial band was applied with 13 ml of air. The patient tole rated the procedure well and there were no immediate complications. HEMODYNAMICS: LVEDP 5 mm Hg No gradient on LV to aortic pullback. LEFT VENTRICULOGRAM: Deferred due to renal insufficiency. CORONARY ANGIOGRAPHY: LM is a large caliber vessel with normal angiographic appearance. LAD is a large caliber vessel with mild luminal irregularities, a mid stent with 20% diffuse ISR and a small caliber distal vessel. D1/D2 are small caliber vessels with mild luminal irregularities. LCx is a moderate caliber non-dominant vessel with an ostial to proximal 50% stenosis (unchanged from prior angiogram). OM1 is a small to moderate caliber vessel with mild luminal irregularities. RCA is a moderate caliber dominant vessel with a patent ostial/proximal stent, a patent mid stent and mild diffuse irregularities of the distal vessel of up to 20%. RPDA and RPL are small caliber vessels with normal angiographic appearance. Conclusion 1. Normal LVEDP 2. Three vessel coronary artery disease with patent stents in the LAD/RCA, overall disease burden and lesion appearance unchanged from prior angiogram. Recommendations Aggressive Medical Therapy
--- NOTE | 2017-05-12 10:50 | PDOC ---
PROGRESS NOTES Chief Complaint Chief Complaint 1. CP s/ clean CARDIAC cATH ; MSK likely costochondritis 2. CHF hx, mild CHF on admit, unknown type - get records from Dr Sloan's office 3. Obesity BMI 35.5 4. HTN, DM, dyslipidemia - chronic stable 5,. Hx CAD with 4 indwelling stents - resume home meds including Brilinta 6. CKD, creat 1.3 better (was 1.9 on admit) History of Present Illness History of Present Illness Just had LHC thru Rt wrist Looks good VS good Creat even better 1.3 - on NS 60cc.hr Renal following Pt mentions about a pacer being planned to check? Has not worked with PT yet PLAn: PT/OT Await cards rounds [employer] [facility] lisa CREat stable even better Vitals Vitals Vital Signs Date Time Temp Pulse Resp B/P (MAP) Pulse Ox O2 Delivery O2 Flow Rate FiO2 05/12/17 09:56 65 05/12/17 09:55 14 95 Room Air 05/12/17 07:00 97.5 109/56 (73) 97.5 Physical Exam Physical Exam middle chest wall tenderness General: Alert, Oriented X3, Cooperative, No acute distress Heart: Regular rate, Normal S1, Normal S2 Lungs: Clear, Crackles Abdomen: Normal bowel sounds, Soft, No tenderness Extremities: No clubbing, No cyanosis, No edema, Normal pulses Skin: No breakdown, No significant lesion Labs LABS Laboratory Tests Test 05/11/17 11:32 05/11/17 16:26 05/11/17 21:21 05/12/17 05:45 Glucose (Fingerstick) 64 mg/dL (70-99) 151 mg/dL (70-99) 187 mg/dL (70-99) Sodium Level 142 mmol/L (136-145) Potassium Level 3.5 mmol/L (3.5-5.1) Chloride Level 105 mmol/L (98-107) Carbon Dioxide Level 32 mmol/L (21-32) Anion Gap 5 (6-14) Blood Urea Nitrogen 22 mg/dL (7-20) Creatinine 1.3 mg/dL (0.6-1.0) Estimated GFR (Cockcroft-Gault) 47.5 Glucose Level 98 mg/dL (70-99) Calcium Level 9.4 mg/dL (8.5-10.1) Triglycerides Level 102 mg/dL (0-150) Cholesterol Level 153 mg/dL (0-200) LDL Cholesterol, Calculated 91 mg/dL (0-100) VLDL Cholesterol, Calculated 20 mg/dL (0-40) Non-HDL Cholesterol Calculated 111 mg/dL (0-129) HDL Cholesterol 42 mg/dL (40-60) Cholesterol/HDL Ratio 3.6 Test 05/12/17 08:09 Glucose (Fingerstick) 81 mg/dL (70-99) Review of Systems Review of Systems denies 14 pt reviewed Assessment and Plan Assessmemt and Plan Problems Medical Problems: (1) Unstable angina Status: Acute Problems: Comment Review of Relevant I have reviewed the following items mina (where applicable) has been applied. Labs Laboratory Tests Test 05/10/17 17:00 05/10/17 17:17 05/10/17 20:15 05/11/17 00:20 Urine Collection Type Unknown Urine Color Yellow Urine Clarity Clear Urine pH 5.5 Urine Specific [place] >=1.030 Urine Protein Negative mg/dL (NEG-TRACE) Urine Glucose (UA) Negative mg/dL (NEG) Urine Ketones (Stick) Negative mg/dL (NEG) Urine Blood Negative (NEG) Urine Nitrite Negative (NEG) Urine Bilirubin Negative (NEG) Urine Urobilinogen Dipstick 0.2 mg/dL (0.2 mg/dL) Urine Leukocyte Esterase Negative (NEG) Urine RBC Occ /HPF (0-2) Urine WBC Occ /HPF (0-4) Urine Squamous Epithelial Cells Mod /LPF Urine Bacteria Few /HPF (0-FEW) Urine Hyaline Casts Many /HPF Urine Mucus Slight /LPF White Blood Count 6.1 x10^3/uL (4.0-11.0) Red Blood Count 3.60 x10^6/uL (3.50-5.40) Hemoglobin 11.1 g/dL (12.0-15.5) Hematocrit 33.4 % (36.0-47.0) Mean Corpuscular Volume 93 fL (79-100) Mean Corpuscular Hemoglobin 31 pg (25-35) Mean Corpuscular Hemoglobin Concent 33 g/dL (31-37) Red Cell Distribution Width 13.4 % (11.5-14.5) Platelet Count 173 x10^3/uL (140-400) Neutrophils (%) (Auto) 56 % (31-73) Lymphocytes (%) (Auto) 25 % (24-48) Monocytes (%) (Auto) 13 % (0-9) Eosinophils (%) (Auto) 6 % (0-3) Basophils (%) (Auto) 0 % (0-3) Neutrophils # (Auto) 3.4 x10^3uL (1.8-7.7) Lymphocytes # (Auto) 1.5 x10^3/uL (1.0-4.8) Monocytes # (Auto) 0.8 x10^3/uL (0.0-1.1) Eosinophils # (Auto) 0.3 x10^3/uL (0.0-0.7) Basophils # (Auto) 0.0 x10^3/uL (0.0-0.2) Prothrombin Time 13.0 SEC (11.7-14.0) Prothromb Time International Ratio 1.0 (0.8-1.1) Sodium Level 141 mmol/L (136-145) Potassium Level 4.0 mmol/L (3.5-5.1) Chloride Level 106 mmol/L (98-107) Carbon Dioxide Level 28 mmol/L (21-32) Anion Gap 7 (6-14) Blood Urea Nitrogen 23 mg/dL (7-20) Creatinine 1.4 mg/dL (0.6-1.0) Estimated GFR (Cockcroft-Gault) 43.6 BUN/Creatinine Ratio 16 (6-20) Glucose Level 171 mg/dL (70-99) Calcium Level 8.8 mg/dL (8.5-10.1) Magnesium Level 2.1 mg/dL (1.8-2.4) Total Bilirubin 0.3 mg/dL (0.2-1.0) Aspartate Amino Transf (AST/SGOT) 25 U/L (15-37) Alanine Aminotransferase (ALT/SGPT) 25 U/L (14-59) Alkaline Phosphatase 125 U/L (46-116) Troponin I Quantitative < 0.017 ng/mL (0.000-0.055) < 0.017 ng/mL (0.000-0.055) IP-Ifd-F-Type Natriuretic Peptide 2033 pg/mL (0-449) Total Protein 7.6 g/dL (6.4-8.2) Albumin 3.3 g/dL (3.4-5.0) Albumin/Globulin Ratio 0.8 (1.0-1.7) Glucose (Fingerstick) 108 mg/dL (70-99) Test 05/11/17 06:00 05/11/17 08:12 05/11/17 11:32 05/11/17 16:26 Troponin I Quantitative < 0.017 ng/mL (0.000-0.055) Glucose (Fingerstick) 87 mg/dL (70-99) 64 mg/dL (70-99) 151 mg/dL (70-99) Test 05/11/17 21:21 05/12/17 05:45 05/12/17 08:09 Glucose (Fingerstick) 187 mg/dL (70-99) 81 mg/dL (70-99) Sodium Level 142 mmol/L (136-145) Potassium Level 3.5 mmol/L (3.5-5.1) Chloride Level 105 mmol/L (98-107) Carbon Dioxide Level 32 mmol/L (21-32) Anion Gap 5 (6-14) Blood Urea Nitrogen 22 mg/dL (7-20) Creatinine 1.3 mg/dL (0.6-1.0) Estimated GFR (Cockcroft-Gault) 47.5 Glucose Level 98 mg/dL (70-99) Calcium Level 9.4 mg/dL (8.5-10.1) Triglycerides Level 102 mg/dL (0-150) Cholesterol Level 153 mg/dL (0-200) LDL Cholesterol, Calculated 91 mg/dL (0-100) VLDL Cholesterol, Calculated 20 mg/dL (0-40) Non-HDL Cholesterol Calculated 111 mg/dL (0-129) HDL Cholesterol 42 mg/dL (40-60) Cholesterol/HDL Ratio 3.6 Laboratory Tests Test 05/11/17 11:32 05/11/17 16:26 05/11/17 21:21 05/12/17 05:45 Glucose (Fingerstick) 64 mg/dL (70-99) 151 mg/dL (70-99) 187 mg/dL (70-99) Sodium Level 142 mmol/L (136-145) Potassium Level 3.5 mmol/L (3.5-5.1) Chloride Level 105 mmol/L (98-107) Carbon Dioxide Level 32 mmol/L (21-32) Anion Gap 5 (6-14) Blood Urea Nitrogen 22 mg/dL (7-20) Creatinine 1.3 mg/dL (0.6-1.0) Estimated GFR (Cockcroft-Gault) 47.5 Glucose Level 98 mg/dL (70-99) Calcium Level 9.4 mg/dL (8.5-10.1) Triglycerides Level 102 mg/dL (0-150) Cholesterol Level 153 mg/dL (0-200) LDL Cholesterol, Calculated 91 mg/dL (0-100) VLDL Cholesterol, Calculated 20 mg/dL (0-40) Non-HDL Cholesterol Calculated 111 mg/dL (0-129) HDL Cholesterol 42 mg/dL (40-60) Cholesterol/HDL Ratio 3.6 Test 05/12/17 08:09 Glucose (Fingerstick) 81 mg/dL (70-99) Medications Current Medications Nitroglycerin (Nitrostat) 0.4 mg PRN Q5MIN PRN SL CHEST PAIN Last administered on 05/10/17 22:39; Start 05/10/17 at 17:15 Multi-Ingredient Mouthwash/Gargle (Gi Cocktail Single Dose) 15 ml 1X ONCE SWSW Last administered on 05/10/17 17:20; Start 05/10/17 at 17:30; Stop 05/10/17 at 17:31; Status DC Furosemide (Lasix) 20 mg 1X ONCE IVP Last administered on 05/10/17 18:21; Start 05/10/17 at 18:30; Stop 05/10/17 at 18:31; Status DC Morphine Sulfate 2 mg PRN Q2HR PRN IV PAIN Last administered on 05/11/17 03:04 ; Start 05/10/17 at 18:15; Stop 05/11/17 at 18:14; Status DC Acetaminophen (Tylenol) 650 mg PRN Q4HRS PRN PO FEVER; Start 05/10/17 at 18:15 ; Stop 05/11/17 at 18:14; Status DC Nitroglycerin (Nitrostat) 0.4 mg PRN Q5MIN PRN SL CHEST PAIN; Start 05/10/17 at 18:15; Stop 05/10/17 at 18:16; Status DC Ondansetron HCl (Zofran) 4 mg PRN Q6HRS PRN IV NAUSEA/VOMITING Last administered on 05/11/17 03:03; Start 05/10/17 at 19:00 Ondansetron HCl (Zofran Odt) 4 mg PRN Q6HRS PRN PO NAUSEA/VOMITING; Start 05/10 at 19:00 Aspirin (Children'S Aspirin) 81 mg DAILY PO Last administered on 05/11/17 12: 17; Start 05/11/17 at 09:00 Atorvastatin Calcium (Lipitor) 40 mg QHS PO Last administered on 05/11/17 21: 22; Start 05/10/17 at 21:00 Bisacodyl (Dulcolax Supp) 10 mg PRN DAILY PRN RC CONSTIPATION; Start 05/10/17 at 19:00 Budesonide (Pulmicort) 0.5 mg RTBID NEB Last administered on 05/11/17 07:48; Start 05/10/17 at 20:00 Carvedilol (Coreg) 6.25 mg BIDWMEALS PO Last administered on 05/11/17 17:54; Start 05/10/17 at 21:00 Colchicine (Colcrys) 0.6 mg PRN DAILY PRN PO gout; Start 05/10/17 at 19:00 Diclofenac Sodium (Voltaren) 2 amy BID TP Last administered on 05/11/17 15:38 ; Start 05/10/17 at 21:00 Dicyclomine HCl (Bentyl) 10 mg TID PO Last administered on 05/11/17 21:22; Start 05/10/17 at 21:00 Famotidine (Pepcid) 20 mg DAILY PO Last administered on 05/11/17 12:17; Start 05/11/17 at 09:00 Furosemide (Lasix) 40 mg DAILY PO ; Start 05/11/17 at 09:00; Stop 05/11/17 at 11 :37; Status DC Acetaminophen/ Hydrocodone Bitart (Lortab 5/325) 1 tab PRN Q6HRS PRN PO PAIN; Start 05/10/17 at 19:00 Albuterol/ Ipratropium (Duoneb) 3 ml BID NEB ; Start 05/10/17 at 21:00; Stop at 04:33; Status DC Lidocaine (Lidoderm) 1 patch DAILY TP ; Start 05/11/17 at 09:00 Magnesium Hydroxide (Milk Of Magnesia) 400 mg DAILY PO ; Start 05/11/17 at 09:00 Mupirocin (Bactroban) 1 amy TID NS ; Start 05/10/17 at 21:00; Stop 05/10/17 at 21:00; Status DC Nitroglycerin (Nitrostat) 0.4 mg PRN Q5MIN PRN SL CHEST PAIN; Start 05/10/17 at 19:00; Status Cancel Polyethylene Glycol (miraLAX PACKET) 17 gm DAILY PO ; Start 05/11/17 at 09:00 Ticagrelor (Brilinta) 90 mg BID PO Last administered on 05/11/17 21:22; Start 05/10/17 at 21:00 Non-Formulary Medication 1 tab DAILY PO ; Start 05/11/17 at 09:00; Stop at 09:00; Status DC Tizanidine HCl (Zanaflex) 2 mg PRN Q8HRS PRN PO MUSCLE SPASMS; Start 05/10/17 at 19:30 Insulin Detemir (Levemir) 30 units QHS SQ Last administered on 05/10/17 22:28 ; Start 05/10/17 at 21:00; Stop 05/11/17 at 13:38; Status DC Insulin Aspart (NovoLOG) 0-9 UNITS TIDWMEALS SQ Last administered on 05/11/17 18:00; Start 05/11/17 at 08:00 Dextrose (Dextrose 50%-Water Syringe) 12.5 gm PRN Q15MIN PRN IV SEE COMMENTS; Start 05/10/17 at 19:00 Mupirocin (Bactroban) 1 amy TID TP ; Start 05/10/17 at 21:00; Stop 05/10/17 at 21:05; Status DC Multi-Ingredient Mouthwash/Gargle (Gi Cocktail Single Dose) 15 ml 1X ONCE SWSW Last administered on 05/11/17 04:36; Start 05/11/17 at 05:00; Stop 05/11/17 at 05:01; Status DC Al Hydroxide/Mg Hydroxide (Mylanta Plus Xs) 30 ml TID PRN PRN PO HEARTBURN / GAS; Start 05/11/17 at 04:30 Albuterol/ Ipratropium (Duoneb) 3 ml RTBID NEB Last administered on 05/11/17 07:48; Start 05/11/17 at 08:00 Furosemide (Lasix) 80 mg BID66 PO Last administered on 05/11/17 17:54; Start 05/11/17 at 12:00 Insulin Detemir (Levemir) 25 units QHS SQ Last administered on 05/11/17 21:32 ; Start 05/11/17 at 21:00 Acetaminophen (Tylenol) 650 mg PRN Q6HRS PRN PO FEVER; Start 05/11/17 at 13:45 Ondansetron HCl (Zofran) 4 mg PRN Q6HRS PRN IV NAUSEA/VOMITING; Start 05/11/17 at 13:45 Hydralazine HCl (Apresoline) 10 mg PRN Q4HRS PRN IVP ELEVATED BP, SEE COMMENTS ; Start 05/11/17 at 13:45 Docusate Sodium (Colace) 100 mg PRN DAILY PRN PO CONSTIPATION; Start 05/11/17 at 13:45 Heparin Sodium/ Sodium Chloride 1,500 ml @ As Directed STK-MED ONCE .ROUTE ; Start 05/12/17 at 07:14; Stop 05/12/17 at 07:15; Status DC Iodixanol (Visipaque 320) 100 ml STK-MED ONCE .ROUTE ; Start 05/12/17 at 07:15; Stop 05/12/17 at 07:16; Status DC Lidocaine HCl 20 ml STK-MED ONCE .ROUTE ; Start 05/12/17 at 07:15; Stop at 07:16; Status DC Morphine Sulfate 2 mg PRN Q2HR PRN IV PAIN Last administered on 05/12/17 08:25 ; Start 05/12/17 at 08:30 Fentanyl Citrate (Fentanyl 2ml Vial) 100 mcg STK-MED ONCE .ROUTE ; Start at 09:15; Stop 05/12/17 at 09:16; Status DC Midazolam HCl (Versed) 5 mg STK-MED ONCE .ROUTE ; Start 05/12/17 at 09:15; Stop 05/12/17 at 09:16; Status DC Verapamil HCl (Verapamil) 5 mg STK-MED ONCE .ROUTE ; Start 05/12/17 at 09:15; Stop 05/12/17 at 09:16; Status DC Heparin Sodium (Porcine) (Heparin Sodium) 10,000 unit STK-MED ONCE .ROUTE ; Start 05/12/17 at 09:15; Stop 05/12/17 at 09:16; Status DC Nitroglycerin (Nitroglycerin) 200 mcg STK-MED ONCE .ROUTE ; Start 05/12/17 at 09 :17; Stop 05/12/17 at 09:18; Status DC Nitroglycerin (Nitroglycerin) 200 mcg 1X ONCE IART Last administered on 09:57; Start 05/12/17 at 09:45; Stop 05/12/17 at 09:47; Status DC Verapamil HCl (Verapamil) 2.5 mg 1X ONCE IART Last administered on 05/12/17 09:56; Start 05/12/17 at 09:45; Stop 05/12/17 at 09:47; Status DC Heparin Sodium (Porcine) (Heparin Sodium) 2,500 unit 1X ONCE IART Last administered on 05/12/17 09:57; Start 05/12/17 at 09:45; Stop 05/12/17 at 09:47 ; Status DC Heparin Sodium/ Sodium Chloride 1,000 unit 1X ONCE IART Last administered on 05/12/17 09:55; Start 05/12/17 at 09:45; Stop 05/12/17 at 09:47; Status DC Midazolam HCl (Versed) 5 mg 1X ONCE IV Last administered on 05/12/17 09:56; Start 05/12/17 at 09:45; Stop 05/12/17 at 09:47; Status DC Fentanyl Citrate (Fentanyl 2ml Vial) 100 mcg 1X ONCE IV Last administered on 05/12/17 09:55; Start 05/12/17 at 09:45; Stop 05/12/17 at 09:47; Status DC Iodixanol (Visipaque 320) 100 ml 1X ONCE IART Last administered on 05/12/17 09:53; Start 05/12/17 at 09:45; Stop 05/12/17 at 09:47; Status DC Lidocaine HCl 20 ml 1X ONCE IJ Last administered on 05/12/17 09:54; Start at 09:45; Stop 05/12/17 at 09:47; Status DC Info (Do NOT chart on this entry -- for MONITORING) 1 each PRN DAILY PRN MC SEE COMMENTS; Start 05/12/17 at 10:00; Stop 05/14/17 at 09:59 Active Scripts Active [place] 5-325 Tablet (Acetaminophen/Hydrocodone Bitart) 1 Each Tablet 1 Tab PO PRN Q6HRS PRN Colcrys (Colchicine) 0.6 Mg Tablet 0.6 Mg PO EVERY HOUR PRN Take 1 pill every hour by mouth as needed for an acute gout attack up to 5 doses. Stop if you have nausea or stomach irritation. Brilinta (Ticagrelor) 90 Mg Tablet 90 Mg PO BID Duoneb 0.5-3(2.5) Mg/3 Ml (Albuterol/Ipratropium) 3 Ml Ampul.neb 3 Ml NEB BID Atorvastatin Calcium 40 Mg Tablet 40 Mg PO QHS Reported Glipizide 10 Mg Tablet 0.5 Tab PO BID Furosemide 80 Mg Tablet 1 Tab PO BID Omeprazole 40 Mg Capsule.dr 1 Cap PO DAILY Benzonatate 100 Mg Capsule 100 Mg PO PRN TID Gabapentin 300 Mg Capsule 300 PO DAILY Tizanidine Hcl 2 Mg Capsule 2 Mg PO QID PRN NITROGLYCERIN SubLingual (Nitroglycerin) 0.4 Mg Tab.subl 0.4 Mg SL PRN Q5MIN PRN Carvedilol 6.25 Mg Tablet 1 Tab PO BID Voltaren (Diclofenac Sodium) 100 Gm Gel..gram. 2 Gm TP BID PRN Lantus (Insulin Glargine,Hum.rec.anlog) 100 Unit/1 Ml Vial 30 Unit SQ Mupirocin Ointment (Mupirocin) 22 Gm Oint...g. 1 Amy TP TID PRN Aspirin 81 Mg Tab.chew 1 Tab PO DAILY Dicyclomine Hcl 10 Mg Capsule 1 Cap PO TID Miralax (Polyethylene Glycol 3350) 17 Gm Powd.pack 1 Packet PO DAILY PRN Vitals/I & O Vital Sign - Last 24 Hours 05/11/17 05/11/17 05/11/17 05/11/17 11:00 12:26 15:00 17:54 Temp 97.6 97.7 97.6 97.7 Pulse 66 72 Resp 18 18 B/P (MAP) 109/60 (76) 109/60 110/89 (96) 110/89 Pulse Ox 96 97 O2 Delivery Room Air Room Air 05/11/17 05/11/17 05/11/17 05/11/17 19:40 19:45 22:42 23:30 Temp 97.9 98.7 98.3 97.9 98.7 98.3 Pulse 72 73 71 Resp 18 19 16 B/P (MAP) 100/28 (52) 117/43 (67) 118/50 (72) Pulse Ox 96 98 97 O2 Delivery Room Air Room Air Room Air Room Air 05/12/17 05/12/17 05/12/17 05/12/17 03:35 07:00 08:25 08:45 Temp 98.8 97.5 98.8 97.5 Pulse 70 67 Resp 21 19 B/P (MAP) 128/53 (78) 109/56 (73) Pulse Ox 97 96 97 97 O2 Delivery Room Air Room Air Room Air Room Air 05/12/17 05/12/17 05/12/17 09:51 09:55 09:56 Pulse 66 65 Resp 14 14 Pulse Ox 95 95 O2 Delivery Room Air Room Air IDALIA ABERNATHY MD May 12, 2017 10:50
--- NOTE | 2017-05-12 11:46 | PDOC ---
Renal-Progress Notes Subjective Notes Notes NO COMPLAINTS History of Present Illness Hx of present illness STABLE Vitals Vitals Vital Signs Date Time Temp Pulse Resp B/P (MAP) Pulse Ox O2 Delivery O2 Flow Rate FiO2 05/12/17 11:17 97.9 65 18 116/53 (74) 97 Room Air 97.9 Weight Weight [ ] Labs Labs Laboratory Tests Test 05/11/17 16:26 05/11/17 21:21 05/12/17 05:45 05/12/17 08:09 Glucose (Fingerstick) 151 mg/dL (70-99) 187 mg/dL (70-99) 81 mg/dL (70-99) Sodium Level 142 mmol/L (136-145) Potassium Level 3.5 mmol/L (3.5-5.1) Chloride Level 105 mmol/L (98-107) Carbon Dioxide Level 32 mmol/L (21-32) Anion Gap 5 (6-14) Blood Urea Nitrogen 22 mg/dL (7-20) Creatinine 1.3 mg/dL (0.6-1.0) Estimated GFR (Cockcroft-Gault) 47.5 Glucose Level 98 mg/dL (70-99) Calcium Level 9.4 mg/dL (8.5-10.1) Triglycerides Level 102 mg/dL (0-150) Cholesterol Level 153 mg/dL (0-200) LDL Cholesterol, Calculated 91 mg/dL (0-100) VLDL Cholesterol, Calculated 20 mg/dL (0-40) Non-HDL Cholesterol Calculated 111 mg/dL (0-129) HDL Cholesterol 42 mg/dL (40-60) Cholesterol/HDL Ratio 3.6 Review of Systems Constitutional: yes: weakness, alert, oriented Ears/Nose/Throat: Yes: no symptom reported Eyes: Yes: no symptom reported Pulmonary: Yes dyspnea Cardiovascular: Yes no symptom reported Gastrointestional: Yes: constipation Genitourinary: Yes: no symptom reported Musculoskeletal: Yes: muscle stiffness Skin: Yes no symptom reported Psychiatric/Neurological: Yes: no symptom reported Physical Exam General Appearance: no apparent distress Skin: warm Respiratory: decreased breath sounds Heart: S1S2, RRR Abdomen: soft, bowel sounds present Genitourinary: bladder flat Extremities: pulses present Neurology: alert Musculoskeletal: Osteoarthritis, Other Assessment Assessment IMP NON CARDIAC CHEST PAIN-CATH CLEAN CM WITH EF 35% DM II THN CKD STAGE 3 WITH CR OF 1.3 AND STABLE LOW K PLAN CONT LASIX REPLACE K ALAYNA PRITCHARD MD May 12, 2017 11:46
[2017-05-12] MEDS: TICAGRELOR 90 MG TABLET. PO SCH ×2 (11:54→20:53)
[2017-05-12] MEDS: ASPIRIN CHEWABLE 81 MG TABLET. PO SCH (11:55)
[2017-05-12] MEDS: DICYCLOMINE HCL 10 MG CAPSULE PO SCH ×3 (11:55→20:54)
[2017-05-12] MEDS: FAMOTIDINE 20 MG TABLET. PO SCH (11:55)
[2017-05-12] MEDS ORDERED: POTASSIUM CHLORIDE 20 MEQ TABLET.ER. PO ONE (12:00)
[2017-05-12] MEDS: ATORVASTATIN CALCIUM 40 MG TABLET. PO SCH (20:52)
[2017-05-12] MEDS: INSULIN DETEMIR 300 UNITS/3 ML INSULN.PEN. SQ SCH (21:07)
[2017-05-13 03:40] VITALS: BP 125/63
[2017-05-13 06:11] LABS: CALCIUM 9.1 mg/dL (8.5-10.1); CREATININE 1.5 mg/dL (0.6-1.0); GFR 40.2; POTASSIUM 3.7 mmol/L (3.5-5.1)
[2017-05-13 07:00] VITALS: BP 107/38
[2017-05-13] MEDS: IPRATRPIUM/ALBUTEROL 0.5/2.5MG 3 ML NEBU. NEB SCH (07:40)
[2017-05-13] MEDS: BUDESONIDE 0.5 MG/2 ML NEBU. NEB SCH (07:41)
[2017-05-13] MEDS: INSULIN ASPART 300 UNITS/3 ML INSULN.PEN SQ SCH (08:00)
[2017-05-13] MEDS: LIDOCAINE (700MG/PATCH) PATCH. TP SCH (08:52)
[2017-05-13] MEDS: POLYETHYLENE GLYCOL 3350 17 GM PACKET. PO SCH (08:53)
[2017-05-13] MEDS: MAGNESIUM HYDROXIDE 2,400 MG/30 ML ORAL.SUSP. PO SCH (08:53)
[2017-05-13] MEDS: DICLOFENAC SODIUM 1% TOPICAL GEL 100GM TUBE. TP SCH (08:57)
[2017-05-13] MEDS: FAMOTIDINE 20 MG TABLET. PO SCH (08:58)
[2017-05-13] MEDS: TICAGRELOR 90 MG TABLET. PO SCH (08:58)
[2017-05-13] MEDS: CARVEDILOL 6.25 MG TABLET. PO SCH (08:58)
[2017-05-13] MEDS: DICYCLOMINE HCL 10 MG CAPSULE PO SCH (08:58)
[2017-05-13] MEDS: ASPIRIN CHEWABLE 81 MG TABLET. PO SCH (08:58)
[2017-05-13] MEDS ORDERED: FUROSEMIDE 40 MG TABLET. PO SCH (09:00)
[2017-05-13 11:00] VITALS: BP 106/37
--- NOTE | 2017-05-13 11:38 | PDOC ---
Renal-Progress Notes Subjective Notes Notes FEELS WELL History of Present Illness Hx of present illness STABLE Vitals Vitals Vital Signs Date Time Temp Pulse Resp B/P (MAP) Pulse Ox O2 Delivery O2 Flow Rate FiO2 05/13/17 11:00 97.9 68 18 106/37 (60) 95 Room Air 97.9 Weight Weight [ ] Labs Labs Laboratory Tests Test 05/12/17 11:57 05/12/17 17:02 05/12/17 20:59 05/13/17 05:00 Glucose (Fingerstick) 155 mg/dL (70-99) 114 mg/dL (70-99) 164 mg/dL (70-99) Sodium Level 143 mmol/L (136-145) Potassium Level 3.7 mmol/L (3.5-5.1) Chloride Level 104 mmol/L (98-107) Carbon Dioxide Level 34 mmol/L (21-32) Anion Gap 5 (6-14) Blood Urea Nitrogen 24 mg/dL (7-20) Creatinine 1.5 mg/dL (0.6-1.0) Estimated GFR (Cockcroft-Gault) 40.2 Glucose Level 119 mg/dL (70-99) Calcium Level 9.1 mg/dL (8.5-10.1) Test 05/13/17 07:13 Glucose (Fingerstick) 101 mg/dL (70-99) Review of Systems Constitutional: yes: weakness, alert, oriented Ears/Nose/Throat: Yes: no symptom reported Eyes: Yes: no symptom reported Pulmonary: Yes dyspnea Cardiovascular: Yes no symptom reported Gastrointestional: Yes: constipation Genitourinary: Yes: no symptom reported Musculoskeletal: Yes: muscle stiffness Skin: Yes no symptom reported Psychiatric/Neurological: Yes: no symptom reported Physical Exam General Appearance: no apparent distress Skin: warm Respiratory: decreased breath sounds Heart: S1S2, RRR Abdomen: soft, bowel sounds present Genitourinary: bladder flat Extremities: pulses present Neurology: alert Musculoskeletal: Osteoarthritis, Other Assessment Assessment IMP NON CARDIAC CHEST PAIN-CATH CLEAN CM WITH EF 35% DM II THN CKD STAGE 3 WITH CR OF 1.5 AND STABLE LOW K PLAN CONT LASIX PT TO CALL FOR OP FOLLOW UP AT D/C ALAYNA PRITCHARD MD May 13, 2017 11:38
--- NOTE | 2017-05-13 12:13 | PDOC3 ---
Discharge Summary Visit Information Date of Admission: May 10, 2017 Date of Discharge: May 13, 2017 Admitting Diagnosis Comment: 1. CP s/ clean CARDIAC cATH ; MSK likely costochondritis 2. CHF hx, mild CHF on admit, unknown type - get records from Dr Sloan's office 3. Obesity BMI 35.5 4. HTN, DM, dyslipidemia - chronic stable 5,. Hx CAD with 4 indwelling stents - resume home meds including Brilinta 6. CKD, creat 1.3 better (was 1.9 on admit) Final Diagnosis Problems Medical Problems: (1) Unstable angina Status: Acute Brief Hospital Course Allergies Allergies Coded Allergies Type Severity Reaction Last Updated Verified metformin Allergy Intermediate 02/11/17 Yes tramadol Allergy Intermediate 06/26/16 Yes Vital Signs Vital Signs Date Time Temp Pulse Resp B/P (MAP) Pulse Ox O2 Delivery O2 Flow Rate FiO2 05/13/17 11:00 97.9 68 18 106/37 (60) 95 Room Air 97.9 Lab Results Laboratory Tests Test 05/11/17 16:26 05/11/17 21:21 05/12/17 05:45 05/12/17 08:09 Glucose (Fingerstick) 151 mg/dL (70-99) 187 mg/dL (70-99) 81 mg/dL (70-99) Sodium Level 142 mmol/L (136-145) Potassium Level 3.5 mmol/L (3.5-5.1) Chloride Level 105 mmol/L (98-107) Carbon Dioxide Level 32 mmol/L (21-32) Anion Gap 5 (6-14) Blood Urea Nitrogen 22 mg/dL (7-20) Creatinine 1.3 mg/dL (0.6-1.0) Estimated GFR (Cockcroft-Gault) 47.5 Glucose Level 98 mg/dL (70-99) Calcium Level 9.4 mg/dL (8.5-10.1) Triglycerides Level 102 mg/dL (0-150) Cholesterol Level 153 mg/dL (0-200) LDL Cholesterol, Calculated 91 mg/dL (0-100) VLDL Cholesterol, Calculated 20 mg/dL (0-40) Non-HDL Cholesterol Calculated 111 mg/dL (0-129) HDL Cholesterol 42 mg/dL (40-60) Cholesterol/HDL Ratio 3.6 Test 05/12/17 11:57 05/12/17 17:02 05/12/17 20:59 05/13/17 05:00 Glucose (Fingerstick) 155 mg/dL (70-99) 114 mg/dL (70-99) 164 mg/dL (70-99) Sodium Level 143 mmol/L (136-145) Potassium Level 3.7 mmol/L (3.5-5.1) Chloride Level 104 mmol/L (98-107) Carbon Dioxide Level 34 mmol/L (21-32) Anion Gap 5 (6-14) Blood Urea Nitrogen 24 mg/dL (7-20) Creatinine 1.5 mg/dL (0.6-1.0) Estimated GFR (Cockcroft-Gault) 40.2 Glucose Level 119 mg/dL (70-99) Calcium Level 9.1 mg/dL (8.5-10.1) Test 05/13/17 07:13 Glucose (Fingerstick) 101 mg/dL (70-99) Laboratory Tests Test 05/12/17 17:02 05/12/17 20:59 05/13/17 05:00 05/13/17 07:13 Glucose (Fingerstick) 114 mg/dL (70-99) 164 mg/dL (70-99) 101 mg/dL (70-99) Sodium Level 143 mmol/L (136-145) Potassium Level 3.7 mmol/L (3.5-5.1) Chloride Level 104 mmol/L (98-107) Carbon Dioxide Level 34 mmol/L (21-32) Anion Gap 5 (6-14) Blood Urea Nitrogen 24 mg/dL (7-20) Creatinine 1.5 mg/dL (0.6-1.0) Estimated GFR (Cockcroft-Gault) 40.2 Glucose Level 119 mg/dL (70-99) Calcium Level 9.1 mg/dL (8.5-10.1) Brief Hospital Course Ms. Hodges is a 82 old very pleasant AA female, heavy set, PCP Dr. Ratliff , cp, [facility] was clean, Chronic CKD, STABLE co managed with renal,. NO new m,eds Seen and examined dc < 30 mins Discharge Information Condition at Discharge: Improved, Stable Disposition/Orders: D/C to Home Scheduled Aspirin (Aspirin), 1 TAB PO DAILY, (Reported) Atorvastatin Calcium (Atorvastatin Calcium), 40 MG PO QHS Benzonatate (Benzonatate), 100 MG PO PRN TID, (Reported) Carvedilol (Carvedilol), 1 TAB PO BID, (Reported) Dicyclomine Hcl (Dicyclomine Hcl), 1 CAP PO TID, (Reported) Furosemide (Furosemide), 1 TAB PO BID, (Reported) Gabapentin (Gabapentin), 300 PO DAILY, (Reported) Glipizide (Glipizide), 0.5 TAB PO BID, (Reported) Ipratropium/Albuterol Sulfate (Duoneb 0.5-3(2.5) Mg/3 Ml), 3 ML NEB BID Omeprazole (Omeprazole), 1 CAP PO DAILY, (Reported) Ticagrelor (Brilinta), 90 MG PO BID Scheduled PRN Colchicine (Colcrys), 0.6 MG PO every hour PRN for gout Diclofenac Sodium (Voltaren), 2 GM TP BID PRN for PAIN, (Reported) Hydrocodone/Apap 5-325 (Trevor 5-325 Tablet), 1 TAB PO PRN Q6HRS PRN for PAIN Mupirocin (Mupirocin Ointment), 1 SHREE TP TID PRN for PAIN, (Reported) Nitroglycerin (NITROGLYCERIN SubLingual), 0.4 MG SL PRN Q5MIN PRN for CHEST PAIN , (Reported) Polyethylene Glycol 3350 (Miralax), 1 PACKET PO DAILY PRN for CONSTIPATION, ( Reported) Tizanidine Hcl (Tizanidine Hcl), 2 MG PO QID PRN for MUSCLE SPASMS, (Reported) Miscellaneous Medications Insulin Glargine,Hum.rec.anlog (Lantus), 30 UNIT SQ, (Reported) Discontinued Medications Bisacodyl (Dulcolax), 10 MG RC PRN DAILY PRN for CONSTIPATION, (Reported) Cephalexin (Keflex), 500 MG PO QID, (Reported) Magnesium Hydroxide (Milk Of Magnesia), 400 MG PO, (Reported) IDALIA ABERNATHY MD May 13, 2017 12:13
== END 2017-05-13 13:50 | disposition home or self-care (01) | DRG 286 ==
LOC: ER 16:46 → 2 SOUTH 18:11
PROVIDERS: ADMIT Internal Medicine; ATTEND Internal Medicine
PROC: 4A023N7 Measurement of Cardiac Sampling and Pressure, Left Heart, Percutaneous Approach (ICD-10-PCS; principal; 2017-05-12)
PROC: B2111ZZ Fluoroscopy of Multiple Coronary Arteries using Low Osmolar Contrast (ICD-10-PCS; 2017-05-12)
DX: I13.0 Hypertensive heart and chronic kidney disease with heart failure and stage 1 through stage 4 chronic kidney disease, or unspecified chronic kidney disease (principal); I50.23 Acute on chronic systolic (congestive) heart failure; E11.22 Type 2 diabetes mellitus with diabetic chronic kidney disease; D63.8 Anemia in other chronic diseases classified elsewhere; I50.22 Chronic systolic (congestive) heart failure; R07.89 Other chest pain; I25.5 Ischemic cardiomyopathy; I25.10 Atherosclerotic heart disease of native coronary artery without angina pectoris; N18.3 Chronic kidney disease, stage 3 (moderate); M94.0 Chondrocostal junction syndrome [Tietze]; E03.9 Hypothyroidism, unspecified; E66.9 Obesity, unspecified; E78.5 Hyperlipidemia, unspecified; K21.9 Gastro-esophageal reflux disease without esophagitis; J45.909 Unspecified asthma, uncomplicated; F41.9 Anxiety disorder, unspecified; M19.90 Unspecified osteoarthritis, unspecified site; E87.6 Hypokalemia; I25.2 Old myocardial infarction; Z68.35 Body mass index [BMI] 35.0-35.9, adult; Z95.5 Presence of coronary angioplasty implant and graft; Z90.710 Acquired absence of both cervix and uterus; Z90.49 Acquired absence of other specified parts of digestive tract; Z86.711 Personal history of pulmonary embolism; Z79.82 Long term (current) use of aspirin; Z88.8 Allergy status to other drugs, medicaments and biological substances
CPT/HCPCS: 36415; 71010; 80048; 80053; 80061; 81001; 82962; 83735; 83880; 84484; 85025; 85610; 93005; 93458; 94250; 94640; 94760; 96374; 99152; 99153; C1769; C1892; J1644; J1815; J2250; J2270; J2405; J3010; J3490; J7620; J7626; 97116; 97530; 99285-25; J2001

== ENCOUNTER 2017-08-15 17:28 | Emergency (ER) | payer OTHER ==
[2017-08-15] MEDS: HYDROcodone/APAP 10/325 1 TAB TABLET PO (18:25)
[2017-08-15 19:02] LABS: ADD MAN DIFF? NO
[2017-08-15 19:05] LABS: BASO % 1 % (0-3); EOS # 0.3 x10^3/uL (0.0-0.7); EOS % 3 % (0-3); HEMATOCRIT 37.2 % (36.0-47.0); HEMOGLOBIN 12.4 g/dL (12.0-15.5); LYMPH # 1.5 x10^3/uL (1.0-4.8); LYMPH % 18 % (24-48); MEAN CORPUSCULAR HEMOGLOBIN 30 pg (25-35); MEAN CORPUSCULAR HGB CONC 33 g/dL (31-37); MEAN CORPUSCULAR VOLUME 91 fL (79-100); MONO # 0.9 x10^3/uL (0.0-1.1); MONO % 12 % (0-9); NEUT # 5.3 x10^3uL (1.8-7.7); NEUT % 67 % (31-73); PLATELET COUNT 207 x10^3/uL (140-400); RED BLOOD COUNT 4.09 x10^6/uL (3.50-5.40); RED CELL DISTRIBUTION WIDTH 12.4 % (11.5-14.5)
[2017-08-15 19:18] LABS: ANION GAP 9 (6-14); BLOOD UREA NITROGEN 61 mg/dL (7-20); BUN/CREATININE RATIO 29 (6-20); CALCIUM 9.2 mg/dL (8.5-10.1); CARBON DIOXIDE 31 mmol/L (21-32); CHLORIDE 97 mmol/L (98-107); CREATININE 2.1 mg/dL (0.6-1.0); GFR 27.3; GLUCOSE 224 mg/dL (70-99); POTASSIUM 3.9 mmol/L (3.5-5.1); SODIUM 137 mmol/L (136-145)
[2017-08-15 19:24] LABS: ALBUMIN 3.5 g/dL (3.4-5.0); ALBUMIN/GLOBULIN RATIO 0.7 (1.0-1.7); ALK PHOS 191 U/L (46-116); ALT (SGPT) 14 U/L (14-59); AST (SGOT) 17 U/L (15-37); TOTAL BILIRUBIN 0.4 mg/dL (0.2-1.0); TOTAL PROTEIN 8.3 g/dL (6.4-8.2); URIC ACID 14.2 mg/dL (2.6-6.0)
== END 2017-08-15 19:52 | disposition home or self-care (01) ==
LOC: ER 17:28
DX: M10.9 Gout, unspecified (principal); I11.9 Hypertensive heart disease without heart failure; E11.9 Type 2 diabetes mellitus without complications; I25.2 Old myocardial infarction; Z95.5 Presence of coronary angioplasty implant and graft; Z88.6 Allergy status to analgesic agent; Z88.8 Allergy status to other drugs, medicaments and biological substances
CPT/HCPCS: 36415; 73630; 80053; 84550; 85025; 99285-25

== ENCOUNTER 2018-04-04 10:30 | Inpatient (IN) | payer OTHER ==
[~2018-04-04] VITALS: Ht 162.6 cm; Wt 97.7 kg
[~2018-04-04 10:30] MED LIST changes: +BENZ-8 PO; +CARV3.12 PO; +FURO80TA3 PO; +GABA300C8 PO; +GLIP10TA13 PO; -IPRA3AMP NEB; +IPRA3AMP29 NEB; -LOSA25TA4 PO; +LOSA25TA5 PO; +OMEP40CA5 PO
--- NOTE | 2018-04-04 10:59 | PHYS DOC ---
Past Medical History Past Medical History: Diabetes-Type II, Heart Disease, Hypertension, VT, Other Additional Past Medical Histor: GOUT Past Surgical History: Angioplasty, Appendectomy, Cholecystectomy, Hysterectomy , Other Additional Past Surgical Histo: cardiac stents, cardiac catheterization x4 Alcohol Use: None Drug Use: None Adult General Chief Complaint Chief Complaint: CHEST PAIN-CARDIAC NATURE HPI HPI Patient is a 83 year old female with history of hypertension, high cholesterol , diabetes type 2, CAD, 3 MIs per her statement, last VT she states happened in December 2017 when she was admitted at [facility], she states she was given Lasix no interventions were done. Patient presents today complaining of an 8 out of 10 squeezing intermittent generalized frontal chest pain that has been going on since yesterday. Patient states the pain sometimes gets worse when she is moving around. Patient states she tried nitroglycerin, aspirin this morning with no relief. She states she also feels her abdomen is bloated. Patient denies any pain radiating, denies any nausea vomiting. PCP Dr. Medinaole Benefits Clerk Dr. Sanchez at . Review of Systems Review of Systems Constitutional: Denies fever or chills [] Eyes: Denies change in visual acuity, redness, or eye pain [] HENT: Denies nasal congestion or sore throat [] Respiratory: Denies cough or shortness of breath [] Cardiovascular: Reports chest pain GI: Reports abdominal bloating, denies nausea, vomiting, bloody stools or diarrhea [] : Denies dysuria or hematuria [] Musculoskeletal: Denies back pain or joint pain [] Integument: Denies rash or skin lesions [] Neurologic: Denies headache, focal weakness or sensory changes [] All other systems were reviewed and found to be within normal limits, except as documented in this note. Allergies Allergies Allergies Coded Allergies Type Severity Reaction Last Updated Verified metformin Allergy Intermediate 02/11/17 Yes tramadol Allergy Intermediate 06/26/16 Yes Physical Exam Physical Exam Constitutional: Well developed, well nourished, no acute distress, non-toxic appearance. [] HENT: Normocephalic, atraumatic, bilateral external ears normal, oropharynx moist, no oral exudates, nose normal. [] Eyes: PERRLA, EOMI, conjunctiva normal, no discharge. [] Neck: Normal range of motion, no tenderness, supple, no stridor. [] Cardiovascular:Heart rate regular rhythm, no murmur [] Lungs & Thorax: Bilateral breath sounds clear to auscultation [] Abdomen: Bowel sounds normal, soft, no tenderness, no masses, no pulsatile masses. [] Skin: Warm, dry, no erythema, no rash. [] Back: No tenderness, no CVA tenderness. [] Extremities: No tenderness, no cyanosis, no clubbing, ROM intact, no edema. [] Neurologic: Alert and oriented X 3, normal motor function, normal sensory function, no focal deficits noted. [] Psychologic: Affect normal, judgement normal, mood normal. [] Current Patient Data Vital Signs Vital Signs Date Time Temp Pulse Resp B/P (MAP) Pulse Ox O2 Delivery O2 Flow Rate FiO2 04/04/18 10:33 98.2 73 24 116/57 (76) 99 Room Air 98.2 Lab Values Laboratory Tests Test 04/04/18 11:21 04/04/18 11:30 Urine Collection Type Unknown Urine Color Yellow Urine Clarity Clear Urine pH 5.5 Urine Specific [place] 1.015 Urine Protein Negative mg/dL (NEG-TRACE) Urine Glucose (UA) Negative mg/dL (NEG) Urine Ketones (Stick) Negative mg/dL (NEG) Urine Blood Negative (NEG) Urine Nitrite Negative (NEG) Urine Bilirubin Negative (NEG) Urine Urobilinogen Dipstick 0.2 mg/dL (0.2 mg/dL) Urine Leukocyte Esterase Negative (NEG) Urine RBC Occ /HPF (0-2) Urine WBC Occ /HPF (0-4) Urine Squamous Epithelial Cells Many /LPF Urine Bacteria Few /HPF (0-FEW) Urine Mucus Marked /LPF Urine Opiates Screen Neg (NEG) Urine Methadone Screen Neg (NEG) Urine Barbiturates Neg (NEG) Urine Phencyclidine Screen Neg (NEG) Urine Amphetamine/Methamphetamine Neg (NEG) Urine Benzodiazepines Screen Neg (NEG) Urine Cocaine Screen Neg (NEG) Urine Cannabinoids Screen Neg (NEG) Urine Ethyl Alcohol Neg (NEG) White Blood Count 5.3 x10^3/uL (4.0-11.0) Red Blood Count 3.65 x10^6/uL (3.50-5.40) Hemoglobin 11.3 g/dL (12.0-15.5) L Hematocrit 33.7 % (36.0-47.0) L Mean Corpuscular Volume 92 fL (79-100) Mean Corpuscular Hemoglobin 31 pg (25-35) Mean Corpuscular Hemoglobin Concent 34 g/dL (31-37) Red Cell Distribution Width 12.8 % (11.5-14.5) Platelet Count 175 x10^3/uL (140-400) Neutrophils (%) (Auto) 66 % (31-73) Lymphocytes (%) (Auto) 19 % (24-48) L Monocytes (%) (Auto) 10 % (0-9) H Eosinophils (%) (Auto) 5 % (0-3) H Basophils (%) (Auto) 0 % (0-3) Neutrophils # (Auto) 3.5 x10^3uL (1.8-7.7) Lymphocytes # (Auto) 1.0 x10^3/uL (1.0-4.8) Monocytes # (Auto) 0.5 x10^3/uL (0.0-1.1) Eosinophils # (Auto) 0.3 x10^3/uL (0.0-0.7) Basophils # (Auto) 0.0 x10^3/uL (0.0-0.2) Prothrombin Time 12.8 SEC (11.7-14.0) Prothrombin Time INR 1.0 (0.8-1.1) Sodium Level 138 mmol/L (136-145) Potassium Level 4.4 mmol/L (3.5-5.1) Chloride Level 104 mmol/L (98-107) Carbon Dioxide Level 28 mmol/L (21-32) Anion Gap 6 (6-14) Blood Urea Nitrogen 30 mg/dL (7-20) H Creatinine 1.8 mg/dL (0.6-1.0) H Estimated GFR (Cockcroft-Gault) 32.5 BUN/Creatinine Ratio 17 (6-20) Glucose Level 206 mg/dL (70-99) H Calcium Level 9.5 mg/dL (8.5-10.1) Magnesium Level 1.9 mg/dL (1.8-2.4) Total Bilirubin 0.6 mg/dL (0.2-1.0) Aspartate Amino Transferase (AST) 19 U/L (15-37) Alanine Aminotransferase (ALT) 20 U/L (14-59) Alkaline Phosphatase 136 U/L (46-116) H Creatine Kinase 123 U/L (26-192) Creatine Kinase MB (Mass) < 0.5 ng/mL (0.0-3.6) Creatine Kinase MB Relative Index % (0-4) Troponin I Quantitative < 0.017 ng/mL (0.000-0.055) YQ-Ypa-L-Type Natriuretic Peptide 1824 pg/mL (0-449) H Total Protein 7.3 g/dL (6.4-8.2) Albumin 3.4 g/dL (3.4-5.0) Albumin/Globulin Ratio 0.9 (1.0-1.7) L Laboratory Tests 04/04/18 11:30 Laboratory Tests 04/04/18 11:30 EKG EKG Interpreted by Dr. Zamarripa sinus rhythm, Inverted T waves on leads II -same on EKG done 08/21/2017 no STEMI Radiology/Procedures Radiology/Procedures []PROCEDURE: ACUTE ABDOMEN SERIES Acute abdomen series, 3 views, 04/04/2018: HISTORY: Chest pain The abdominal gas pattern is unremarkable without evidence of obstruction. No free air is seen in the abdomen. Surgical clips are present in the right upper quadrant and in the right upper pelvis. Vascular calcifications are evident in the pelvis. There is no evidence organomegaly. Moderate multilevel degenerative changes are present in the spine. A left-sided transvenous pacemaker remains in place with 2 leads extending into the right heart. The heart is mildly enlarged. The pulmonary vascularity is normal. No pulmonary infiltrate is seen. IMPRESSION: 1. No acute abdominal abnormality is detected. 2. Mild cardiomegaly Electronically signed by: Cuba Quintero MD (04/04/2018 11:46 AM) [facility] DICTATED and SIGNED BY: CUBA QUINTERO MD DATE: 04/04/18 6428 Course & Med Decision Making Course & Med Decision Making Pertinent Labs and Imaging studies reviewed. (See chart for details) This is a 23-year-old female patient presented to the ED today complaining of chest pain that began yesterday. Patient's cardiac workup is negative for any acute findings. CMP was noted for creatinine at 1.8, she has hx of renal insufficiency and this is around her baseline. Heart score [address] Cha who accepted patient for admission. Routine consult placed for cardiology Dragon Disclaimer Baldemar Disclaimer This electronic medical record was generated, in whole or in part, using a voice recognition dictation system. Departure Departure Impression: Primary Impression: Chest pain Additional Impression: Acute on chronic renal failure Disposition: ADMITTED INPATIENT Condition: STABLE Referrals: SHAMA DUEÑAS (PCP) Problem Qualifiers Primary Impression: Chest pain Chest pain type: unspecified Qualified Codes: R07.9 - Chest pain, unspecified Additional Impression: Acute on chronic renal failure Acute renal failure type: unspecified Chronic kidney disease stage: unspecified stage Qualified Codes: N17.9 - Acute kidney failure, unspecified; N18.9 - Chronic kidney disease, unspecified WILMER PACHECO MINCEMEAT MAKER Apr 04, 2018 10:59
[2018-04-04 11:42] LABS: BASO % 0 % (0-3); EOS # 0.3 x10^3/uL (0.0-0.7); EOS % 5 % (0-3); HEMATOCRIT 33.7 % (36.0-47.0); HEMOGLOBIN 11.3 g/dL (12.0-15.5); LYMPH % 19 % (24-48); MEAN CORPUSCULAR HEMOGLOBIN 31 pg (25-35); MEAN CORPUSCULAR HGB CONC 34 g/dL (31-37); MEAN CORPUSCULAR VOLUME 92 fL (79-100); MONO # 0.5 x10^3/uL (0.0-1.1); MONO % 10 % (0-9); NEUT # 3.5 x10^3uL (1.8-7.7); NEUT % 66 % (31-73); PLATELET COUNT 175 x10^3/uL (140-400); RED BLOOD COUNT 3.65 x10^6/uL (3.50-5.40); RED CELL DISTRIBUTION WIDTH 12.8 % (11.5-14.5); WHITE BLOOD COUNT 5.3 x10^3/uL (4.0-11.0)
[2018-04-04 11:45] LABS: BILIRUBIN,URINE NEGATIVE (NEG); CLARITY,URINE CLEAR; COLOR,URINE YELLOW; NITRITE,URINE NEGATIVE (NEG); PH,URINE 5.5; PROTEIN,URINE NEGATIVE (NEG-TRACE); UROBILINOGEN,URINE 0.2 mg/dL (0.2 mg/dL)
[2018-04-04 11:47] LABS: BARBITURATES NEG (NEG); BENZODIAZEPINES NEG (NEG); CANNABINOIDS NEG (NEG); COCAINE NEG (NEG); METHADONE NEG (NEG); OPIATES NEG (NEG); PHENCYCLIDINE NEG (NEG)
[2018-04-04 11:48] LABS: AMPHETAMINE/METHAMPHETAMINE NEG (NEG)
[2018-04-04 11:48] LABS: CALCIUM 9.5 mg/dL (8.5-10.1); CREATININE 1.8 mg/dL (0.6-1.0); GFR 32.5; POTASSIUM 4.4 mmol/L (3.5-5.1)
--- NOTE | 2018-04-04 11:49 | RAD ---
Acute abdomen series, 3 views, 04/04/2018: HISTORY: Chest pain The abdominal gas pattern is unremarkable without evidence of obstruction. No free air is seen in the abdomen. Surgical clips are present in the right upper quadrant and in the right upper pelvis. Vascular calcifications are evident in the pelvis. There is no evidence organomegaly. Moderate multilevel degenerative changes are present in the spine. A left-sided transvenous pacemaker remains in place with 2 leads extending into the right heart. The heart is mildly enlarged. The pulmonary vascularity is normal. No pulmonary infiltrate is seen. IMPRESSION: 1. No acute abdominal abnormality is detected. 2. Mild cardiomegaly Electronically signed by: Cuba Quintero MD (04/04/2018 11:46 AM) [facility]
[2018-04-04 11:54] LABS: ALBUMIN 3.4 g/dL (3.4-5.0); ALBUMIN/GLOBULIN RATIO 0.9 (1.0-1.7); MAGNESIUM 1.9 mg/dL (1.8-2.4); TOTAL BILIRUBIN 0.6 mg/dL (0.2-1.0); TOTAL PROTEIN 7.3 g/dL (6.4-8.2)
[2018-04-04 11:55] LABS: PROTHROMBIN TIME PATIENT 12.8 SEC (11.7-14.0)
[2018-04-04 12:04] LABS: BACTERIA,URINE FEW /HPF (0-FEW); RBC,URINE OCC /HPF (0-2); SQUAMOUS EPITHELIAL CELL,UR MANY /LPF; WBC,URINE OCC /HPF (0-4)
[2018-04-04 12:06] LABS: CREATINE KINASE 123 U/L (26-192)
--- NOTE | 2018-04-04 12:11 | EKG ---
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
[2018-04-04] MEDS ORDERED: MORPHINE SULFATE 2 MG/ML VIAL. IV PRN ×2 (12:30→13:30)
[2018-04-04] MEDS ORDERED: MAG HYDROX/ALUMINUM HYD/SIMETH 30 ML ORAL.SUSP PO PRN (12:30)
[2018-04-04] MEDS ORDERED: MAGNESIUM HYDROXIDE 2,400 MG/30 ML ORAL.SUSP. PO PRN (12:30)
[2018-04-04] MEDS ORDERED: HYDROcodone/APAP 5/325MG 1 TAB TABLET PO PRN (12:30)
[2018-04-04] MEDS ORDERED: DEXTROSE 50% 25 GM / 50ML DISP.SYRIN. IV PRN (12:30)
[2018-04-04] MEDS ORDERED: NITROGLYCERIN SUBLINGUAL 0.4 MG BOTTLE OF 25. SL PRN ×2 (12:30→13:00)
[2018-04-04] MEDS ORDERED: CALCIUM CARBONATE 500 MG TAB.CHEW PO PRN (12:30)
[2018-04-04] MEDS ORDERED: PROCHLORPERAZINE 25 MG SUPP.RECT. PR PRN (12:30)
[2018-04-04] MEDS ORDERED: BISACODYL 10 MG SUPP.RECT. PR PRN (12:30)
[2018-04-04] MEDS ORDERED: ONDANSETRON PF 4 MG/2 ML VIAL. IV PRN ×2 (12:30→13:00)
[2018-04-04] MEDS ORDERED: ACETAMINOPHEN 325 MG TABLET. PO PRN (12:30)
[2018-04-04] MEDS ORDERED: MUPIROCIN 2 % NASAL OINTMENT 22GM TUBE. TP PRN (12:30)
[2018-04-04] MEDS ORDERED: PROCHLORPERAZINE 10 MG/2 ML VIAL. IV PRN (12:30)
[2018-04-04] MEDS ORDERED: oxyCODONE IR 5 MG TABLET PO PRN (12:30)
[2018-04-04] MEDS ORDERED: fentaNYL PF VIAL 100 MCG/2 ML VIAL IV PRN (13:00)
[2018-04-04] MEDS ORDERED: tiZANidine 4 MG TABLET. PO PRN ×2 (13:00)
--- NOTE | 2018-04-04 13:25 | PDOC1 ---
History and Physical Date of Admission Date of Admission DATE: 04/04/18 TIME: 13:19 Identification/Chief Complaint Chief Complaint SOA, chest congestion Source Source: Caregiver, Chart review, Patient History of Present Illness History of Present Illness 83-year-old female, very pleasant, BMI 35, good ADLs and IADLs and actually looks younger than stated age, accompanied by multiple family members today. Chest pain she described as chest tightness and heaviness midsternal with SOA, with no presyncopal sxs, No identifiable precipitating or alleviating factors started last night at rest. She does have history of CAD with 3-4 stents indwelling. CArds is Dr. gilmore or [facility] but some of the cardiac stents were placed here. Compliant with home meds. Labs are unremarkable etc. for creatinine of 1.8. She knows this, PCP is watching her kidney numbers. She is compliant with her Lasix 40 once a day. She complains of frothy sputum, more leg swelling and bloatedness in the abdomen. Chest x-ray still pending. Hemoglobin A1c is unknown. But her blood sugars can be better controlled. At one point it was over 600s. But blood pressure is rather controlled. Hemoglobin is 11, INR is 1.0. Is on Lantus 30 units daily at bedtime and "claims compliance. We will admit have nephrology and cardiology see. I have reconciled home meds. Still complaining of some chest tightness, which moves to the dependent side she claims when she lays lateral. We'll give a dose of Lasix and morphine. Have PT OT, cardiology, nephrology and go from there. Agreeable to my plan of care Seen at ER Past Medical History Cardiovascular: CAD, CHF, HTN, CT, Hyperlipidemia Pulmonary: Asthma, Other CENTRAL NERVOUS SYSTEM: Other GI: Constipation, GERD Heme/Onc: Anemia NOS Psych: Anxiety Musculoskeletal: Osteoarthritis, Other Renal/: Chronic renal insuff Endocrine: Diabetes Past Surgical History Past Surgical History: Appendectomy, Cholecystectomy, Cataract Removal, Other Family History Family History: No Significant Social History ALCOHOL: none Drugs: None Current Problem List Problem List Problems Medical Problems: (1) Acute on chronic renal failure Status: Acute (2) Chest pain Status: Acute Current Medications Current Medications Current Medications Ondansetron HCl (Zofran) 4 mg PRN Q6HRS PRN IV NAUSEA/VOMITING 1ST CHOICE; Start 828/18 at 12:30 Prochlorperazine Edisylate (Compazine) 10 mg PRN Q6HRS PRN IV NAUSEA/VOMITING 2ND CHOICE; Start 04/04/18 at 12:30 Prochlorperazine (Compazine) 25 mg PRN Q12HR PRN OR NAUSEA/VOMITING; Start at 12:30 Al Hydroxide/Mg Hydroxide (Mylanta Plus Xs) 30 ml PRN Q3HRS PRN PO HEARTBURN / GAS; Start 04/04/18 at 12:30 Calcium Carbonate/ Glycine (Tums) 500 mg PRN Q3HRS PRN PO UPSET STOMACH; Start 04/04/18 at 12:30 Oxycodone HCl (Roxicodone) 5 mg PRN Q3HRS PRN PO SEVERE PAIN; Start 04/04/18 at 12:30 Morphine Sulfate (Morphine Sulfate) 1 mg PRN Q1HR PRN IV PAIN MILD; Start 04/04 at 12:30 Acetaminophen (Tylenol) 650 mg PRN Q6HRS PRN PO Headaches, Temp > 101.5F; Start 04/04/18 at 12:30 Docusate Sodium (Colace) 100 mg BID PO ; Start 04/04/18 at 21:00 Magnesium Hydroxide (Milk Of Magnesia) 2,400 mg PRN Q12HR PRN PO CONSTIPATION; Start 04/04/18 at 12:30 Bisacodyl (Dulcolax Supp) 10 mg PRN DAILY PRN OR NO BOWEL MOVEMENT; Start 04/04 at 12:30 Aspirin (Children'S Aspirin) 81 mg DAILY PO ; Start 04/05/18 at 09:00 Atorvastatin Calcium (Lipitor) 40 mg QHS PO ; Start 04/04/18 at 21:00 Carvedilol (Coreg) 3.125 mg BIDWMEALS PO ; Start 04/04/18 at 17:00 Colchicine (Colcrys) 0.6 mg DAILY PO ; Start 04/05/18 at 09:00 Diclofenac Sodium (Voltaren) 1 amy PRN BID PRN TP PAINFUL AREA; Start 04/04/18 at 21:00 Dicyclomine HCl (Bentyl) 10 mg TID PO ; Start 04/04/18 at 14:00 Furosemide (Lasix) 40 mg DAILY PO ; Start 04/05/18 at 09:00 Acetaminophen/ Hydrocodone Bitart (Lortab 5/325) 1 tab PRN Q6HRS PRN PO PAIN MILD; Start 04/04/18 at 12:30 Albuterol/ Ipratropium (Duoneb) 3 ml RTBID NEB ; Start 04/04/18 at 20:00 Mupirocin (Bactroban) 1 amy TID PRN TP PAIN; Start 04/04/18 at 12:30; Status UNV Nitroglycerin (Nitrostat) 0.4 mg PRN Q5MIN PRN SL CHEST PAIN; Start 04/04/18 at 12:30 Ticagrelor (Brilinta) 90 mg BID PO ; Start 04/04/18 at 21:00 Benzonatate (Tessalon Perle) 100 mg PRN TID PRN PO COUGH 1ST CHOICE; Start at 14:00 Gabapentin (Neurontin) 300 mg DAILY PO ; Start 04/05/18 at 09:00 Glipizide (Glucotrol) 5 mg BIDBFRMEAL PO ; Start 04/04/18 at 16:30 Pantoprazole Sodium (Protonix) 40 mg DAILYAC PO ; Start 04/05/18 at 07:30 Polyethylene Glycol (miraLAX PACKET) 17 gm PRN DAILY PRN PO CONSTIPATION 1ST CHOICE; Start 04/05/18 at 09:00 Non-Formulary Medication (Prednisone ) 50 mg DAILY PO ; Start 04/05/18 at 09:00 ; Status UNV Tizanidine HCl (Zanaflex) 4 mg PRN TID PRN PO MUSCLE SPASMS; Start 04/04/18 at 13:00; Stop 04/04/18 at 13:00; Status DC Insulin Glargine (Lantus) 30 units QHS SQ ; Start 04/04/18 at 21:00 Insulin Human Lispro (HumaLOG) 0-9 UNITS TIDWMEALS SQ ; Start 04/04/18 at 17:00 Dextrose (Dextrose 50%-Water Syringe) 12.5 gm PRN Q15MIN PRN IV SEE COMMENTS; Start 04/04/18 at 12:30 Tizanidine HCl (Zanaflex) 4 mg PRN QID PRN PO MUSCLE SPASMS; Start 04/04/18 at 13:00 Ondansetron HCl (Zofran) 4 mg PRN Q8HRS PRN IV NAUSEA/VOMITING; Start 04/04/18 at 13:00; Stop 04/05/18 at 12:59 Fentanyl Citrate (Fentanyl 2ml Vial) 50 mcg PRN Q2HR PRN IV PAIN; Start at 13:00; Stop 04/05/18 at 12:59 Nitroglycerin (Nitrostat) 0.4 mg PRN Q5MIN PRN SL CHEST PAIN; Start 04/04/18 at 13:00; Stop 04/05/18 at 12:59 Active Scripts Active Greene 5-325 Tablet (Acetaminophen/Hydrocodone Bitart) 1 Each Tablet 1-2 Tab PO Q4-6HRS Prednisone 50 Mg Tablet 50 Mg PO DAILY 5 Days Greene 5-325 Tablet (Acetaminophen/Hydrocodone Bitart) 1 Each Tablet 1 Tab PO PRN Q6HRS PRN Colcrys (Colchicine) 0.6 Mg Tablet 0.6 Mg PO EVERY HOUR PRN Take 1 pill every hour by mouth as needed for an acute gout attack up to 5 doses. Stop if you have nausea or stomach irritation. Brilinta (Ticagrelor) 90 Mg Tablet 90 Mg PO BID Duoneb 0.5-3(2.5) Mg/3 Ml (Albuterol/Ipratropium) 3 Ml Ampul.neb 3 Ml NEB BID Atorvastatin Calcium 40 Mg Tablet 40 Mg PO QHS Reported Furosemide 40 Mg Tablet 1 Tab PO DAILY Coreg (Carvedilol) 3.125 Mg Tablet 1 Tab PO BID Glipizide 10 Mg Tablet 0.5 Tab PO BID Omeprazole 40 Mg Capsule.dr 1 Cap PO DAILY Benzonatate 100 Mg Capsule 100 Mg PO PRN TID Gabapentin 300 Mg Capsule 300 PO DAILY Tizanidine Hcl 2 Mg Capsule 2 Mg PO QID PRN NITROGLYCERIN SubLingual (Nitroglycerin) 0.4 Mg Tab.subl 0.4 Mg SL PRN Q5MIN PRN Voltaren (Diclofenac Sodium) 100 Gm Gel..gram. 2 Gm TP BID PRN Lantus (Insulin Glargine,Hum.rec.anlog) 100 Unit/1 Ml Vial 30 Unit SQ Mupirocin Ointment (Mupirocin) 22 Gm Oint...g. 1 Amy TP TID PRN Aspirin 81 Mg Tab.chew 1 Tab PO DAILY Dicyclomine Hcl 10 Mg Capsule 1 Cap PO TID Miralax (Polyethylene Glycol 3350) 17 Gm Powd.pack 1 Packet PO DAILY PRN Allergies Allergies: Coded Allergies: metformin (Verified Allergy, Intermediate, 02/11/17) tramadol (Verified Allergy, Intermediate, 06/26/16) ROS Review of System As per history of present illness, the rest of ROS 14 point negative Physical Exam General: No acute distress HEENT: EOMI, Mucous membr. moist/pink Lungs: Normal air movement, Other (decrease breath sounds but equal air entry, no wheezing, maybe some basilar crackles) Heart: S1S2, RRR, no thrills, no rubs, no gallops, no murmurs Abdomen: Normal bowel sounds, Soft, No tenderness, No hepatosplenomegaly, No masses, Other (obese nontender positive fluid wave) Rectal Exam: not examined Extremities: Other (mild +2 pitting edema, palpable pulses) Skin: No rashes, No breakdown, No significant lesion Neuro: Normal gait, Normal speech, Strength at 5/5 X4 ext, Normal tone, Sensation intact, Cranial nerves 3-12 NL, Reflexes 2+ Psych/Mental Status: Mental status NL, Mood NL Vitals Vitals Vital Signs Date Time Temp Pulse Resp B/P (MAP) Pulse Ox O2 Delivery O2 Flow Rate FiO2 04/04/18 10:33 98.2 73 24 116/57 (76) 99 Room Air 98.2 Labs Labs Laboratory Tests Test 04/04/18 11:21 04/04/18 11:30 Urine Collection Type Unknown Urine Color Yellow Urine Clarity Clear Urine pH 5.5 Urine Specific [place] 1.015 Urine Protein Negative mg/dL (NEG-TRACE) Urine Glucose (UA) Negative mg/dL (NEG) Urine Ketones (Stick) Negative mg/dL (NEG) Urine Blood Negative (NEG) Urine Nitrite Negative (NEG) Urine Bilirubin Negative (NEG) Urine Urobilinogen Dipstick 0.2 mg/dL (0.2 mg/dL) Urine Leukocyte Esterase Negative (NEG) Urine RBC Occ /HPF (0-2) Urine WBC Occ /HPF (0-4) Urine Squamous Epithelial Cells Many /LPF Urine Bacteria Few /HPF (0-FEW) Urine Mucus Marked /LPF Urine Opiates Screen Neg (NEG) Urine Methadone Screen Neg (NEG) Urine Barbiturates Neg (NEG) Urine Phencyclidine Screen Neg (NEG) Urine Amphetamine/Methamphetamine Neg (NEG) Urine Benzodiazepines Screen Neg (NEG) Urine Cocaine Screen Neg (NEG) Urine Cannabinoids Screen Neg (NEG) Urine Ethyl Alcohol Neg (NEG) White Blood Count 5.3 x10^3/uL (4.0-11.0) Red Blood Count 3.65 x10^6/uL (3.50-5.40) Hemoglobin 11.3 g/dL (12.0-15.5) Hematocrit 33.7 % (36.0-47.0) Mean Corpuscular Volume 92 fL (79-100) Mean Corpuscular Hemoglobin 31 pg (25-35) Mean Corpuscular Hemoglobin Concent 34 g/dL (31-37) Red Cell Distribution Width 12.8 % (11.5-14.5) Platelet Count 175 x10^3/uL (140-400) Neutrophils (%) (Auto) 66 % (31-73) Lymphocytes (%) (Auto) 19 % (24-48) Monocytes (%) (Auto) 10 % (0-9) Eosinophils (%) (Auto) 5 % (0-3) Basophils (%) (Auto) 0 % (0-3) Neutrophils # (Auto) 3.5 x10^3uL (1.8-7.7) Lymphocytes # (Auto) 1.0 x10^3/uL (1.0-4.8) Monocytes # (Auto) 0.5 x10^3/uL (0.0-1.1) Eosinophils # (Auto) 0.3 x10^3/uL (0.0-0.7) Basophils # (Auto) 0.0 x10^3/uL (0.0-0.2) Prothrombin Time 12.8 SEC (11.7-14.0) Prothromb Time International Ratio 1.0 (0.8-1.1) Sodium Level 138 mmol/L (136-145) Potassium Level 4.4 mmol/L (3.5-5.1) Chloride Level 104 mmol/L (98-107) Carbon Dioxide Level 28 mmol/L (21-32) Anion Gap 6 (6-14) Blood Urea Nitrogen 30 mg/dL (7-20) Creatinine 1.8 mg/dL (0.6-1.0) Estimated GFR (Cockcroft-Gault) 32.5 BUN/Creatinine Ratio 17 (6-20) Glucose Level 206 mg/dL (70-99) Calcium Level 9.5 mg/dL (8.5-10.1) Magnesium Level 1.9 mg/dL (1.8-2.4) Total Bilirubin 0.6 mg/dL (0.2-1.0) Aspartate Amino Transf (AST/SGOT) 19 U/L (15-37) Alanine Aminotransferase (ALT/SGPT) 20 U/L (14-59) Alkaline Phosphatase 136 U/L (46-116) Creatine Kinase 123 U/L (26-192) Creatine Kinase MB (Mass) < 0.5 ng/mL (0.0-3.6) Creatine Kinase MB Relative Index % (0-4) Troponin I Quantitative < 0.017 ng/mL (0.000-0.055) HP-Wkj-Y-Type Natriuretic Peptide 1824 pg/mL (0-449) Total Protein 7.3 g/dL (6.4-8.2) Albumin 3.4 g/dL (3.4-5.0) Albumin/Globulin Ratio 0.9 (1.0-1.7) Laboratory Tests Test 04/04/18 11:21 04/04/18 11:30 Urine Collection Type Unknown Urine Color Yellow Urine Clarity Clear Urine pH 5.5 Urine Specific [place] 1.015 Urine Protein Negative mg/dL (NEG-TRACE) Urine Glucose (UA) Negative mg/dL (NEG) Urine Ketones (Stick) Negative mg/dL (NEG) Urine Blood Negative (NEG) Urine Nitrite Negative (NEG) Urine Bilirubin Negative (NEG) Urine Urobilinogen Dipstick 0.2 mg/dL (0.2 mg/dL) Urine Leukocyte Esterase Negative (NEG) Urine RBC Occ /HPF (0-2) Urine WBC Occ /HPF (0-4) Urine Squamous Epithelial Cells Many /LPF Urine Bacteria Few /HPF (0-FEW) Urine Mucus Marked /LPF Urine Opiates Screen Neg (NEG) Urine Methadone Screen Neg (NEG) Urine Barbiturates Neg (NEG) Urine Phencyclidine Screen Neg (NEG) Urine Amphetamine/Methamphetamine Neg (NEG) Urine Benzodiazepines Screen Neg (NEG) Urine Cocaine Screen Neg (NEG) Urine Cannabinoids Screen Neg (NEG) Urine Ethyl Alcohol Neg (NEG) White Blood Count 5.3 x10^3/uL (4.0-11.0) Red Blood Count 3.65 x10^6/uL (3.50-5.40) Hemoglobin 11.3 g/dL (12.0-15.5) Hematocrit 33.7 % (36.0-47.0) Mean Corpuscular Volume 92 fL (79-100) Mean Corpuscular Hemoglobin 31 pg (25-35) Mean Corpuscular Hemoglobin Concent 34 g/dL (31-37) Red Cell Distribution Width 12.8 % (11.5-14.5) Platelet Count 175 x10^3/uL (140-400) Neutrophils (%) (Auto) 66 % (31-73) Lymphocytes (%) (Auto) 19 % (24-48) Monocytes (%) (Auto) 10 % (0-9) Eosinophils (%) (Auto) 5 % (0-3) Basophils (%) (Auto) 0 % (0-3) Neutrophils # (Auto) 3.5 x10^3uL (1.8-7.7) Lymphocytes # (Auto) 1.0 x10^3/uL (1.0-4.8) Monocytes # (Auto) 0.5 x10^3/uL (0.0-1.1) Eosinophils # (Auto) 0.3 x10^3/uL (0.0-0.7) Basophils # (Auto) 0.0 x10^3/uL (0.0-0.2) Prothrombin Time 12.8 SEC (11.7-14.0) Prothromb Time International Ratio 1.0 (0.8-1.1) Sodium Level 138 mmol/L (136-145) Potassium Level 4.4 mmol/L (3.5-5.1) Chloride Level 104 mmol/L (98-107) Carbon Dioxide Level 28 mmol/L (21-32) Anion Gap 6 (6-14) Blood Urea Nitrogen 30 mg/dL (7-20) Creatinine 1.8 mg/dL (0.6-1.0) Estimated GFR (Cockcroft-Gault) 32.5 BUN/Creatinine Ratio 17 (6-20) Glucose Level 206 mg/dL (70-99) Calcium Level 9.5 mg/dL (8.5-10.1) Magnesium Level 1.9 mg/dL (1.8-2.4) Total Bilirubin 0.6 mg/dL (0.2-1.0) Aspartate Amino Transf (AST/SGOT) 19 U/L (15-37) Alanine Aminotransferase (ALT/SGPT) 20 U/L (14-59) Alkaline Phosphatase 136 U/L (46-116) Creatine Kinase 123 U/L (26-192) Creatine Kinase MB (Mass) < 0.5 ng/mL (0.0-3.6) Creatine Kinase MB Relative Index % (0-4) Troponin I Quantitative < 0.017 ng/mL (0.000-0.055) KF-Tej-Y-Type Natriuretic Peptide 1824 pg/mL (0-449) Total Protein 7.3 g/dL (6.4-8.2) Albumin 3.4 g/dL (3.4-5.0) Albumin/Globulin Ratio 0.9 (1.0-1.7) VTE Prophylaxis Ordered VTE Prophylaxis Devices: Yes VTE Pharmacological Prophylaxi: Yes Assessment/Plan Assessment/Plan CHF Chest pain History of CAD with 3-4 indwelling stents Hypertension controlled Diabetes type 2 uncontrolled-check hemoglobin A1c Obesity with a BMI 35 AK I on CK D consult renal-she needs Lasix but need to diurese cautiously given kidney numbers Plan- as per above Nephrology, cards consult PT OT Avoid nephrotoxins Renal panel tomorrow Follow cardiology and renal recs I have reconciled home meds Discussed with family members at bedside Seen at ER FUll code IDALIA ABERNATHY MD Apr 04, 2018 13:25
[2018-04-04 13:30] VITALS: BP 106/77
[2018-04-04] MEDS ORDERED: MORPHINE SULFATE 2 MG/ML VIAL. IV ONE (13:30)
[2018-04-04] MEDS ORDERED: FUROSEMIDE 40 MG/4 ML VIAL. IVP ONE (13:30)
[2018-04-04] MEDS ORDERED: BENZONATATE 100 MG CAPSULE. PO PRN (14:00)
[2018-04-04 14:53] VITALS: BP 110/79
[2018-04-04] MEDS: IPRATRPIUM/ALBUTEROL 0.5/2.5MG 3 ML NEBU. NEB SCH ×3 (15:30→20:00)
[2018-04-04] MEDS ORDERED: SIMETHICONE 80 MG TAB.CHEW PO PRN (16:30)
[2018-04-04] MEDS: guaiFENesin DM 200MG/20MG 10 ML SYRUP PO SCH ×2 (17:17→21:28)
[2018-04-04] MEDS: DICYCLOMINE HCL 10 MG CAPSULE PO SCH ×2 (17:17→21:28)
[2018-04-04] MEDS: CETIRIZINE HCL 10 MG TABLET. PO SCH (17:18)
[2018-04-04] MEDS: glipiZIDE 5 MG TABLET PO SCH (17:18)
[2018-04-04] MEDS: CARVEDILOL 3.125 MG TABLET. PO SCH (17:18)
[2018-04-04] MEDS: INSULIN LISPRO 300 UNITS/3 ML INSULN.PEN. SQ SCH (17:35)
[2018-04-04 19:00] VITALS: BP 98/56
[2018-04-04] MEDS ORDERED: DICLOFENAC SODIUM 1% TOPICAL GEL 100GM TUBE. TP PRN (21:00)
[2018-04-04] MEDS: DOCUSATE SODIUM 100 MG CAPSULE. PO SCH (21:28)
[2018-04-04] MEDS: ATORVASTATIN CALCIUM 40 MG TABLET. PO SCH (21:28)
[2018-04-04] MEDS: TICAGRELOR 90 MG TABLET. PO SCH (21:28)
[2018-04-04] MEDS: INSULIN GLARGINE 300 UNITS/3 ML INSULN.PEN. SQ SCH (21:33)
[2018-04-04 23:00] VITALS: BP 109/66
[2018-04-05 03:00] VITALS: BP 104/48
[2018-04-05 04:23] LABS: BASO % 0 % (0-3); EOS # 0.3 x10^3/uL (0.0-0.7); EOS % 5 % (0-3); HEMATOCRIT 29.8 % (36.0-47.0); HEMOGLOBIN 10.3 g/dL (12.0-15.5); LYMPH # 1.2 x10^3/uL (1.0-4.8); LYMPH % 22 % (24-48); MEAN CORPUSCULAR HEMOGLOBIN 32 pg (25-35); MEAN CORPUSCULAR HGB CONC 34 g/dL (31-37); MEAN CORPUSCULAR VOLUME 92 fL (79-100); MONO # 0.6 x10^3/uL (0.0-1.1); MONO % 12 % (0-9); NEUT # 3.3 x10^3uL (1.8-7.7); NEUT % 61 % (31-73); PLATELET COUNT 163 x10^3/uL (140-400); RED BLOOD COUNT 3.24 x10^6/uL (3.50-5.40); RED CELL DISTRIBUTION WIDTH 13.2 % (11.5-14.5); WHITE BLOOD COUNT 5.5 x10^3/uL (4.0-11.0)
[2018-04-05 04:43] LABS: ALBUMIN/GLOBULIN RATIO 0.8 (1.0-1.7); CALCIUM 9.2 mg/dL (8.5-10.1); CREATININE 2.1 mg/dL (0.6-1.0); GFR 27.2; POTASSIUM 4.3 mmol/L (3.5-5.1); TOTAL BILIRUBIN 0.4 mg/dL (0.2-1.0); TOTAL PROTEIN 6.8 g/dL (6.4-8.2)
[2018-04-05 07:00] VITALS: BP 115/44
[2018-04-05] MEDS: CETIRIZINE HCL 10 MG TABLET. PO SCH (07:29)
[2018-04-05] MEDS: DOCUSATE SODIUM 100 MG CAPSULE. PO SCH ×2 (07:29→20:52)
[2018-04-05] MEDS: glipiZIDE 5 MG TABLET PO SCH ×2 (07:29→16:18)
[2018-04-05] MEDS: INSULIN LISPRO 300 UNITS/3 ML INSULN.PEN. SQ SCH ×3 (08:00→16:28)
[2018-04-05] MEDS: IPRATRPIUM/ALBUTEROL 0.5/2.5MG 3 ML NEBU. NEB SCH ×5 (08:00→18:59)
[2018-04-05] MEDS: PANTOPRAZOLE 40 MG TABLET.DR. PO SCH (08:34)
[2018-04-05] MEDS: ASPIRIN CHEWABLE 81 MG TABLET. PO SCH (08:34)
[2018-04-05] MEDS: TICAGRELOR 90 MG TABLET. PO SCH ×2 (08:34→20:52)
[2018-04-05] MEDS: DICYCLOMINE HCL 10 MG CAPSULE PO SCH ×3 (08:34→20:52)
[2018-04-05] MEDS: GABAPENTIN 300 MG CAPSULE. PO SCH (08:34)
[2018-04-05] MEDS: CARVEDILOL 3.125 MG TABLET. PO SCH ×2 (08:35→16:18)
[2018-04-05] MEDS: guaiFENesin DM 200MG/20MG 10 ML SYRUP PO SCH ×4 (08:35→20:52)
[2018-04-05] MEDS: COLCHICINE 0.6 MG TABLET PO SCH ×2 (08:35→08:44)
[2018-04-05] MEDS ORDERED: FUROSEMIDE 40 MG TABLET. PO SCH (09:00)
[2018-04-05] MEDS ORDERED: NON FORMULARY ITEM (Prednisone 50 MG) PO SCH (09:00)
[2018-04-05] MEDS ORDERED: POLYETHYLENE GLYCOL 3350 17 GM PACKET. PO PRN (09:00)
[2018-04-05 10:43] VITALS: BP 108/44
--- NOTE | 2018-04-05 10:55 | PDOC ---
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 PT about to work with her Vital signs okay Appreciate renal-has consulted Plan: Await radiology Rounds Avoid nephrotoxins Recheck renal panel again tomorrow PT OT Needs renal ff up as OP - was not seeing any qc manager Vitals Vitals Vital Signs Date Time Temp Pulse Resp B/P (MAP) Pulse Ox O2 Delivery O2 Flow Rate FiO2 04/05/18 10:43 97.8 68 20 108/44 (65) 100 Room Air 97.8 04/05/18 08:00 2.0 Physical Exam General: Alert, Oriented X3, Cooperative, No acute distress Heart: Regular rate, Normal S1, Normal S2 Lungs: Clear, Other Abdomen: Normal bowel sounds, Soft, No tenderness, No hepatosplenomegaly, No masses, Other (obese nontender positive fluid wave) Extremities: No clubbing, No cyanosis, Other (mild +2 pitting edema, palpable pulses) Skin: No rashes, No breakdown, No significant lesion Labs LABS Laboratory Tests Test 04/04/18 11:21 04/04/18 11:30 04/04/18 13:49 04/04/18 14:45 Urine Collection Type Unknown Urine Color Yellow Urine Clarity Clear Urine pH 5.5 Urine Specific [place] 1.015 Urine Protein Negative mg/dL (NEG-TRACE) Urine Glucose (UA) Negative mg/dL (NEG) Urine Ketones (Stick) Negative mg/dL (NEG) Urine Blood Negative (NEG) Urine Nitrite Negative (NEG) Urine Bilirubin Negative (NEG) Urine Urobilinogen Dipstick 0.2 mg/dL (0.2 mg/dL) Urine Leukocyte Esterase Negative (NEG) Urine RBC Occ /HPF (0-2) Urine WBC Occ /HPF (0-4) Urine Squamous Epithelial Cells Many /LPF Urine Bacteria Few /HPF (0-FEW) Urine Mucus Marked /LPF Urine Opiates Screen Neg (NEG) Urine Methadone Screen Neg (NEG) Urine Barbiturates Neg (NEG) Urine Phencyclidine Screen Neg (NEG) Urine Amphetamine/Methamphetamine Neg (NEG) Urine Benzodiazepines Screen Neg (NEG) Urine Cocaine Screen Neg (NEG) Urine Cannabinoids Screen Neg (NEG) Urine Ethyl Alcohol Neg (NEG) White Blood Count 5.3 x10^3/uL (4.0-11.0) Red Blood Count 3.65 x10^6/uL (3.50-5.40) Hemoglobin 11.3 g/dL (12.0-15.5) Hematocrit 33.7 % (36.0-47.0) Mean Corpuscular Volume 92 fL (79-100) Mean Corpuscular Hemoglobin 31 pg (25-35) Mean Corpuscular Hemoglobin Concent 34 g/dL (31-37) Red Cell Distribution Width 12.8 % (11.5-14.5) Platelet Count 175 x10^3/uL (140-400) Neutrophils (%) (Auto) 66 % (31-73) Lymphocytes (%) (Auto) 19 % (24-48) Monocytes (%) (Auto) 10 % (0-9) Eosinophils (%) (Auto) 5 % (0-3) Basophils (%) (Auto) 0 % (0-3) Neutrophils # (Auto) 3.5 x10^3uL (1.8-7.7) Lymphocytes # (Auto) 1.0 x10^3/uL (1.0-4.8) Monocytes # (Auto) 0.5 x10^3/uL (0.0-1.1) Eosinophils # (Auto) 0.3 x10^3/uL (0.0-0.7) Basophils # (Auto) 0.0 x10^3/uL (0.0-0.2) Prothrombin Time 12.8 SEC (11.7-14.0) Prothromb Time International Ratio 1.0 (0.8-1.1) Sodium Level 138 mmol/L (136-145) Potassium Level 4.4 mmol/L (3.5-5.1) Chloride Level 104 mmol/L (98-107) Carbon Dioxide Level 28 mmol/L (21-32) Anion Gap 6 (6-14) Blood Urea Nitrogen 30 mg/dL (7-20) Creatinine 1.8 mg/dL (0.6-1.0) Estimated GFR (Cockcroft-Gault) 32.5 BUN/Creatinine Ratio 17 (6-20) Glucose Level 206 mg/dL (70-99) Calcium Level 9.5 mg/dL (8.5-10.1) Magnesium Level 1.9 mg/dL (1.8-2.4) Total Bilirubin 0.6 mg/dL (0.2-1.0) Aspartate Amino Transf (AST/SGOT) 19 U/L (15-37) Alanine Aminotransferase (ALT/SGPT) 20 U/L (14-59) Alkaline Phosphatase 136 U/L (46-116) Creatine Kinase 123 U/L (26-192) Creatine Kinase MB (Mass) < 0.5 ng/mL (0.0-3.6) Creatine Kinase MB Relative Index % (0-4) Troponin I Quantitative < 0.017 ng/mL (0.000-0.055) < 0.017 ng/mL (0.000-0.055) FR-Rum-Z-Type Natriuretic Peptide 1824 pg/mL (0-449) Total Protein 7.3 g/dL (6.4-8.2) Albumin 3.4 g/dL (3.4-5.0) Albumin/Globulin Ratio 0.9 (1.0-1.7) Glucose (Fingerstick) 169 mg/dL (70-99) Test 04/04/18 16:43 04/04/18 17:30 04/04/18 21:26 04/05/18 03:40 Glucose (Fingerstick) 204 mg/dL (70-99) 205 mg/dL (70-99) Troponin I Quantitative < 0.017 ng/mL (0.000-0.055) White Blood Count 5.5 x10^3/uL (4.0-11.0) Red Blood Count 3.24 x10^6/uL (3.50-5.40) Hemoglobin 10.3 g/dL (12.0-15.5) Hematocrit 29.8 % (36.0-47.0) Mean Corpuscular Volume 92 fL (79-100) Mean Corpuscular Hemoglobin 32 pg (25-35) Mean Corpuscular Hemoglobin Concent 34 g/dL (31-37) Red Cell Distribution Width 13.2 % (11.5-14.5) Platelet Count 163 x10^3/uL (140-400) Neutrophils (%) (Auto) 61 % (31-73) Lymphocytes (%) (Auto) 22 % (24-48) Monocytes (%) (Auto) 12 % (0-9) Eosinophils (%) (Auto) 5 % (0-3) Basophils (%) (Auto) 0 % (0-3) Neutrophils # (Auto) 3.3 x10^3uL (1.8-7.7) Lymphocytes # (Auto) 1.2 x10^3/uL (1.0-4.8) Monocytes # (Auto) 0.6 x10^3/uL (0.0-1.1) Eosinophils # (Auto) 0.3 x10^3/uL (0.0-0.7) Basophils # (Auto) 0.0 x10^3/uL (0.0-0.2) Sodium Level 139 mmol/L (136-145) Potassium Level 4.3 mmol/L (3.5-5.1) Chloride Level 104 mmol/L (98-107) Carbon Dioxide Level 31 mmol/L (21-32) Anion Gap 4 (6-14) Blood Urea Nitrogen 35 mg/dL (7-20) Creatinine 2.1 mg/dL (0.6-1.0) Estimated GFR (Cockcroft-Gault) 27.2 BUN/Creatinine Ratio 17 (6-20) Glucose Level 250 mg/dL (70-99) Calcium Level 9.2 mg/dL (8.5-10.1) Total Bilirubin 0.4 mg/dL (0.2-1.0) Aspartate Amino Transf (AST/SGOT) 14 U/L (15-37) Alanine Aminotransferase (ALT/SGPT) 19 U/L (14-59) Alkaline Phosphatase 152 U/L (46-116) Total Protein 6.8 g/dL (6.4-8.2) Albumin 3.0 g/dL (3.4-5.0) Albumin/Globulin Ratio 0.8 (1.0-1.7) Test 04/05/18 07:08 Glucose (Fingerstick) 155 mg/dL (70-99) Review of Systems Review of Systems A 14 point ROS was completed with the following noted as positive: Other systems reviewed and negative. \CONSTITUTIONAL: No fever or chills EYES: No recent changes SKIN: No rash or itching CARDIOVASCULAR: No chest pain, syncope, palpitations, or edema RESPIRATORY: No SOB or cough GASTROINTESTINAL: No nausea, vomiting or abdominal pain NEUROLOGICAL: No headaches or weakness ENDOCRINE: No cold or heat intolerance GENITOURINARY: No urgency or frequency of urination MUSCULOSKELETAL: No back pain or joint pain LYMPHATICS: No enlarged lymph nodes PSYCHIATRIC: No anxiety or depression Assessment and Plan Assessmemt and Plan Problems Medical Problems: (1) Acute on chronic renal failure Status: Acute (2) Chest pain Status: Acute Comment Review of Relevant I have reviewed the following items mina (where applicable) has been applied. Labs Laboratory Tests Test 04/04/18 11:21 04/04/18 11:30 04/04/18 13:49 04/04/18 14:45 Urine Collection Type Unknown Urine Color Yellow Urine Clarity Clear Urine pH 5.5 Urine Specific [place] 1.015 Urine Protein Negative mg/dL (NEG-TRACE) Urine Glucose (UA) Negative mg/dL (NEG) Urine Ketones (Stick) Negative mg/dL (NEG) Urine Blood Negative (NEG) Urine Nitrite Negative (NEG) Urine Bilirubin Negative (NEG) Urine Urobilinogen Dipstick 0.2 mg/dL (0.2 mg/dL) Urine Leukocyte Esterase Negative (NEG) Urine RBC Occ /HPF (0-2) Urine WBC Occ /HPF (0-4) Urine Squamous Epithelial Cells Many /LPF Urine Bacteria Few /HPF (0-FEW) Urine Mucus Marked /LPF Urine Opiates Screen Neg (NEG) Urine Methadone Screen Neg (NEG) Urine Barbiturates Neg (NEG) Urine Phencyclidine Screen Neg (NEG) Urine Amphetamine/Methamphetamine Neg (NEG) Urine Benzodiazepines Screen Neg (NEG) Urine Cocaine Screen Neg (NEG) Urine Cannabinoids Screen Neg (NEG) Urine Ethyl Alcohol Neg (NEG) White Blood Count 5.3 x10^3/uL (4.0-11.0) Red Blood Count 3.65 x10^6/uL (3.50-5.40) Hemoglobin 11.3 g/dL (12.0-15.5) Hematocrit 33.7 % (36.0-47.0) Mean Corpuscular Volume 92 fL (79-100) Mean Corpuscular Hemoglobin 31 pg (25-35) Mean Corpuscular Hemoglobin Concent 34 g/dL (31-37) Red Cell Distribution Width 12.8 % (11.5-14.5) Platelet Count 175 x10^3/uL (140-400) Neutrophils (%) (Auto) 66 % (31-73) Lymphocytes (%) (Auto) 19 % (24-48) Monocytes (%) (Auto) 10 % (0-9) Eosinophils (%) (Auto) 5 % (0-3) Basophils (%) (Auto) 0 % (0-3) Neutrophils # (Auto) 3.5 x10^3uL (1.8-7.7) Lymphocytes # (Auto) 1.0 x10^3/uL (1.0-4.8) Monocytes # (Auto) 0.5 x10^3/uL (0.0-1.1) Eosinophils # (Auto) 0.3 x10^3/uL (0.0-0.7) Basophils # (Auto) 0.0 x10^3/uL (0.0-0.2) Prothrombin Time 12.8 SEC (11.7-14.0) Prothromb Time International Ratio 1.0 (0.8-1.1) Sodium Level 138 mmol/L (136-145) Potassium Level 4.4 mmol/L (3.5-5.1) Chloride Level 104 mmol/L (98-107) Carbon Dioxide Level 28 mmol/L (21-32) Anion Gap 6 (6-14) Blood Urea Nitrogen 30 mg/dL (7-20) Creatinine 1.8 mg/dL (0.6-1.0) Estimated GFR (Cockcroft-Gault) 32.5 BUN/Creatinine Ratio 17 (6-20) Glucose Level 206 mg/dL (70-99) Calcium Level 9.5 mg/dL (8.5-10.1) Magnesium Level 1.9 mg/dL (1.8-2.4) Total Bilirubin 0.6 mg/dL (0.2-1.0) Aspartate Amino Transf (AST/SGOT) 19 U/L (15-37) Alanine Aminotransferase (ALT/SGPT) 20 U/L (14-59) Alkaline Phosphatase 136 U/L (46-116) Creatine Kinase 123 U/L (26-192) Creatine Kinase MB (Mass) < 0.5 ng/mL (0.0-3.6) Creatine Kinase MB Relative Index % (0-4) Troponin I Quantitative < 0.017 ng/mL (0.000-0.055) < 0.017 ng/mL (0.000-0.055) SK-Meo-X-Type Natriuretic Peptide 1824 pg/mL (0-449) Total Protein 7.3 g/dL (6.4-8.2) Albumin 3.4 g/dL (3.4-5.0) Albumin/Globulin Ratio 0.9 (1.0-1.7) Glucose (Fingerstick) 169 mg/dL (70-99) Test 04/04/18 16:43 04/04/18 17:30 04/04/18 21:26 04/05/18 03:40 Glucose (Fingerstick) 204 mg/dL (70-99) 205 mg/dL (70-99) Troponin I Quantitative < 0.017 ng/mL (0.000-0.055) White Blood Count 5.5 x10^3/uL (4.0-11.0) Red Blood Count 3.24 x10^6/uL (3.50-5.40) Hemoglobin 10.3 g/dL (12.0-15.5) Hematocrit 29.8 % (36.0-47.0) Mean Corpuscular Volume 92 fL (79-100) Mean Corpuscular Hemoglobin 32 pg (25-35) Mean Corpuscular Hemoglobin Concent 34 g/dL (31-37) Red Cell Distribution Width 13.2 % (11.5-14.5) Platelet Count 163 x10^3/uL (140-400) Neutrophils (%) (Auto) 61 % (31-73) Lymphocytes (%) (Auto) 22 % (24-48) Monocytes (%) (Auto) 12 % (0-9) Eosinophils (%) (Auto) 5 % (0-3) Basophils (%) (Auto) 0 % (0-3) Neutrophils # (Auto) 3.3 x10^3uL (1.8-7.7) Lymphocytes # (Auto) 1.2 x10^3/uL (1.0-4.8) Monocytes # (Auto) 0.6 x10^3/uL (0.0-1.1) Eosinophils # (Auto) 0.3 x10^3/uL (0.0-0.7) Basophils # (Auto) 0.0 x10^3/uL (0.0-0.2) Sodium Level 139 mmol/L (136-145) Potassium Level 4.3 mmol/L (3.5-5.1) Chloride Level 104 mmol/L (98-107) Carbon Dioxide Level 31 mmol/L (21-32) Anion Gap 4 (6-14) Blood Urea Nitrogen 35 mg/dL (7-20) Creatinine 2.1 mg/dL (0.6-1.0) Estimated GFR (Cockcroft-Gault) 27.2 BUN/Creatinine Ratio 17 (6-20) Glucose Level 250 mg/dL (70-99) Calcium Level 9.2 mg/dL (8.5-10.1) Total Bilirubin 0.4 mg/dL (0.2-1.0) Aspartate Amino Transf (AST/SGOT) 14 U/L (15-37) Alanine Aminotransferase (ALT/SGPT) 19 U/L (14-59) Alkaline Phosphatase 152 U/L (46-116) Total Protein 6.8 g/dL (6.4-8.2) Albumin 3.0 g/dL (3.4-5.0) Albumin/Globulin Ratio 0.8 (1.0-1.7) Test 04/05/18 07:08 Glucose (Fingerstick) 155 mg/dL (70-99) Laboratory Tests Test 04/04/18 11:21 04/04/18 11:30 04/04/18 13:49 04/04/18 14:45 Urine Collection Type Unknown Urine Color Yellow Urine Clarity Clear Urine pH 5.5 Urine Specific [place] 1.015 Urine Protein Negative mg/dL (NEG-TRACE) Urine Glucose (UA) Negative mg/dL (NEG) Urine Ketones (Stick) Negative mg/dL (NEG) Urine Blood Negative (NEG) Urine Nitrite Negative (NEG) Urine Bilirubin Negative (NEG) Urine Urobilinogen Dipstick 0.2 mg/dL (0.2 mg/dL) Urine Leukocyte Esterase Negative (NEG) Urine RBC Occ /HPF (0-2) Urine WBC Occ /HPF (0-4) Urine Squamous Epithelial Cells Many /LPF Urine Bacteria Few /HPF (0-FEW) Urine Mucus Marked /LPF Urine Opiates Screen Neg (NEG) Urine Methadone Screen Neg (NEG) Urine Barbiturates Neg (NEG) Urine Phencyclidine Screen Neg (NEG) Urine Amphetamine/Methamphetamine Neg (NEG) Urine Benzodiazepines Screen Neg (NEG) Urine Cocaine Screen Neg (NEG) Urine Cannabinoids Screen Neg (NEG) Urine Ethyl Alcohol Neg (NEG) White Blood Count 5.3 x10^3/uL (4.0-11.0) Red Blood Count 3.65 x10^6/uL (3.50-5.40) Hemoglobin 11.3 g/dL (12.0-15.5) Hematocrit 33.7 % (36.0-47.0) Mean Corpuscular Volume 92 fL (79-100) Mean Corpuscular Hemoglobin 31 pg (25-35) Mean Corpuscular Hemoglobin Concent 34 g/dL (31-37) Red Cell Distribution Width 12.8 % (11.5-14.5) Platelet Count 175 x10^3/uL (140-400) Neutrophils (%) (Auto) 66 % (31-73) Lymphocytes (%) (Auto) 19 % (24-48) Monocytes (%) (Auto) 10 % (0-9) Eosinophils (%) (Auto) 5 % (0-3) Basophils (%) (Auto) 0 % (0-3) Neutrophils # (Auto) 3.5 x10^3uL (1.8-7.7) Lymphocytes # (Auto) 1.0 x10^3/uL (1.0-4.8) Monocytes # (Auto) 0.5 x10^3/uL (0.0-1.1) Eosinophils # (Auto) 0.3 x10^3/uL (0.0-0.7) Basophils # (Auto) 0.0 x10^3/uL (0.0-0.2) Prothrombin Time 12.8 SEC (11.7-14.0) Prothromb Time International Ratio 1.0 (0.8-1.1) Sodium Level 138 mmol/L (136-145) Potassium Level 4.4 mmol/L (3.5-5.1) Chloride Level 104 mmol/L (98-107) Carbon Dioxide Level 28 mmol/L (21-32) Anion Gap 6 (6-14) Blood Urea Nitrogen 30 mg/dL (7-20) Creatinine 1.8 mg/dL (0.6-1.0) Estimated GFR (Cockcroft-Gault) 32.5 BUN/Creatinine Ratio 17 (6-20) Glucose Level 206 mg/dL (70-99) Calcium Level 9.5 mg/dL (8.5-10.1) Magnesium Level 1.9 mg/dL (1.8-2.4) Total Bilirubin 0.6 mg/dL (0.2-1.0) Aspartate Amino Transf (AST/SGOT) 19 U/L (15-37) Alanine Aminotransferase (ALT/SGPT) 20 U/L (14-59) Alkaline Phosphatase 136 U/L (46-116) Creatine Kinase 123 U/L (26-192) Creatine Kinase MB (Mass) < 0.5 ng/mL (0.0-3.6) Creatine Kinase MB Relative Index % (0-4) Troponin I Quantitative < 0.017 ng/mL (0.000-0.055) < 0.017 ng/mL (0.000-0.055) SM-Cka-D-Type Natriuretic Peptide 1824 pg/mL (0-449) Total Protein 7.3 g/dL (6.4-8.2) Albumin 3.4 g/dL (3.4-5.0) Albumin/Globulin Ratio 0.9 (1.0-1.7) Glucose (Fingerstick) 169 mg/dL (70-99) Test 04/04/18 16:43 04/04/18 17:30 04/04/18 21:26 04/05/18 03:40 Glucose (Fingerstick) 204 mg/dL (70-99) 205 mg/dL (70-99) Troponin I Quantitative < 0.017 ng/mL (0.000-0.055) White Blood Count 5.5 x10^3/uL (4.0-11.0) Red Blood Count 3.24 x10^6/uL (3.50-5.40) Hemoglobin 10.3 g/dL (12.0-15.5) Hematocrit 29.8 % (36.0-47.0) Mean Corpuscular Volume 92 fL (79-100) Mean Corpuscular Hemoglobin 32 pg (25-35) Mean Corpuscular Hemoglobin Concent 34 g/dL (31-37) Red Cell Distribution Width 13.2 % (11.5-14.5) Platelet Count 163 x10^3/uL (140-400) Neutrophils (%) (Auto) 61 % (31-73) Lymphocytes (%) (Auto) 22 % (24-48) Monocytes (%) (Auto) 12 % (0-9) Eosinophils (%) (Auto) 5 % (0-3) Basophils (%) (Auto) 0 % (0-3) Neutrophils # (Auto) 3.3 x10^3uL (1.8-7.7) Lymphocytes # (Auto) 1.2 x10^3/uL (1.0-4.8) Monocytes # (Auto) 0.6 x10^3/uL (0.0-1.1) Eosinophils # (Auto) 0.3 x10^3/uL (0.0-0.7) Basophils # (Auto) 0.0 x10^3/uL (0.0-0.2) Sodium Level 139 mmol/L (136-145) Potassium Level 4.3 mmol/L (3.5-5.1) Chloride Level 104 mmol/L (98-107) Carbon Dioxide Level 31 mmol/L (21-32) Anion Gap 4 (6-14) Blood Urea Nitrogen 35 mg/dL (7-20) Creatinine 2.1 mg/dL (0.6-1.0) Estimated GFR (Cockcroft-Gault) 27.2 BUN/Creatinine Ratio 17 (6-20) Glucose Level 250 mg/dL (70-99) Calcium Level 9.2 mg/dL (8.5-10.1) Total Bilirubin 0.4 mg/dL (0.2-1.0) Aspartate Amino Transf (AST/SGOT) 14 U/L (15-37) Alanine Aminotransferase (ALT/SGPT) 19 U/L (14-59) Alkaline Phosphatase 152 U/L (46-116) Total Protein 6.8 g/dL (6.4-8.2) Albumin 3.0 g/dL (3.4-5.0) Albumin/Globulin Ratio 0.8 (1.0-1.7) Test 04/05/18 07:08 Glucose (Fingerstick) 155 mg/dL (70-99) Medications Current Medications Ondansetron HCl (Zofran) 4 mg PRN Q6HRS PRN IV NAUSEA/VOMITING 1ST CHOICE; Start 04/04/18 at 12:30 Prochlorperazine Edisylate (Compazine) 10 mg PRN Q6HRS PRN IV NAUSEA/VOMITING 2ND CHOICE; Start 04/04/18 at 12:30 Prochlorperazine (Compazine) 25 mg PRN Q12HR PRN ND NAUSEA/VOMITING; Start at 12:30 Al Hydroxide/Mg Hydroxide (Mylanta Plus Xs) 30 ml PRN Q3HRS PRN PO HEARTBURN / GAS Last administered on 04/04/18at 22:58; Start 04/04/18 at 12:30 Calcium Carbonate/ Glycine (Tums) 500 mg PRN Q3HRS PRN PO UPSET STOMACH; Start 04/04/18 at 12:30 Oxycodone HCl (Roxicodone) 5 mg PRN Q3HRS PRN PO SEVERE PAIN; Start 04/04/18 at 12:30 Morphine Sulfate (Morphine Sulfate) 1 mg PRN Q1HR PRN IV PAIN MILD; Start 04/04 at 12:30 Acetaminophen (Tylenol) 650 mg PRN Q6HRS PRN PO Headaches, Temp > 101.5F; Start 04/04/18 at 12:30 Docusate Sodium (Colace) 100 mg BID PO Last administered on 04/04/18at 21:28; Start 04/04/18 at 21:00 Magnesium Hydroxide (Milk Of Magnesia) 2,400 mg PRN Q12HR PRN PO CONSTIPATION; Start 04/04/18 at 12:30 Bisacodyl (Dulcolax Supp) 10 mg PRN DAILY PRN ND NO BOWEL MOVEMENT; Start 04/04 at 12:30 Aspirin (Children'S Aspirin) 81 mg DAILY PO Last administered on 04/05/18at 08: 34; Start 04/05/18 at 09:00 Atorvastatin Calcium (Lipitor) 40 mg QHS PO Last administered on 04/04/18at 21: 28; Start 04/04/18 at 21:00 Carvedilol (Coreg) 3.125 mg BIDWMEALS PO Last administered on 04/05/18at 08:35; Start 04/04/18 at 17:00 Colchicine (Colcrys) 0.6 mg DAILY PO ; Start 04/05/18 at 09:00 Diclofenac Sodium (Voltaren) 1 amy PRN BID PRN TP PAINFUL AREA; Start 04/04/18 at 21:00 Dicyclomine HCl (Bentyl) 10 mg TID PO Last administered on 04/05/18at 08:34; Start 04/04/18 at 14:00 Furosemide (Lasix) 40 mg DAILY PO Last administered on 04/05/18at 08:34; Start 04/05/18 at 09:00 Acetaminophen/ Hydrocodone Bitart (Lortab 5/325) 1 tab PRN Q6HRS PRN PO PAIN MILD; Start 04/04/18 at 12:30 Albuterol/ Ipratropium (Duoneb) 3 ml RTBID NEB ; Start 04/04/18 at 20:00 Mupirocin (Bactroban) 1 amy TID PRN TP PAIN; Start 04/04/18 at 12:30; Status UNV Nitroglycerin (Nitrostat) 0.4 mg PRN Q5MIN PRN SL CHEST PAIN Last administered on 04/04/18at 22:57; Start 04/04/18 at 12:30 Ticagrelor (Brilinta) 90 mg BID PO Last administered on 04/05/18at 08:34; Start 04/04/18 at 21:00 Benzonatate (Tessalon Perle) 100 mg PRN TID PRN PO COUGH 1ST CHOICE; Start at 14:00 Gabapentin (Neurontin) 300 mg DAILY PO Last administered on 04/05/18at 08:34; Start 04/05/18 at 09:00 Glipizide (Glucotrol) 5 mg BIDBFRMEAL PO Last administered on 04/04/18at 17:18; Start 04/04/18 at 16:30 Pantoprazole Sodium (Protonix) 40 mg DAILYAC PO Last administered on 04/05/18at 08:34; Start 04/05/18 at 07:30 Polyethylene Glycol (miraLAX PACKET) 17 gm PRN DAILY PRN PO CONSTIPATION 1ST CHOICE; Start 04/05/18 at 09:00 Non-Formulary Medication (Prednisone ) 50 mg DAILY PO ; Start 04/05/18 at 09:00 ; Status UNV Tizanidine HCl (Zanaflex) 4 mg PRN TID PRN PO MUSCLE SPASMS; Start 04/04/18 at 13:00; Stop 04/04/18 at 13:00; Status DC Insulin Glargine (Lantus) 30 units QHS SQ Last administered on 04/04/18at 21:33 ; Start 04/04/18 at 21:00 Insulin Human Lispro (HumaLOG) 0-9 UNITS TIDWMEALS SQ Last administered on 04/04at 17:35; Start 04/04/18 at 17:00 Dextrose (Dextrose 50%-Water Syringe) 12.5 gm PRN Q15MIN PRN IV SEE COMMENTS; Start 04/04/18 at 12:30 Tizanidine HCl (Zanaflex) 4 mg PRN QID PRN PO MUSCLE SPASMS; Start 04/04/18 at 13:00 Ondansetron HCl (Zofran) 4 mg PRN Q8HRS PRN IV NAUSEA/VOMITING; Start 04/04/18 at 13:00; Stop 04/05/18 at 12:59 Fentanyl Citrate (Fentanyl 2ml Vial) 50 mcg PRN Q2HR PRN IV PAIN; Start at 13:00; Stop 04/05/18 at 12:59 Nitroglycerin (Nitrostat) 0.4 mg PRN Q5MIN PRN SL CHEST PAIN; Start 04/04/18 at 13:00; Stop 04/05/18 at 12:59 Furosemide (Lasix) 40 mg 1X ONCE IVP Last administered on 04/04/18at 17:19; Start 04/04/18 at 13:30; Stop 04/04/18 at 13:31; Status DC Morphine Sulfate (Morphine Sulfate) 2 mg 1X ONCE IV Last administered on at 17:19; Start 04/04/18 at 13:30; Stop 04/04/18 at 13:31; Status DC Morphine Sulfate (Morphine Sulfate) 2 mg PRN Q2HR PRN IV PAIN; Start 04/04/18 at 13:30 Cetirizine HCl (ZyrTEC) 10 mg DAILY PO Last administered on 04/04/18at 17:18; Start 04/04/18 at 13:30 Albuterol/ Ipratropium (Duoneb) 3 ml RTQID NEB Last administered on 04/04/18at 15:30; Start 04/04/18 at 16:00 Guaifenesin (Robitussin Dm) 10 ml QID PO Last administered on 04/04/18at 21:28; Start 04/04/18 at 17:00 Simethicone (Gas-X) 80 mg PRN AFTMEALHC PRN PO GAS / BLOATING Last administered on 04/04/18at 17:18; Start 04/04/18 at 16:30 Active Scripts Active [place] 5-325 Tablet (Acetaminophen/Hydrocodone Bitart) 1 Each Tablet 1-2 Tab PO Q4-6HRS Prednisone 50 Mg Tablet 50 Mg PO DAILY 5 Days [place] 5-325 Tablet (Acetaminophen/Hydrocodone Bitart) 1 Each Tablet 1 Tab PO PRN Q6HRS PRN Colcrys (Colchicine) 0.6 Mg Tablet 0.6 Mg PO EVERY HOUR PRN Take 1 pill every hour by mouth as needed for an acute gout attack up to 5 doses. Stop if you have nausea or stomach irritation. Brilinta (Ticagrelor) 90 Mg Tablet 90 Mg PO BID Duoneb 0.5-3(2.5) Mg/3 Ml (Albuterol/Ipratropium) 3 Ml Ampul.neb 3 Ml NEB BID Atorvastatin Calcium 40 Mg Tablet 40 Mg PO QHS Reported Furosemide 40 Mg Tablet 1 Tab PO DAILY Coreg (Carvedilol) 3.125 Mg Tablet 1 Tab PO BID Glipizide 10 Mg Tablet 0.5 Tab PO BID Omeprazole 40 Mg Capsule.dr 1 Cap PO DAILY Benzonatate 100 Mg Capsule 100 Mg PO PRN TID Gabapentin 300 Mg Capsule 300 PO DAILY Tizanidine Hcl 2 Mg Capsule 2 Mg PO QID PRN NITROGLYCERIN SubLingual (Nitroglycerin) 0.4 Mg Tab.subl 0.4 Mg SL PRN Q5MIN PRN Voltaren (Diclofenac Sodium) 100 Gm Gel..gram. 2 Gm TP BID PRN Lantus (Insulin Glargine,Hum.rec.anlog) 100 Unit/1 Ml Vial 30 Unit SQ Mupirocin Ointment (Mupirocin) 22 Gm Oint...g. 1 Amy TP TID PRN Aspirin 81 Mg Tab.chew 1 Tab PO DAILY Dicyclomine Hcl 10 Mg Capsule 1 Cap PO TID Miralax (Polyethylene Glycol 3350) 17 Gm Powd.pack 1 Packet PO DAILY PRN Vitals/I & O Vital Sign - Last 24 Hours 04/04/18 04/04/18 04/04/18 04/04/18 13:30 14:53 15:31 17:18 Temp 98.0 98.0 Pulse 72 74 74 Resp 20 20 B/P (MAP) 106/77 (87) 110/79 (89) 110/79 Pulse Ox 94 95 92 O2 Delivery Nasal Cannula Room Air O2 Flow Rate 2.0 04/04/18 04/04/18 04/04/18 04/04/18 17:19 17:49 18:03 19:00 Temp 97.5 97.5 Pulse 72 Resp 20 B/P (MAP) 98/56 (70) Pulse Ox 96 O2 Delivery Nasal Cannula Nasal Cannula Nasal Cannula Room Air O2 Flow Rate 2.0 2.0 2.0 04/04/18 04/04/18 04/04/18 04/05/18 20:00 22:57 23:00 03:00 Temp 97.8 98.2 97.8 98.2 Pulse 74 75 71 Resp 20 20 B/P (MAP) 109/66 109/66 (80) 104/48 (66) Pulse Ox 100 98 O2 Delivery Nasal Cannula Room Air Room Air O2 Flow Rate 2.0 2.0 04/05/18 04/05/18 04/05/18 04/05/18 07:00 08:00 08:35 10:43 Temp 97.8 97.8 97.8 97.8 Pulse 69 69 68 Resp 20 20 B/P (MAP) 115/44 (67) 115/74 108/44 (65) Pulse Ox 98 100 O2 Delivery Room Air Nasal Cannula Room Air O2 Flow Rate 2.0 Intake and Output 04/04/18 04/04/18 04/05/18 15:00 23:00 07:00 Intake Total 1400 ml 200 ml Balance 1400 ml 200 ml IDALIA ABERNATHY MD Apr 05, 2018 10:55
--- NOTE | 2018-04-05 11:00 | PDOC2 ---
DOMINIK FISCHER FIELD GEOLOGIST 04/05/18 1100: CARDIAC CONSULT DATE OF CONSULT Date of Consult DATE: 04/05/18 TIME: 10:55 REASON FOR CONSULT Reason for Consult: Chest pain REFERRING PHYSICIAN Referring Physician: Semaj SOURCE Source: Chart review, Patient HISTORY OF PRESENT ILLNESS HISTORY OF PRESENT ILLNESS 83 year old female with a known history of CAD and multiple previous interventions admitted through ER with c/o chest pain after taking out the garbage yesterday morning. Described as chest being "squeezed" and associated with dyspnea and diaphoresis. Pain not relieved with rest and eventually took 3 doses of SL NTG with resolution of symptoms. Reports recent LE edema and 3 - 4 # weight gain as well. C/O sensation of "fluid building up. " Hospitalized @ [facility] 12/2017 for similar symptoms; no indication she underwent PCI during that hospital stay. Possible also recent stay @ though details are unclear. Usually follows with Nathalia @ but can not say when she last saw him. Cath done here last fall demonstrated patent stents. EKG without acute changes and troponin levels not consistent with AMI. NT-proBNP 1824 in the setting of CKD with Cr of 2. Seen in hospital room and comfortable in a recliner. Reason for Visit: chest pain PAST MEDICAL HISTORY Past Medical History Cardiovascular: CAD (NSTEMI 05/2016 with PCI/TRINITY to LAD and RCA; STEMI treated at - 06/2016 with total occlusion of both existing stents; aspiration thrombectomy - TRINITY to existing LAD and POBA to RCA; discharged on ASA and Brilinta), CHF, HTN, Hyperlipidemia, ICD for ischemic cardiomyopathy - brand unknown Pulmonary: Asthma, Other (pulmonary embolus after abdominal surgery - 1973) CENTRAL NERVOUS SYSTEM: Other (none) GI: GERD Heme/Onc: Anemia NOS Hepatobiliary: No pertinent hx Psych: No pertinent hx Musculoskeletal: Osteoarthritis Rheumatologic: No pertinent hx Infectious disease: No pertinent hx ENT: No pertinent hx Renal/: CKD Endocrine: Diabetes, Hypothyroidism Dermatology: No pertinent hx PAST SURGICAL HISTORY Past Surgical History Appendectomy, Cholecystectomy, Cataract Removal, Other (exp lap due to ectopic pregnancies), ICD FAMILY HISTORY Family History: Family History Unknown SOCIAL HISTORY Smoke: No ALCOHOL: none Drugs: None CURRENT MEDICATIONS CURRENT MEDICATIONS Current Medications Medications (Trade) Dose Ordered Sig/Leena Route PRN Reason Start Time Stop Time Status Last Admin Dose Admin Al Hydroxide/Mg Hydroxide (Mylanta Plus Xs) 30 ml PRN Q3HRS PRN PO HEARTBURN / GAS 04/04/18 12:30 04/04/18 22:58 Docusate Sodium (Colace) 100 mg BID PO 04/04/18 21:00 04/04/18 21:28 Aspirin (Children'S Aspirin) 81 mg DAILY PO 04/05/18 09:00 04/05/18 08:34 Atorvastatin Calcium (Lipitor) 40 mg QHS PO 04/04/18 21:00 04/04/18 21:28 Carvedilol (Coreg) 3.125 mg BIDWMEALS PO 04/04/18 17:00 04/05/18 08:35 Dicyclomine HCl (Bentyl) 10 mg TID PO 04/04/18 14:00 04/05/18 08:34 Furosemide (Lasix) 40 mg DAILY PO 04/05/18 09:00 04/05/18 08:34 Nitroglycerin (Nitrostat) 0.4 mg PRN Q5MIN PRN SL CHEST PAIN 04/04/18 12:30 04/04/18 22:57 Ticagrelor (Brilinta) 90 mg BID PO 04/04/18 21:00 04/05/18 08:34 Gabapentin (Neurontin) 300 mg DAILY PO 04/05/18 09:00 04/05/18 08:34 Glipizide (Glucotrol) 5 mg BIDBFRMEAL PO 04/04/18 16:30 04/04/18 17:18 Pantoprazole Sodium (Protonix) 40 mg DAILYAC PO 04/05/18 07:30 04/05/18 08:34 Insulin Glargine (Lantus) 30 units QHS SQ 04/04/18 21:00 04/04/18 21:33 Insulin Human Lispro (HumaLOG) 0-9 UNITS TIDWMEALS SQ 04/04/18 17:00 04/04/18 17:35 Furosemide (Lasix) 40 mg 1X ONCE IVP 04/04/18 13:30 04/04/18 13:31 DC 04/04/18 17:19 Morphine Sulfate (Morphine Sulfate) 2 mg 1X ONCE IV 04/04/18 13:30 04/04/18 13:31 DC 04/04/18 17:19 Cetirizine HCl (ZyrTEC) 10 mg DAILY PO 04/04/18 13:30 04/04/18 17:18 Albuterol/ Ipratropium (Duoneb) 3 ml RTQID NEB 04/04/18 16:00 04/04/18 15:30 Guaifenesin (Robitussin Dm) 10 ml QID PO 04/04/18 17:00 04/04/18 21:28 Simethicone (Gas-X) 80 mg PRN AFTMEALHC PRN PO GAS / BLOATING 04/04/18 16:30 04/04/18 17:18 ALLERGIES ALLERGIES: Coded Allergies: metformin (Verified Allergy, Intermediate, 02/11/17) tramadol (Verified Allergy, Intermediate, 06/26/16) ROS Review of System 14 point review with pertinent positives in HPI PHYSICAL EXAM General: Alert, Oriented X3, Cooperative, No acute distress HEENT: Atraumatic Lungs: Clear to auscultation (posteriorly) Heart: Normal S1, Normal S2, No murmurs, Other (left pectoral ICD pocket) Abdomen: Soft, No tenderness, Other (obese abdomen) Extremities: No edema Skin: No rashes Neuro: Normal speech Psych/Mental Status: Mental status NL, Mood NL MUSCULOSKELETAL: Osteoarthritic changes both hands VITALS VITALS Vital Signs Date Time Temp Pulse Resp B/P (MAP) Pulse Ox O2 Delivery O2 Flow Rate FiO2 04/05/18 10:43 97.8 68 20 108/44 (65) 100 Room Air 97.8 04/05/18 08:00 2.0 LABS Lab: Laboratory Tests Test 04/04/18 11:21 04/04/18 11:30 04/04/18 13:49 04/04/18 14:45 Urine Collection Type Unknown Urine Color Yellow Urine Clarity Clear Urine pH 5.5 Urine Specific Hallam 1.015 Urine Protein Negative mg/dL (NEG-TRACE) Urine Glucose (UA) Negative mg/dL (NEG) Urine Ketones (Stick) Negative mg/dL (NEG) Urine Blood Negative (NEG) Urine Nitrite Negative (NEG) Urine Bilirubin Negative (NEG) Urine Urobilinogen Dipstick 0.2 mg/dL (0.2 mg/dL) Urine Leukocyte Esterase Negative (NEG) Urine RBC Occ /HPF (0-2) Urine WBC Occ /HPF (0-4) Urine Squamous Epithelial Cells Many /LPF Urine Bacteria Few /HPF (0-FEW) Urine Mucus Marked /LPF Urine Opiates Screen Neg (NEG) Urine Methadone Screen Neg (NEG) Urine Barbiturates Neg (NEG) Urine Phencyclidine Screen Neg (NEG) Urine Amphetamine/Methamphetamine Neg (NEG) Urine Benzodiazepines Screen Neg (NEG) Urine Cocaine Screen Neg (NEG) Urine Cannabinoids Screen Neg (NEG) Urine Ethyl Alcohol Neg (NEG) White Blood Count 5.3 x10^3/uL (4.0-11.0) Red Blood Count 3.65 x10^6/uL (3.50-5.40) Hemoglobin 11.3 g/dL (12.0-15.5) Hematocrit 33.7 % (36.0-47.0) Mean Corpuscular Volume 92 fL (79-100) Mean Corpuscular Hemoglobin 31 pg (25-35) Mean Corpuscular Hemoglobin Concent 34 g/dL (31-37) Red Cell Distribution Width 12.8 % (11.5-14.5) Platelet Count 175 x10^3/uL (140-400) Neutrophils (%) (Auto) 66 % (31-73) Lymphocytes (%) (Auto) 19 % (24-48) Monocytes (%) (Auto) 10 % (0-9) Eosinophils (%) (Auto) 5 % (0-3) Basophils (%) (Auto) 0 % (0-3) Neutrophils # (Auto) 3.5 x10^3uL (1.8-7.7) Lymphocytes # (Auto) 1.0 x10^3/uL (1.0-4.8) Monocytes # (Auto) 0.5 x10^3/uL (0.0-1.1) Eosinophils # (Auto) 0.3 x10^3/uL (0.0-0.7) Basophils # (Auto) 0.0 x10^3/uL (0.0-0.2) Prothrombin Time 12.8 SEC (11.7-14.0) Prothromb Time International Ratio 1.0 (0.8-1.1) Sodium Level 138 mmol/L (136-145) Potassium Level 4.4 mmol/L (3.5-5.1) Chloride Level 104 mmol/L (98-107) Carbon Dioxide Level 28 mmol/L (21-32) Anion Gap 6 (6-14) Blood Urea Nitrogen 30 mg/dL (7-20) Creatinine 1.8 mg/dL (0.6-1.0) Estimated GFR (Cockcroft-Gault) 32.5 BUN/Creatinine Ratio 17 (6-20) Glucose Level 206 mg/dL (70-99) Calcium Level 9.5 mg/dL (8.5-10.1) Magnesium Level 1.9 mg/dL (1.8-2.4) Total Bilirubin 0.6 mg/dL (0.2-1.0) Aspartate Amino Transf (AST/SGOT) 19 U/L (15-37) Alanine Aminotransferase (ALT/SGPT) 20 U/L (14-59) Alkaline Phosphatase 136 U/L (46-116) Creatine Kinase 123 U/L (26-192) Creatine Kinase MB (Mass) < 0.5 ng/mL (0.0-3.6) Creatine Kinase MB Relative Index % (0-4) Troponin I Quantitative < 0.017 ng/mL (0.000-0.055) < 0.017 ng/mL (0.000-0.055) RZ-Spi-N-Type Natriuretic Peptide 1824 pg/mL (0-449) Total Protein 7.3 g/dL (6.4-8.2) Albumin 3.4 g/dL (3.4-5.0) Albumin/Globulin Ratio 0.9 (1.0-1.7) Glucose (Fingerstick) 169 mg/dL (70-99) Test 04/04/18 16:43 04/04/18 17:30 04/04/18 21:26 04/05/18 03:40 Glucose (Fingerstick) 204 mg/dL (70-99) 205 mg/dL (70-99) Troponin I Quantitative < 0.017 ng/mL (0.000-0.055) White Blood Count 5.5 x10^3/uL (4.0-11.0) Red Blood Count 3.24 x10^6/uL (3.50-5.40) Hemoglobin 10.3 g/dL (12.0-15.5) Hematocrit 29.8 % (36.0-47.0) Mean Corpuscular Volume 92 fL (79-100) Mean Corpuscular Hemoglobin 32 pg (25-35) Mean Corpuscular Hemoglobin Concent 34 g/dL (31-37) Red Cell Distribution Width 13.2 % (11.5-14.5) Platelet Count 163 x10^3/uL (140-400) Neutrophils (%) (Auto) 61 % (31-73) Lymphocytes (%) (Auto) 22 % (24-48) Monocytes (%) (Auto) 12 % (0-9) Eosinophils (%) (Auto) 5 % (0-3) Basophils (%) (Auto) 0 % (0-3) Neutrophils # (Auto) 3.3 x10^3uL (1.8-7.7) Lymphocytes # (Auto) 1.2 x10^3/uL (1.0-4.8) Monocytes # (Auto) 0.6 x10^3/uL (0.0-1.1) Eosinophils # (Auto) 0.3 x10^3/uL (0.0-0.7) Basophils # (Auto) 0.0 x10^3/uL (0.0-0.2) Sodium Level 139 mmol/L (136-145) Potassium Level 4.3 mmol/L (3.5-5.1) Chloride Level 104 mmol/L (98-107) Carbon Dioxide Level 31 mmol/L (21-32) Anion Gap 4 (6-14) Blood Urea Nitrogen 35 mg/dL (7-20) Creatinine 2.1 mg/dL (0.6-1.0) Estimated GFR (Cockcroft-Gault) 27.2 BUN/Creatinine Ratio 17 (6-20) Glucose Level 250 mg/dL (70-99) Calcium Level 9.2 mg/dL (8.5-10.1) Total Bilirubin 0.4 mg/dL (0.2-1.0) Aspartate Amino Transf (AST/SGOT) 14 U/L (15-37) Alanine Aminotransferase (ALT/SGPT) 19 U/L (14-59) Alkaline Phosphatase 152 U/L (46-116) Total Protein 6.8 g/dL (6.4-8.2) Albumin 3.0 g/dL (3.4-5.0) Albumin/Globulin Ratio 0.8 (1.0-1.7) Test 04/05/18 07:08 Glucose (Fingerstick) 155 mg/dL (70-99) IMAGES IMAGES no CXR for review EKG EKG SINUS RHYTHM NON-SPECIFIC ST/T CHANGES ECHOCARDIOGRAM ECHOCARDIOGRAM 06/24/2018: The Ejection Fraction is 25-30%. The mid to distal anterior wall, apex and septum are severely hypokinetic to akinetic. Tissue Doppler imaging reveals severe left ventricular diastolic dysfunction. HEART CATH HEART CATH 05/2017: CORONARY ANGIOGRAPHY: LM is a large caliber vessel with normal angiographic appearance. LAD is a large caliber vessel with mild luminal irregularities, a mid stent with 20% diffuse ISR and a small caliber distal vessel. D1/D2 are small caliber vessels with mild luminal irregularities. LCx is a moderate caliber non-dominant vessel with an ostial to proximal 50% stenosis (unchanged from prior angiogram). OM1 is a small to moderate caliber vessel with mild luminal irregularities. RCA is a moderate caliber dominant vessel with a patent ostial/proximal stent, a patent mid stent and mild diffuse irregularities of the distal vessel of up to 20%. RPDA and RPL are small caliber vessels with normal angiographic appearance. Conclusion 1. Normal LVEDP 2. Three vessel coronary artery disease with patent stents in the LAD/RCA, overall disease burden and lesion appearance unchanged from prior angiogram. Recommendations Aggressive Medical Therapy ASSESSMENT/PLAN ASSESSMENT/PLAN 1. chest pain with known CAD --request records from [facility] and [facility] --most recent cath results above -- patent stents --repeat TTE to evaluate LVEF --can not uptitrate BB due to low normotensive BP --continue anti-platelet (ticagrelor) --will add Imdur at bedtime in effort to alleviate symptoms --no further planned evaluation at this time --recommend f/u with usual roustabout head @ [facility] in the next 7 - 10 days after discharge 2. ischemic cardiomyopathy --requesting records to determine brand of ICD; if can determine, will interrogate --continue BB and diuretics 3. chronic systolic HF (HFrEF) --NT-proBNP not greatly elevated when age adjusted and in the setting of CKD ; no CXR for evaluation --clinically compensated this a.m. --repeat TTE to eval LVEF --continue usual management+ 4. DM, II --defer to primary service 5. CKD --per nephrology SRUTHI COWAN MD 04/05/18 2793: CARDIAC CONSULT ASSESSMENT/PLAN ASSESSMENT/PLAN Pt. seen and examined. Agree with above PREMI[employer] CARD CANCELLATION CLERK note. Well known to our service. She has no chest pain after diuresis. Agree with continued diuresis and monitor of renal function In light of lack of any significant angina, NSTEMI or EKG changes, would favor conservative mgmt due to her CKD Continue imdur. Ok with DC tomorrow if stable. Thanks DOMINIK FISCHER APRN Apr 05, 2018 11:00 SRUTHI COWAN MD Apr 05, 2018 18:53
--- NOTE | 2018-04-05 11:10 | PDOC2 ---
CONSULT Date of Consult Date of Consult DATE: 04/05/18 TIME: 11:05 Reason for Consult Reason for Consult: CR IS UP Referring Physician Referring Physician: MICHELA Identification/Chief Complaint Chief Complaint SOB AND CHEST PAIN Source Source: Chart review, Patient History of Present Illness Reason for Visit: THIS IS AN 83 YR OLD WITH CHEST PAIN AND SOB. SHE IS BEING SEEN BY CARDIOLOGY. HER CR IS 1.8-2.0. SHE IS AWARE OF KIDNEY PROBLEMS AND IT IS BEING TAKEN CARE OFF BY HER PCP. SHE HAS NOT SEEN A LOC[facility] PSYCHIATRIST. CKD IS DUE TO HTN AND DM II. OCC NOCTURIA AND STRESS INCONTINENCE NOTED BUT NO OTHER HX. NO NEPHROTOXINS NOTED. PER PT SHE USED TO TAKE 80 MG OF LASIX DAILY BUT A MONTH AGO IT WAS REDUCED TO 40 MG A DAY AND THIS IS WHEN HER PROBLEMS STARTED Past Medical History Cardiovascular: CAD, CHF, HTN, AK, Hyperlipidemia Pulmonary: Asthma, Other CENTRAL NERVOUS SYSTEM: Other GI: Constipation, GERD Heme/Onc: Anemia NOS Psych: Anxiety Musculoskeletal: Osteoarthritis, Other Renal/: Chronic renal insuff Endocrine: Diabetes Past Surgical History Past Surgical History: Appendectomy, Cholecystectomy, Cataract Removal, Other Family History Family History: No Significant Social History ALCOHOL: none Drugs: None Lives: [facility] Current Problem List Problem List Problems Medical Problems: (1) Acute on chronic renal failure Status: Acute (2) Chest pain Status: Acute Current Medications Current Medications Current Medications Ondansetron HCl (Zofran) 4 mg PRN Q6HRS PRN IV NAUSEA/VOMITING 1ST CHOICE; Start 04/04/18 at 12:30 Prochlorperazine Edisylate (Compazine) 10 mg PRN Q6HRS PRN IV NAUSEA/VOMITING 2ND CHOICE; Start 04/04/18 at 12:30 Prochlorperazine (Compazine) 25 mg PRN Q12HR PRN NM NAUSEA/VOMITING; Start at 12:30 Al Hydroxide/Mg Hydroxide (Mylanta Plus Xs) 30 ml PRN Q3HRS PRN PO HEARTBURN / GAS Last administered on 04/04/18at 22:58; Start 04/04/18 at 12:30 Calcium Carbonate/ Glycine (Tums) 500 mg PRN Q3HRS PRN PO UPSET STOMACH; Start 04/04/18 at 12:30 Oxycodone HCl (Roxicodone) 5 mg PRN Q3HRS PRN PO SEVERE PAIN; Start 04/04/18 at 12:30 Morphine Sulfate (Morphine Sulfate) 1 mg PRN Q1HR PRN IV PAIN MILD; Start 04/04 at 12:30 Acetaminophen (Tylenol) 650 mg PRN Q6HRS PRN PO Headaches, Temp > 101.5F; Start 04/04/18 at 12:30 Docusate Sodium (Colace) 100 mg BID PO Last administered on 04/04/18at 21:28; Start 04/04/18 at 21:00 Magnesium Hydroxide (Milk Of Magnesia) 2,400 mg PRN Q12HR PRN PO CONSTIPATION; Start 04/04/18 at 12:30 Bisacodyl (Dulcolax Supp) 10 mg PRN DAILY PRN NM NO BOWEL MOVEMENT; Start 04/04 at 12:30 Aspirin (Children'S Aspirin) 81 mg DAILY PO Last administered on 04/05/18at 08: 34; Start 04/05/18 at 09:00 Atorvastatin Calcium (Lipitor) 40 mg QHS PO Last administered on 04/04/18at 21: 28; Start 04/04/18 at 21:00 Carvedilol (Coreg) 3.125 mg BIDWMEALS PO Last administered on 04/05/18at 08:35; Start 04/04/18 at 17:00 Colchicine (Colcrys) 0.6 mg DAILY PO ; Start 04/05/18 at 09:00 Diclofenac Sodium (Voltaren) 1 amy PRN BID PRN TP PAINFUL AREA; Start 04/04/18 at 21:00 Dicyclomine HCl (Bentyl) 10 mg TID PO Last administered on 04/05/18at 08:34; Start 04/04/18 at 14:00 Furosemide (Lasix) 40 mg DAILY PO Last administered on 04/05/18at 08:34; Start 04/05/18 at 09:00 Acetaminophen/ Hydrocodone Bitart (Lortab 5/325) 1 tab PRN Q6HRS PRN PO PAIN MILD; Start 04/04/18 at 12:30 Albuterol/ Ipratropium (Duoneb) 3 ml RTBID NEB ; Start 04/04/18 at 20:00 Mupirocin (Bactroban) 1 amy TID PRN TP PAIN; Start 04/04/18 at 12:30; Status UNV Nitroglycerin (Nitrostat) 0.4 mg PRN Q5MIN PRN SL CHEST PAIN Last administered on 04/04/18at 22:57; Start 04/04/18 at 12:30 Ticagrelor (Brilinta) 90 mg BID PO Last administered on 04/05/18at 08:34; Start 04/04/18 at 21:00 Benzonatate (Tessalon Perle) 100 mg PRN TID PRN PO COUGH 1ST CHOICE; Start at 14:00 Gabapentin (Neurontin) 300 mg DAILY PO Last administered on 04/05/18at 08:34; Start 04/05/18 at 09:00 Glipizide (Glucotrol) 5 mg BIDBFRMEAL PO Last administered on 04/04/18at 17:18; Start 04/04/18 at 16:30 Pantoprazole Sodium (Protonix) 40 mg DAILYAC PO Last administered on 04/05/18at 08:34; Start 04/05/18 at 07:30 Polyethylene Glycol (miraLAX PACKET) 17 gm PRN DAILY PRN PO CONSTIPATION 1ST CHOICE; Start 04/05/18 at 09:00 Non-Formulary Medication (Prednisone ) 50 mg DAILY PO ; Start 04/05/18 at 09:00 ; Status UNV Tizanidine HCl (Zanaflex) 4 mg PRN TID PRN PO MUSCLE SPASMS; Start 04/04/18 at 13:00; Stop 04/04/18 at 13:00; Status DC Insulin Glargine (Lantus) 30 units QHS SQ Last administered on 04/04/18at 21:33 ; Start 04/04/18 at 21:00 Insulin Human Lispro (HumaLOG) 0-9 UNITS TIDWMEALS SQ Last administered on 04/04at 17:35; Start 04/04/18 at 17:00 Dextrose (Dextrose 50%-Water Syringe) 12.5 gm PRN Q15MIN PRN IV SEE COMMENTS; Start 04/04/18 at 12:30 Tizanidine HCl (Zanaflex) 4 mg PRN QID PRN PO MUSCLE SPASMS; Start 04/04/18 at 13:00 Ondansetron HCl (Zofran) 4 mg PRN Q8HRS PRN IV NAUSEA/VOMITING; Start 04/04/18 at 13:00; Stop 04/05/18 at 12:59 Fentanyl Citrate (Fentanyl 2ml Vial) 50 mcg PRN Q2HR PRN IV PAIN; Start at 13:00; Stop 04/05/18 at 12:59 Nitroglycerin (Nitrostat) 0.4 mg PRN Q5MIN PRN SL CHEST PAIN; Start 04/04/18 at 13:00; Stop 04/05/18 at 12:59 Furosemide (Lasix) 40 mg 1X ONCE IVP Last administered on 04/04/18at 17:19; Start 04/04/18 at 13:30; Stop 04/04/18 at 13:31; Status DC Morphine Sulfate (Morphine Sulfate) 2 mg 1X ONCE IV Last administered on at 17:19; Start 04/04/18 at 13:30; Stop 04/04/18 at 13:31; Status DC Morphine Sulfate (Morphine Sulfate) 2 mg PRN Q2HR PRN IV PAIN; Start 04/04/18 at 13:30 Cetirizine HCl (ZyrTEC) 10 mg DAILY PO Last administered on 04/04/18at 17:18; Start 04/04/18 at 13:30 Albuterol/ Ipratropium (Duoneb) 3 ml RTQID NEB Last administered on 04/04/18at 15:30; Start 04/04/18 at 16:00 Guaifenesin (Robitussin Dm) 10 ml QID PO Last administered on 04/04/18at 21:28; Start 04/04/18 at 17:00 Simethicone (Gas-X) 80 mg PRN AFTMEALHC PRN PO GAS / BLOATING Last administered on 04/04/18at 17:18; Start 04/04/18 at 16:30 Active Scripts Active [place] 5-325 Tablet (Acetaminophen/Hydrocodone Bitart) 1 Each Tablet 1-2 Tab PO Q4-6HRS Prednisone 50 Mg Tablet 50 Mg PO DAILY 5 Days [place] 5-325 Tablet (Acetaminophen/Hydrocodone Bitart) 1 Each Tablet 1 Tab PO PRN Q6HRS PRN Colcrys (Colchicine) 0.6 Mg Tablet 0.6 Mg PO EVERY HOUR PRN Take 1 pill every hour by mouth as needed for an acute gout attack up to 5 doses. Stop if you have nausea or stomach irritation. Brilinta (Ticagrelor) 90 Mg Tablet 90 Mg PO BID Duoneb 0.5-3(2.5) Mg/3 Ml (Albuterol/Ipratropium) 3 Ml Ampul.neb 3 Ml NEB BID Atorvastatin Calcium 40 Mg Tablet 40 Mg PO QHS Reported Furosemide 40 Mg Tablet 1 Tab PO DAILY Coreg (Carvedilol) 3.125 Mg Tablet 1 Tab PO BID Glipizide 10 Mg Tablet 0.5 Tab PO BID Omeprazole 40 Mg Capsule.dr 1 Cap PO DAILY Benzonatate 100 Mg Capsule 100 Mg PO PRN TID Gabapentin 300 Mg Capsule 300 PO DAILY Tizanidine Hcl 2 Mg Capsule 2 Mg PO QID PRN NITROGLYCERIN SubLingual (Nitroglycerin) 0.4 Mg Tab.subl 0.4 Mg SL PRN Q5MIN PRN Voltaren (Diclofenac Sodium) 100 Gm Gel..gram. 2 Gm TP BID PRN Lantus (Insulin Glargine,Hum.rec.anlog) 100 Unit/1 Ml Vial 30 Unit SQ Mupirocin Ointment (Mupirocin) 22 Gm Oint...g. 1 Amy TP TID PRN Aspirin 81 Mg Tab.chew 1 Tab PO DAILY Dicyclomine Hcl 10 Mg Capsule 1 Cap PO TID Miralax (Polyethylene Glycol 3350) 17 Gm Powd.pack 1 Packet PO DAILY PRN Allergies Allergies: Coded Allergies: metformin (Verified Allergy, Intermediate, 02/11/17) tramadol (Verified Allergy, Intermediate, 06/26/16) ROS General: YES: Fatigue, Malaise PSYCHOLOGICAL ROS: YES: Anxiety Eyes: Yes Decreased vision HEENT: YES: Heacaches Respiratory: YES: Cough, Shortness of breath Cardiovascular: yes Chest Pain Gastrointestinal: Yes Constipation Genitourinary: YES Other (NOCTURIA) Musculoskeletal: Yes Muscular Weakness Skin: Yes Dry Skin Physical Exam General: Alert, Oriented X3, Cooperative, No acute distress HEENT: Atraumatic, PERRLA, EOMI Lungs: Clear to auscultation Heart: Regular rate, Normal S1, Normal S2 Abdomen: Normal bowel sounds, Soft, No tenderness, No hepatosplenomegaly Extremities: No cyanosis, No edema Skin: No breakdown Neuro: Normal speech, Cranial nerves 3-12 NL Psych/Mental Status: Mental status NL, Mood NL MUSCULOSKELETAL: No deformity Vitals VITALS Vital Signs Date Time Temp Pulse Resp B/P (MAP) Pulse Ox O2 Delivery O2 Flow Rate FiO2 04/05/18 10:43 97.8 68 20 108/44 (65) 100 Room Air 97.8 04/05/18 08:00 2.0 Labs Labs Laboratory Tests Test 04/04/18 11:21 04/04/18 11:30 04/04/18 13:49 04/04/18 14:45 Urine Collection Type Unknown Urine Color Yellow Urine Clarity Clear Urine pH 5.5 Urine Specific [place] 1.015 Urine Protein Negative mg/dL (NEG-TRACE) Urine Glucose (UA) Negative mg/dL (NEG) Urine Ketones (Stick) Negative mg/dL (NEG) Urine Blood Negative (NEG) Urine Nitrite Negative (NEG) Urine Bilirubin Negative (NEG) Urine Urobilinogen Dipstick 0.2 mg/dL (0.2 mg/dL) Urine Leukocyte Esterase Negative (NEG) Urine RBC Occ /HPF (0-2) Urine WBC Occ /HPF (0-4) Urine Squamous Epithelial Cells Many /LPF Urine Bacteria Few /HPF (0-FEW) Urine Mucus Marked /LPF Urine Opiates Screen Neg (NEG) Urine Methadone Screen Neg (NEG) Urine Barbiturates Neg (NEG) Urine Phencyclidine Screen Neg (NEG) Urine Amphetamine/Methamphetamine Neg (NEG) Urine Benzodiazepines Screen Neg (NEG) Urine Cocaine Screen Neg (NEG) Urine Cannabinoids Screen Neg (NEG) Urine Ethyl Alcohol Neg (NEG) White Blood Count 5.3 x10^3/uL (4.0-11.0) Red Blood Count 3.65 x10^6/uL (3.50-5.40) Hemoglobin 11.3 g/dL (12.0-15.5) Hematocrit 33.7 % (36.0-47.0) Mean Corpuscular Volume 92 fL (79-100) Mean Corpuscular Hemoglobin 31 pg (25-35) Mean Corpuscular Hemoglobin Concent 34 g/dL (31-37) Red Cell Distribution Width 12.8 % (11.5-14.5) Platelet Count 175 x10^3/uL (140-400) Neutrophils (%) (Auto) 66 % (31-73) Lymphocytes (%) (Auto) 19 % (24-48) Monocytes (%) (Auto) 10 % (0-9) Eosinophils (%) (Auto) 5 % (0-3) Basophils (%) (Auto) 0 % (0-3) Neutrophils # (Auto) 3.5 x10^3uL (1.8-7.7) Lymphocytes # (Auto) 1.0 x10^3/uL (1.0-4.8) Monocytes # (Auto) 0.5 x10^3/uL (0.0-1.1) Eosinophils # (Auto) 0.3 x10^3/uL (0.0-0.7) Basophils # (Auto) 0.0 x10^3/uL (0.0-0.2) Prothrombin Time 12.8 SEC (11.7-14.0) Prothromb Time International Ratio 1.0 (0.8-1.1) Sodium Level 138 mmol/L (136-145) Potassium Level 4.4 mmol/L (3.5-5.1) Chloride Level 104 mmol/L (98-107) Carbon Dioxide Level 28 mmol/L (21-32) Anion Gap 6 (6-14) Blood Urea Nitrogen 30 mg/dL (7-20) Creatinine 1.8 mg/dL (0.6-1.0) Estimated GFR (Cockcroft-Gault) 32.5 BUN/Creatinine Ratio 17 (6-20) Glucose Level 206 mg/dL (70-99) Calcium Level 9.5 mg/dL (8.5-10.1) Magnesium Level 1.9 mg/dL (1.8-2.4) Total Bilirubin 0.6 mg/dL (0.2-1.0) Aspartate Amino Transf (AST/SGOT) 19 U/L (15-37) Alanine Aminotransferase (ALT/SGPT) 20 U/L (14-59) Alkaline Phosphatase 136 U/L (46-116) Creatine Kinase 123 U/L (26-192) Creatine Kinase MB (Mass) < 0.5 ng/mL (0.0-3.6) Creatine Kinase MB Relative Index % (0-4) Troponin I Quantitative < 0.017 ng/mL (0.000-0.055) < 0.017 ng/mL (0.000-0.055) WX-Duh-T-Type Natriuretic Peptide 1824 pg/mL (0-449) Total Protein 7.3 g/dL (6.4-8.2) Albumin 3.4 g/dL (3.4-5.0) Albumin/Globulin Ratio 0.9 (1.0-1.7) Glucose (Fingerstick) 169 mg/dL (70-99) Test 04/04/18 16:43 04/04/18 17:30 04/04/18 21:26 04/05/18 03:40 Glucose (Fingerstick) 204 mg/dL (70-99) 205 mg/dL (70-99) Troponin I Quantitative < 0.017 ng/mL (0.000-0.055) White Blood Count 5.5 x10^3/uL (4.0-11.0) Red Blood Count 3.24 x10^6/uL (3.50-5.40) Hemoglobin 10.3 g/dL (12.0-15.5) Hematocrit 29.8 % (36.0-47.0) Mean Corpuscular Volume 92 fL (79-100) Mean Corpuscular Hemoglobin 32 pg (25-35) Mean Corpuscular Hemoglobin Concent 34 g/dL (31-37) Red Cell Distribution Width 13.2 % (11.5-14.5) Platelet Count 163 x10^3/uL (140-400) Neutrophils (%) (Auto) 61 % (31-73) Lymphocytes (%) (Auto) 22 % (24-48) Monocytes (%) (Auto) 12 % (0-9) Eosinophils (%) (Auto) 5 % (0-3) Basophils (%) (Auto) 0 % (0-3) Neutrophils # (Auto) 3.3 x10^3uL (1.8-7.7) Lymphocytes # (Auto) 1.2 x10^3/uL (1.0-4.8) Monocytes # (Auto) 0.6 x10^3/uL (0.0-1.1) Eosinophils # (Auto) 0.3 x10^3/uL (0.0-0.7) Basophils # (Auto) 0.0 x10^3/uL (0.0-0.2) Sodium Level 139 mmol/L (136-145) Potassium Level 4.3 mmol/L (3.5-5.1) Chloride Level 104 mmol/L (98-107) Carbon Dioxide Level 31 mmol/L (21-32) Anion Gap 4 (6-14) Blood Urea Nitrogen 35 mg/dL (7-20) Creatinine 2.1 mg/dL (0.6-1.0) Estimated GFR (Cockcroft-Gault) 27.2 BUN/Creatinine Ratio 17 (6-20) Glucose Level 250 mg/dL (70-99) Calcium Level 9.2 mg/dL (8.5-10.1) Total Bilirubin 0.4 mg/dL (0.2-1.0) Aspartate Amino Transf (AST/SGOT) 14 U/L (15-37) Alanine Aminotransferase (ALT/SGPT) 19 U/L (14-59) Alkaline Phosphatase 152 U/L (46-116) Total Protein 6.8 g/dL (6.4-8.2) Albumin 3.0 g/dL (3.4-5.0) Albumin/Globulin Ratio 0.8 (1.0-1.7) Test 04/05/18 07:08 Glucose (Fingerstick) 155 mg/dL (70-99) Laboratory Tests Test 04/04/18 11:21 04/04/18 11:30 04/04/18 13:49 04/04/18 14:45 Urine Collection Type Unknown Urine Color Yellow Urine Clarity Clear Urine pH 5.5 Urine Specific [place] 1.015 Urine Protein Negative mg/dL (NEG-TRACE) Urine Glucose (UA) Negative mg/dL (NEG) Urine Ketones (Stick) Negative mg/dL (NEG) Urine Blood Negative (NEG) Urine Nitrite Negative (NEG) Urine Bilirubin Negative (NEG) Urine Urobilinogen Dipstick 0.2 mg/dL (0.2 mg/dL) Urine Leukocyte Esterase Negative (NEG) Urine RBC Occ /HPF (0-2) Urine WBC Occ /HPF (0-4) Urine Squamous Epithelial Cells Many /LPF Urine Bacteria Few /HPF (0-FEW) Urine Mucus Marked /LPF Urine Opiates Screen Neg (NEG) Urine Methadone Screen Neg (NEG) Urine Barbiturates Neg (NEG) Urine Phencyclidine Screen Neg (NEG) Urine Amphetamine/Methamphetamine Neg (NEG) Urine Benzodiazepines Screen Neg (NEG) Urine Cocaine Screen Neg (NEG) Urine Cannabinoids Screen Neg (NEG) Urine Ethyl Alcohol Neg (NEG) White Blood Count 5.3 x10^3/uL (4.0-11.0) Red Blood Count 3.65 x10^6/uL (3.50-5.40) Hemoglobin 11.3 g/dL (12.0-15.5) Hematocrit 33.7 % (36.0-47.0) Mean Corpuscular Volume 92 fL (79-100) Mean Corpuscular Hemoglobin 31 pg (25-35) Mean Corpuscular Hemoglobin Concent 34 g/dL (31-37) Red Cell Distribution Width 12.8 % (11.5-14.5) Platelet Count 175 x10^3/uL (140-400) Neutrophils (%) (Auto) 66 % (31-73) Lymphocytes (%) (Auto) 19 % (24-48) Monocytes (%) (Auto) 10 % (0-9) Eosinophils (%) (Auto) 5 % (0-3) Basophils (%) (Auto) 0 % (0-3) Neutrophils # (Auto) 3.5 x10^3uL (1.8-7.7) Lymphocytes # (Auto) 1.0 x10^3/uL (1.0-4.8) Monocytes # (Auto) 0.5 x10^3/uL (0.0-1.1) Eosinophils # (Auto) 0.3 x10^3/uL (0.0-0.7) Basophils # (Auto) 0.0 x10^3/uL (0.0-0.2) Prothrombin Time 12.8 SEC (11.7-14.0) Prothromb Time International Ratio 1.0 (0.8-1.1) Sodium Level 138 mmol/L (136-145) Potassium Level 4.4 mmol/L (3.5-5.1) Chloride Level 104 mmol/L (98-107) Carbon Dioxide Level 28 mmol/L (21-32) Anion Gap 6 (6-14) Blood Urea Nitrogen 30 mg/dL (7-20) Creatinine 1.8 mg/dL (0.6-1.0) Estimated GFR (Cockcroft-Gault) 32.5 BUN/Creatinine Ratio 17 (6-20) Glucose Level 206 mg/dL (70-99) Calcium Level 9.5 mg/dL (8.5-10.1) Magnesium Level 1.9 mg/dL (1.8-2.4) Total Bilirubin 0.6 mg/dL (0.2-1.0) Aspartate Amino Transf (AST/SGOT) 19 U/L (15-37) Alanine Aminotransferase (ALT/SGPT) 20 U/L (14-59) Alkaline Phosphatase 136 U/L (46-116) Creatine Kinase 123 U/L (26-192) Creatine Kinase MB (Mass) < 0.5 ng/mL (0.0-3.6) Creatine Kinase MB Relative Index % (0-4) Troponin I Quantitative < 0.017 ng/mL (0.000-0.055) < 0.017 ng/mL (0.000-0.055) PP-Cyy-V-Type Natriuretic Peptide 1824 pg/mL (0-449) Total Protein 7.3 g/dL (6.4-8.2) Albumin 3.4 g/dL (3.4-5.0) Albumin/Globulin Ratio 0.9 (1.0-1.7) Glucose (Fingerstick) 169 mg/dL (70-99) Test 04/04/18 16:43 04/04/18 17:30 04/04/18 21:26 04/05/18 03:40 Glucose (Fingerstick) 204 mg/dL (70-99) 205 mg/dL (70-99) Troponin I Quantitative < 0.017 ng/mL (0.000-0.055) White Blood Count 5.5 x10^3/uL (4.0-11.0) Red Blood Count 3.24 x10^6/uL (3.50-5.40) Hemoglobin 10.3 g/dL (12.0-15.5) Hematocrit 29.8 % (36.0-47.0) Mean Corpuscular Volume 92 fL (79-100) Mean Corpuscular Hemoglobin 32 pg (25-35) Mean Corpuscular Hemoglobin Concent 34 g/dL (31-37) Red Cell Distribution Width 13.2 % (11.5-14.5) Platelet Count 163 x10^3/uL (140-400) Neutrophils (%) (Auto) 61 % (31-73) Lymphocytes (%) (Auto) 22 % (24-48) Monocytes (%) (Auto) 12 % (0-9) Eosinophils (%) (Auto) 5 % (0-3) Basophils (%) (Auto) 0 % (0-3) Neutrophils # (Auto) 3.3 x10^3uL (1.8-7.7) Lymphocytes # (Auto) 1.2 x10^3/uL (1.0-4.8) Monocytes # (Auto) 0.6 x10^3/uL (0.0-1.1) Eosinophils # (Auto) 0.3 x10^3/uL (0.0-0.7) Basophils # (Auto) 0.0 x10^3/uL (0.0-0.2) Sodium Level 139 mmol/L (136-145) Potassium Level 4.3 mmol/L (3.5-5.1) Chloride Level 104 mmol/L (98-107) Carbon Dioxide Level 31 mmol/L (21-32) Anion Gap 4 (6-14) Blood Urea Nitrogen 35 mg/dL (7-20) Creatinine 2.1 mg/dL (0.6-1.0) Estimated GFR (Cockcroft-Gault) 27.2 BUN/Creatinine Ratio 17 (6-20) Glucose Level 250 mg/dL (70-99) Calcium Level 9.2 mg/dL (8.5-10.1) Total Bilirubin 0.4 mg/dL (0.2-1.0) Aspartate Amino Transf (AST/SGOT) 14 U/L (15-37) Alanine Aminotransferase (ALT/SGPT) 19 U/L (14-59) Alkaline Phosphatase 152 U/L (46-116) Total Protein 6.8 g/dL (6.4-8.2) Albumin 3.0 g/dL (3.4-5.0) Albumin/Globulin Ratio 0.8 (1.0-1.7) Test 04/05/18 07:08 Glucose (Fingerstick) 155 mg/dL (70-99) Assessment/Plan Assessment/Plan IMP CKD STAGE 3-STABLE CR DM II HTN CHF ACUTE ON CHRONIC DIASTOLIC? PLAN INCREASE LASIX TO 40 BID CARDIOLOGY EVALUATION WILL FOLLOW ALAYNA PRITCHARD MD Apr 05, 2018 11:10
[2018-04-05] MEDS: FUROSEMIDE 40 MG TABLET. PO SCH (12:46)
[2018-04-05 14:47] VITALS: BP 113/48
--- NOTE | 2018-04-05 15:28 | CARD ---
MR#: [id number] Date of Study: 04/05/2018 Ordering Physician: DOMINIK FISCHER, Referring Physician: Precious MCFARLAND: MARTINEZ Ramirez APPROVED REPORT EXAM: Two-dimensional and M-mode echocardiogram with Doppler and color Doppler. Other Information Quality : AverageHR: 66bpm INDICATION Cardiomyopathy 2D DIMENSIONS RVDd2.9 (2.9-3.5cm)Left Atrium(2D)3.5 (1.6-4.0cm) IVSd1.3 (0.7-1.1cm)Aortic Root(2D)3.0 (2.0-3.7cm) LVDd5.3 (3.9-5.9cm)LVOT Diameter2.1 (1.8-2.4cm) PWd1.2 (0.7-1.1cm)LVDs4.2 (2.5-4.0cm) FS (%) 13.0 %SV57.1 ml M-Mode DIMENSIONS IVSd1.21 (0.7-1.1cm)LVDd4.42 (4.0-5.6cm) PWd1.47 (0.7-1.1cm)IVSs1.40 cm FS (%) 18 %LVDs3.63 (2.0-3.8cm) PWs1.74 cmLVEF(%)37 (>50%) Aortic Valve AoV Peak Wilbur.97.0cm/sAoV VTI19.5cm AO Peak GR.3.8mmHgLVOT Peak Wilbur.70.7cm/s LVOT VTI 14.23cmAO Mean GR.2mmHg BENJAMIN (VMAX)1.85uj0ESZ (VTI)2.45cm2 Mitral Valve MV E Ogangigo242.7cm/sMV E Peak Gr.74mmHg MV DECEL [id number] A Mfzvvuvg34.6cm/s MV BCU60hdA/A Ratio3.2 MVA (PHT)5.09cm2 TDI E/Lateral E'10.8E/Medial E'24.9 Pulmonary Valve PV Peak Ityajmlz38.0cm/sPV Peak Grad.2mmHg Tricuspid Valve TR P. Hhznyaii746mq/sTR Peak Gr.26mmHg Pulmonary Vein S1 Dzldyekx22.9cm/sD2 Oympptsb32.6cm/s LEFT VENTRICLE The Left Ventricle is mildly dilated. There is mild concentric left ventricular hypertrophy. The ejec tion fraction is severely impaired. The Ejection Fraction is estimated at 25%. There is akinesis in t he apex. Mid to Distal portions of the septum and inferior wall have severe hypokenisis. Transmitral Doppler flow pattern is abnormal. RIGHT VENTRICLE The right ventricle is normal size. There is a device lead in the right ventricle. ATRIA The left atrium is mildly dilated. The right atrium size is normal. A device lead is seen in the righ t atrium consistent with history. The interatrial septum is intact with no evidence for an atrial sep eriberto defect or patent foramen ovale as noted on 2-D or Doppler imaging. AORTIC VALVE The aortic valve is mildly calcified. Doppler and Color Flow revealed no significant aortic regurgita tion. There is no significant aortic valvular stenosis. There is no aortic valvular vegetation. MITRAL VALVE The mitral valve is calcified but opens well. There is no evidence of mitral valve prolapse. There is no mitral valve stenosis. Doppler and Color-flow revealed mild to moderate mitral regurgitation. TRICUSPID VALVE The tricuspid valve leaflets are thickened , but open well. Doppler and Color Flow revealed mild tric uspid regurgitation. There is no tricuspid valve prolapse or vegetation. There is no tricuspid valve stenosis. PULMONIC VALVE The pulmonic valve is not well visualized. Doppler and Color Flow revealed trace pulmonic valvular re gurgitation. There is no pulmonic valvular stenosis. GREAT VESSELS The aortic root is mildly enlarged. The aortic root displays mild sclerocalcific changes of the aorti c annulus. The IVC is normal in size and collapses >50% with inspiration. PERICARDIAL EFFUSION There is no pleural effusion. There is no evidence of significant pericardial effusion. Critical Notification Critical Value: No <Conclusion> The Left Ventricle is mildly dilated. The ejection fraction is severely impaired. The Ejection Fraction is estimated at 25%. There is akinesis in the apex. Mid to distal portions of the septum and inferior wall have severe hyp okenisis. There is mild concentric left ventricular hypertrophy. Device leads are seen in the right atrium and ventricle. There is no significant aortic valvular stenosis. Doppler and Color Flow revealed no significant aortic regurgitation. Doppler and Color-flow revealed mild to moderate mitral regurgitation. Doppler and Color Flow revealed mild tricuspid regurgitation. The aortic root is mildly enlarged. Signed by : Driss Saxena MD Electronically Approved : 04/05/2018 15:27:35
[2018-04-05 19:00] VITALS: BP 116/61
[2018-04-05] MEDS: ATORVASTATIN CALCIUM 40 MG TABLET. PO SCH (20:52)
[2018-04-05] MEDS: INSULIN GLARGINE 300 UNITS/3 ML INSULN.PEN. SQ SCH (20:57)
[2018-04-05] MEDS ORDERED: ISOSORBIDE MONONITRATE ER 30 MG TAB.ER.24H PO SCH (21:00)
[2018-04-05 23:00] VITALS: BP 124/66
[2018-04-06 03:00] VITALS: BP 133/76
[2018-04-06 04:58] LABS: CALCIUM 9.3 mg/dL (8.5-10.1); CREATININE 1.9 mg/dL (0.6-1.0); GFR 30.5; PHOSPHORUS 4.9 mg/dL (2.6-4.7); POTASSIUM 3.7 mmol/L (3.5-5.1)
[2018-04-06 07:00] VITALS: BP 95/47
[2018-04-06] MEDS: IPRATRPIUM/ALBUTEROL 0.5/2.5MG 3 ML NEBU. NEB SCH ×2 (07:46→12:00)
[2018-04-06] MEDS: INSULIN LISPRO 300 UNITS/3 ML INSULN.PEN. SQ SCH ×2 (08:00→12:15)
[2018-04-06] MEDS: CARVEDILOL 3.125 MG TABLET. PO SCH (08:00)
[2018-04-06] MEDS: glipiZIDE 5 MG TABLET PO SCH (08:27)
[2018-04-06] MEDS: PANTOPRAZOLE 40 MG TABLET.DR. PO SCH (08:28)
[2018-04-06] MEDS: DICYCLOMINE HCL 10 MG CAPSULE PO SCH (08:29)
[2018-04-06] MEDS: TICAGRELOR 90 MG TABLET. PO SCH (08:29)
[2018-04-06] MEDS: DOCUSATE SODIUM 100 MG CAPSULE. PO SCH (08:29)
[2018-04-06] MEDS: ASPIRIN CHEWABLE 81 MG TABLET. PO SCH (08:29)
[2018-04-06] MEDS: COLCHICINE 0.6 MG TABLET PO SCH (08:29)
[2018-04-06] MEDS: guaiFENesin DM 200MG/20MG 10 ML SYRUP PO SCH ×2 (08:30→12:16)
[2018-04-06] MEDS: FUROSEMIDE 40 MG TABLET. PO SCH (08:30)
[2018-04-06] MEDS: CETIRIZINE HCL 10 MG TABLET. PO SCH (08:30)
[2018-04-06] MEDS: GABAPENTIN 300 MG CAPSULE. PO SCH (08:30)
--- NOTE | 2018-04-06 10:54 | PDOC ---
CARDIO Progress Notes Date and Time Date of Service 04/06/2018 Time of Evaluation 1049 Subjective Subjective: No shortness of breath, No Palpitations, No Dizziness Comments: intermittent chest pain Vitals Vitals Vital Signs Date Time Temp Pulse Resp B/P (MAP) Pulse Ox O2 Delivery O2 Flow Rate FiO2 04/06/18 07:00 97.5 69 95/47 (63) 97 Room Air 97.5 04/06/18 03:00 20 04/05/18 19:44 2.0 Weight Weight [ ] Input and Output Intake and Output Intake and Output 04/06/18 07:00 Intake Total 2910 ml Output Total 1050 ml Balance 1860 ml Intake Oral 2910 ml Output Urine Total 1050 ml Laboratory Labs Laboratory Tests Test 04/05/18 11:03 04/05/18 16:10 04/05/18 20:51 04/06/18 03:45 Glucose (Fingerstick) 104 mg/dL (70-99) 199 mg/dL (70-99) 149 mg/dL (70-99) Sodium Level 138 mmol/L (136-145) Potassium Level 3.7 mmol/L (3.5-5.1) Chloride Level 103 mmol/L (98-107) Carbon Dioxide Level 32 mmol/L (21-32) Anion Gap 3 (6-14) Blood Urea Nitrogen 43 mg/dL (7-20) Creatinine 1.9 mg/dL (0.6-1.0) Estimated GFR (Cockcroft-Gault) 30.5 Glucose Level 113 mg/dL (70-99) Calcium Level 9.3 mg/dL (8.5-10.1) Phosphorus Level 4.9 mg/dL (2.6-4.7) Albumin 3.0 g/dL (3.4-5.0) Test 04/06/18 08:14 Glucose (Fingerstick) 80 mg/dL (70-99) Physical Exam HEENT: Neck Supple W Full Motion Chest: Symmetric LUNGS: Clear to Auscultation Heart: S1S2, other (tele: SR with PACs) Abdomen: Soft N/T Extremities: No Edema Neurology: alert, oriented, follow commands Assessment Assessment 1. chest pain with known CAD --request records from [facility] and [facility] not yet received --TTE with LVEF of 25%; unchanged --continue anti-platelet (ticagrelor) --symptoms improved with addition of isosorbide --recommend f/u with usual resp therapist @ [facility] in the next 7 - 10 days after discharge --agreeable with discharge 2. ischemic cardiomyopathy --requesting records to determine brand of ICD; if can determine, will interrogate --continue BB and diuretics 3. chronic systolic HF (HFrEF) --NT-proBNP not greatly elevated when age adjusted and in the setting of CKD ; no CXR for evaluation --clinically compensated this a.m. --LVEF remains @ 25%; discussed limiting weight lifting, stair climbing, exposure to heat/humidity 4. DM, II --defer to primary service 5. CKD --per nephrology Cardiology agreeable with discharge DOMINIK FISCHER APRN Apr 06, 2018 10:54
[2018-04-06 11:00] VITALS: BP 109/54
[2018-04-06] MEDS ORDERED: BENZ-8 PO (11:09)
[2018-04-06] MEDS ORDERED: ALPR0.5T PO (11:09)
[2018-04-06] MEDS ORDERED: FURO40TA4 PO (11:09)
--- NOTE | 2018-04-06 11:12 | PDOC3 ---
Discharge Summary Visit Information Date of Admission: Apr 04, 2018 Date of Discharge: Apr 06, 2018 Admitting Diagnosis Comment: CHF. combined systolic an diastolic (low EF) Chest pain, MSK History of CAD with 3-4 indwelling stents Hypertension controlled Diabetes type 2 uncontrolled-check hemoglobin A1c Obesity with a BMI 35 AK I on CK D stage 3 Final Diagnosis Problems Medical Problems: (1) Acute on chronic renal failure Status: Acute (2) Chest pain Status: Acute Brief Hospital Course Allergies Allergies Coded Allergies Type Severity Reaction Last Updated Verified metformin Allergy Intermediate 02/11/17 Yes tramadol Allergy Intermediate 06/26/16 Yes Vital Signs Vital Signs Date Time Temp Pulse Resp B/P (MAP) Pulse Ox O2 Delivery O2 Flow Rate FiO2 04/06/18 07:00 97.5 69 95/47 (63) 97 Room Air 97.5 04/06/18 03:00 20 04/05/18 19:44 2.0 Lab Results Laboratory Tests Test 04/04/18 11:21 04/04/18 11:30 04/04/18 13:49 04/04/18 14:45 Urine Collection Type Unknown Urine Color Yellow Urine Clarity Clear Urine pH 5.5 Urine Specific [place] 1.015 Urine Protein Negative mg/dL (NEG-TRACE) Urine Glucose (UA) Negative mg/dL (NEG) Urine Ketones (Stick) Negative mg/dL (NEG) Urine Blood Negative (NEG) Urine Nitrite Negative (NEG) Urine Bilirubin Negative (NEG) Urine Urobilinogen Dipstick 0.2 mg/dL (0.2 mg/dL) Urine Leukocyte Esterase Negative (NEG) Urine RBC Occ /HPF (0-2) Urine WBC Occ /HPF (0-4) Urine Squamous Epithelial Cells Many /LPF Urine Bacteria Few /HPF (0-FEW) Urine Mucus Marked /LPF Urine Opiates Screen Neg (NEG) Urine Methadone Screen Neg (NEG) Urine Barbiturates Neg (NEG) Urine Phencyclidine Screen Neg (NEG) Urine Amphetamine/Methamphetamine Neg (NEG) Urine Benzodiazepines Screen Neg (NEG) Urine Cocaine Screen Neg (NEG) Urine Cannabinoids Screen Neg (NEG) Urine Ethyl Alcohol Neg (NEG) White Blood Count 5.3 x10^3/uL (4.0-11.0) Red Blood Count 3.65 x10^6/uL (3.50-5.40) Hemoglobin 11.3 g/dL (12.0-15.5) Hematocrit 33.7 % (36.0-47.0) Mean Corpuscular Volume 92 fL (79-100) Mean Corpuscular Hemoglobin 31 pg (25-35) Mean Corpuscular Hemoglobin Concent 34 g/dL (31-37) Red Cell Distribution Width 12.8 % (11.5-14.5) Platelet Count 175 x10^3/uL (140-400) Neutrophils (%) (Auto) 66 % (31-73) Lymphocytes (%) (Auto) 19 % (24-48) Monocytes (%) (Auto) 10 % (0-9) Eosinophils (%) (Auto) 5 % (0-3) Basophils (%) (Auto) 0 % (0-3) Neutrophils # (Auto) 3.5 x10^3uL (1.8-7.7) Lymphocytes # (Auto) 1.0 x10^3/uL (1.0-4.8) Monocytes # (Auto) 0.5 x10^3/uL (0.0-1.1) Eosinophils # (Auto) 0.3 x10^3/uL (0.0-0.7) Basophils # (Auto) 0.0 x10^3/uL (0.0-0.2) Prothrombin Time 12.8 SEC (11.7-14.0) Prothromb Time International Ratio 1.0 (0.8-1.1) Sodium Level 138 mmol/L (136-145) Potassium Level 4.4 mmol/L (3.5-5.1) Chloride Level 104 mmol/L (98-107) Carbon Dioxide Level 28 mmol/L (21-32) Anion Gap 6 (6-14) Blood Urea Nitrogen 30 mg/dL (7-20) Creatinine 1.8 mg/dL (0.6-1.0) Estimated GFR (Cockcroft-Gault) 32.5 BUN/Creatinine Ratio 17 (6-20) Glucose Level 206 mg/dL (70-99) Calcium Level 9.5 mg/dL (8.5-10.1) Magnesium Level 1.9 mg/dL (1.8-2.4) Total Bilirubin 0.6 mg/dL (0.2-1.0) Aspartate Amino Transf (AST/SGOT) 19 U/L (15-37) Alanine Aminotransferase (ALT/SGPT) 20 U/L (14-59) Alkaline Phosphatase 136 U/L (46-116) Creatine Kinase 123 U/L (26-192) Creatine Kinase MB (Mass) < 0.5 ng/mL (0.0-3.6) Creatine Kinase MB Relative Index % (0-4) Troponin I Quantitative < 0.017 ng/mL (0.000-0.055) < 0.017 ng/mL (0.000-0.055) SO-Tvt-P-Type Natriuretic Peptide 1824 pg/mL (0-449) Total Protein 7.3 g/dL (6.4-8.2) Albumin 3.4 g/dL (3.4-5.0) Albumin/Globulin Ratio 0.9 (1.0-1.7) Glucose (Fingerstick) 169 mg/dL (70-99) Test 04/04/18 16:43 04/04/18 17:30 04/04/18 21:26 04/05/18 03:40 Glucose (Fingerstick) 204 mg/dL (70-99) 205 mg/dL (70-99) Troponin I Quantitative < 0.017 ng/mL (0.000-0.055) White Blood Count 5.5 x10^3/uL (4.0-11.0) Red Blood Count 3.24 x10^6/uL (3.50-5.40) Hemoglobin 10.3 g/dL (12.0-15.5) Hematocrit 29.8 % (36.0-47.0) Mean Corpuscular Volume 92 fL (79-100) Mean Corpuscular Hemoglobin 32 pg (25-35) Mean Corpuscular Hemoglobin Concent 34 g/dL (31-37) Red Cell Distribution Width 13.2 % (11.5-14.5) Platelet Count 163 x10^3/uL (140-400) Neutrophils (%) (Auto) 61 % (31-73) Lymphocytes (%) (Auto) 22 % (24-48) Monocytes (%) (Auto) 12 % (0-9) Eosinophils (%) (Auto) 5 % (0-3) Basophils (%) (Auto) 0 % (0-3) Neutrophils # (Auto) 3.3 x10^3uL (1.8-7.7) Lymphocytes # (Auto) 1.2 x10^3/uL (1.0-4.8) Monocytes # (Auto) 0.6 x10^3/uL (0.0-1.1) Eosinophils # (Auto) 0.3 x10^3/uL (0.0-0.7) Basophils # (Auto) 0.0 x10^3/uL (0.0-0.2) Sodium Level 139 mmol/L (136-145) Potassium Level 4.3 mmol/L (3.5-5.1) Chloride Level 104 mmol/L (98-107) Carbon Dioxide Level 31 mmol/L (21-32) Anion Gap 4 (6-14) Blood Urea Nitrogen 35 mg/dL (7-20) Creatinine 2.1 mg/dL (0.6-1.0) Estimated GFR (Cockcroft-Gault) 27.2 BUN/Creatinine Ratio 17 (6-20) Glucose Level 250 mg/dL (70-99) Calcium Level 9.2 mg/dL (8.5-10.1) Total Bilirubin 0.4 mg/dL (0.2-1.0) Aspartate Amino Transf (AST/SGOT) 14 U/L (15-37) Alanine Aminotransferase (ALT/SGPT) 19 U/L (14-59) Alkaline Phosphatase 152 U/L (46-116) Total Protein 6.8 g/dL (6.4-8.2) Albumin 3.0 g/dL (3.4-5.0) Albumin/Globulin Ratio 0.8 (1.0-1.7) Test 04/05/18 07:08 04/05/18 11:03 04/05/18 16:10 04/05/18 20:51 Glucose (Fingerstick) 155 mg/dL (70-99) 104 mg/dL (70-99) 199 mg/dL (70-99) 149 mg/dL (70-99) Test 04/06/18 03:45 04/06/18 08:14 Sodium Level 138 mmol/L (136-145) Potassium Level 3.7 mmol/L (3.5-5.1) Chloride Level 103 mmol/L (98-107) Carbon Dioxide Level 32 mmol/L (21-32) Anion Gap 3 (6-14) Blood Urea Nitrogen 43 mg/dL (7-20) Creatinine 1.9 mg/dL (0.6-1.0) Estimated GFR (Cockcroft-Gault) 30.5 Glucose Level 113 mg/dL (70-99) Calcium Level 9.3 mg/dL (8.5-10.1) Phosphorus Level 4.9 mg/dL (2.6-4.7) Albumin 3.0 g/dL (3.4-5.0) Glucose (Fingerstick) 80 mg/dL (70-99) Laboratory Tests Test 04/05/18 16:10 04/05/18 20:51 04/06/18 03:45 04/06/18 08:14 Glucose (Fingerstick) 199 mg/dL (70-99) 149 mg/dL (70-99) 80 mg/dL (70-99) Sodium Level 138 mmol/L (136-145) Potassium Level 3.7 mmol/L (3.5-5.1) Chloride Level 103 mmol/L (98-107) Carbon Dioxide Level 32 mmol/L (21-32) Anion Gap 3 (6-14) Blood Urea Nitrogen 43 mg/dL (7-20) Creatinine 1.9 mg/dL (0.6-1.0) Estimated GFR (Cockcroft-Gault) 30.5 Glucose Level 113 mg/dL (70-99) Calcium Level 9.3 mg/dL (8.5-10.1) Phosphorus Level 4.9 mg/dL (2.6-4.7) Albumin 3.0 g/dL (3.4-5.0) Brief Hospital Course Ms. 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 PCP was hesitant to increase the Lasix because of CK D numbers. HEnce comanage with cardiology and nephrology. We all agreed to increase her Lasix from 40 by mouth once a day to twice a day. Creatinine is stable at 1.9 1.8 range on dc. No PT needs. She did request some Xanax and Tessalon Perles for scripts. I am Rx and Lasix 40 by mouth twice a day. She needs to follow-up her sediment nephrology doctor. And she will see Dr. Jones as outpatient Consults performed cardiology/renal Procedures performed none Discharge disposition home Discharge meds: increase Lasix to 40 by mouth twice a day Follow-up with Dr. Jones 1 month, repeat BMP Patient seen and examined, discharge time. 31 minutes greater than 50% discharge education counseling Discharge Information Condition at Discharge: Improved, Stable Disposition/Orders: D/C to Home Scheduled Alprazolam (Xanax) 0.5 Mg Tablet, 1 TAB PO TID, #90 Prescribed by: IDALIA ABERNATHY on 04/06/18 1109 Aspirin (Aspirin) 81 Mg Tab.chew, 1 TAB PO DAILY, #30 Ref 3 (Reported) Entered as Reported by: Bartolo Rodriguez on 06/24/16 0824 Last Action: Continued on 04/04/18 1225 by IDALIA ABERNATHY Atorvastatin Calcium (Atorvastatin Calcium) 40 Mg Tablet, 40 MG PO QHS, #30 Prescribed by: RHODA BENTON on 06/06/16 1230 Last Action: Continued on 04/04/18 1225 by IDALIA ABERNATHY Benzonatate (Benzonatate) 100 Mg Capsule, 100 MG PO PRN TID for 30 Days Prescribed by: IDALIA ABERNATHY on 04/06/18 1109 Carvedilol (Coreg) 3.125 Mg Tablet, 1 TAB PO BID, #180 Ref 1 (Reported) Entered as Reported by: BARTOLO GORDON on 08/22/17 1509 Last Action: Continued on 04/04/18 1225 by IDALIA ABERNATHY Dicyclomine Hcl (Dicyclomine Hcl) 10 Mg Capsule, 1 CAP PO TID, #90 Ref 11 ( Reported) Entered as Reported by: KAYLEE FLORIAN RN on 06/03/16 1832 Last Action: Continued on 04/04/18 1225 by IDALIA ABERNATHY Furosemide (Furosemide) 40 Mg Tablet, 1 TAB PO DAILY, #30 Ref 5 (Reported) Entered as Reported by: BARTOLO GORDON on 08/22/17 1523 Last Action: Continued on 04/04/18 1225 by IDALIA ABERNATHY Furosemide (Furosemide) 40 Mg Tablet, 40 MG PO BID92 for 30 Days, #60 Prescribed by: IDALIA ABERNATHY on 04/06/18 1109 Gabapentin (Gabapentin) 300 Mg Capsule, 300 PO DAILY, (Reported) Entered as Reported by: Radha Harris on 05/10/172108 Last Action: Converted on 04/04/181224 by IDALIA ABERNATHY Glipizide (Glipizide) 10 Mg Tablet, 0.5 TAB PO BID, #60 Ref 5 (Reported) Entered as Reported by: ANTOINETTE FERRARA on 05/11/171053 Last Action: Converted on 04/04/181224 by IDALIA ABERNATHY Hydrocodone/Apap 5-325 ([place] 5-325 Tablet) 1 Each Tablet, 1-2 TAB PO Q4-6HRS, # 20 Prescribed by: KAMI MONTIEL APRN on 08/15/171938 Last Action: HELD on 04/04/181224 by IDALIA ABERNATHY Ipratropium/Albuterol Sulfate (Duoneb 0.5-3(2.5) Mg/3 Ml) 3 Ml Ampul.neb, 3 ML NEB BID, #60 Prescribed by: NAZ VALENTINO on 06/25/16923 Last Action: Continued on 04/04/181224 by IDALIA ABERNATHY Omeprazole (Omeprazole) 40 Mg Capsule.dr, 1 CAP PO DAILY, #30 Ref 3 (Reported) Entered as Reported by: ANTOINETTE FERRARA on 05/11/171053 Last Action: Converted on 04/04/181224 by IDALIA ABERNATHY Prednisone (Prednisone) 50 Mg Tablet, 50 MG PO DAILY for 5 Days, #5 Prescribed by: KAMI MONTIEL APRN on 08/15/171938 Last Action: Converted on 04/04/181224 by IDALIA ABERNATHY Ticagrelor (Brilinta) 90 Mg Tablet, 90 MG PO BID, #60 Prescribed by: NAZ VALENTINO on 06/25/16923 Last Action: Continued on 04/04/181224 by IDALIA ABERNATHY Scheduled PRN Colchicine (Colcrys) 0.6 Mg Tablet, 0.6 MG PO every hour PRN for gout, #20 Take 1 pill every hour by mouth as needed for an acute gout attack up to 5 doses. Stop if you have nausea or stomach irritation. Prescribed by: IMAN MARTIN on 02/11/172210 Last Action: Continued on 04/04/181224 by IDALIA ABERNATHY Diclofenac Sodium (Voltaren) 100 Gm Gel..gram., 2 GM TP BID PRN for PAIN, #100 Ref 2 (Reported) Entered as Reported by: Bartolo Rodriguez on 06/24/16848 Last Action: Continued on 04/04/181224 by IDALIA ABERNATHY Hydrocodone/Apap 5-325 ([place] 5-325 Tablet) 1 Each Tablet, 1 TAB PO PRN Q6HRS PRN for PAIN, #14 Ref 0 Prescribed by: IMAN MARTIN on 02/11/172210 Last Action: Continued on 04/04/181224 by IDALIA ABERNATHY Mupirocin (Mupirocin Ointment) 22 Gm Oint...g., 1 SHREE TP TID PRN for PAIN, #1 ( Reported) Entered as Reported by: Bartolo Rodriguez on 06/24/16848 Last Action: Continued on 04/04/181224 by IDALIA ABERNATHY Nitroglycerin (NITROGLYCERIN SubLingual) 0.4 Mg Tab.subl, 0.4 MG SL PRN Q5MIN PRN for CHEST PAIN, (Reported) Entered as Reported by: Bartolo Rodriguez on 06/24/16848 Last Action: Continued on 04/04/181224 by IDALIA ABERNATHY Polyethylene Glycol 3350 (Miralax) 17 Gm Powd.pack, 1 PACKET PO DAILY PRN for CONSTIPATION, #30 Ref 3 (Reported) Entered as Reported by: KAYLEE FLORIAN RN on 06/03/16 183 Last Action: Converted on 04/04/181224 by IDALIA ABERNATHY Tizanidine Hcl (Tizanidine Hcl) 2 Mg Capsule, 2 MG PO QID PRN for MUSCLE SPASMS, (Reported) Entered as Reported by: Bartolo Rodriguez on 06/24/16848 Last Action: Converted on 04/04/181224 by IDALIA ABERNATHY Miscellaneous Medications Insulin Glargine,Hum.rec.anlog (Lantus) 100 Unit/1 Ml Vial, 30 UNIT SQ, ( Reported) Entered as Reported by: Bartolo Rodriguez on 06/24/16 0849 Last Action: Converted on 04/04/18 1225 by IDALIA PATEL MD Apr 06, 2018 11:12
--- NOTE | 2018-04-06 11:28 | PDOC ---
Renal-Progress Notes Subjective Notes Notes NONE History of Present Illness Hx of present illness STABLE Vitals Vitals Vital Signs Date Time Temp Pulse Resp B/P (MAP) Pulse Ox O2 Delivery O2 Flow Rate FiO2 04/06/18 07:00 97.5 69 95/47 (63) 97 Room Air 97.5 04/06/18 03:00 20 04/05/18 19:44 2.0 Weight Weight [ ] I.O. Intake and Output Intake and Output 04/06/18 07:00 Intake Total 2910 ml Output Total 1050 ml Balance 1860 ml Intake Oral 2910 ml Output Urine Total 1050 ml Labs Labs Laboratory Tests Test 04/05/18 16:10 04/05/18 20:51 04/06/18 03:45 04/06/18 08:14 Glucose (Fingerstick) 199 mg/dL (70-99) 149 mg/dL (70-99) 80 mg/dL (70-99) Sodium Level 138 mmol/L (136-145) Potassium Level 3.7 mmol/L (3.5-5.1) Chloride Level 103 mmol/L (98-107) Carbon Dioxide Level 32 mmol/L (21-32) Anion Gap 3 (6-14) Blood Urea Nitrogen 43 mg/dL (7-20) Creatinine 1.9 mg/dL (0.6-1.0) Estimated GFR (Cockcroft-Gault) 30.5 Glucose Level 113 mg/dL (70-99) Calcium Level 9.3 mg/dL (8.5-10.1) Phosphorus Level 4.9 mg/dL (2.6-4.7) Albumin 3.0 g/dL (3.4-5.0) Review of Systems Constitutional: yes: alert, oriented Ears/Nose/Throat: Yes: no symptom reported Eyes: Yes: no symptom reported Pulmonary: Yes no symptom reported Cardiovascular: Yes no symptom reported Gastrointestional: Yes: no symptom reported Genitourinary: Yes: no symptom reported Musculoskeletal: Yes: no symptom reported Skin: Yes no symptom reported Psychiatric/Neurological: Yes: no symptom reported Endocrine: Yes: no symptom reported Physical Exam General Appearance: no apparent distress Skin: warm Respiratory: decreased breath sounds Heart: S1S2 Abdomen: soft, bowel sounds present Genitourinary: bladder flat Neurology: alert, oriented Musculoskeletal: Other Assessment Assessment IMP CKD STAGE 3 -STABLE DM II HTN CHF PLAN CONT BID LASIX HOME TODAY D/W ATTENDING ALAYNA PRITCHARD MD Apr 06, 2018 11:28
== END 2018-04-06 13:40 | disposition home or self-care (01) | DRG 291 ==
LOC: ER 10:30 → 5 SOUTH 12:25
PROVIDERS: ADMIT Internal Medicine; ATTEND Internal Medicine
DX: I13.0 Hypertensive heart and chronic kidney disease with heart failure and stage 1 through stage 4 chronic kidney disease, or unspecified chronic kidney disease (principal); I50.43 Acute on chronic combined systolic (congestive) and diastolic (congestive) heart failure; N17.9 Acute kidney failure, unspecified; I25.10 Atherosclerotic heart disease of native coronary artery without angina pectoris; Z95.5 Presence of coronary angioplasty implant and graft; N18.3 Chronic kidney disease, stage 3 (moderate); E78.5 Hyperlipidemia, unspecified; J45.909 Unspecified asthma, uncomplicated; K21.9 Gastro-esophageal reflux disease without esophagitis; F41.9 Anxiety disorder, unspecified; M19.90 Unspecified osteoarthritis, unspecified site; Z98.49 Cataract extraction status, unspecified eye; E11.65 Type 2 diabetes mellitus with hyperglycemia; E11.22 Type 2 diabetes mellitus with diabetic chronic kidney disease; Z68.35 Body mass index [BMI] 35.0-35.9, adult; E66.9 Obesity, unspecified; I25.5 Ischemic cardiomyopathy; I25.2 Old myocardial infarction; I25.82 Chronic total occlusion of coronary artery; E03.9 Hypothyroidism, unspecified; Z88.6 Allergy status to analgesic agent; Z88.8 Allergy status to other drugs, medicaments and biological substances; E78.00 Pure hypercholesterolemia, unspecified; Z79.4 Long term (current) use of insulin; Z79.82 Long term (current) use of aspirin; Z86.711 Personal history of pulmonary embolism; Z90.710 Acquired absence of both cervix and uterus; M10.9 Gout, unspecified
CPT/HCPCS: 36415; 74022; 80053; 80069; 80307; 81001; 82553; 82962; 83735; 83880; 84484; 85025; 85610; 93005; 93306; 94640; 94760; J1815; J1940; J2270; J7620; 97110; 99285-25; G0479

== ENCOUNTER 2018-08-12 11:25 | Emergency (ER) | payer MEDICARE, OTHER ==
[~2018-08-12] VITALS: Ht 162.6 cm; Wt 93.0 kg
[~2018-08-12 11:25] MED LIST changes: +ACET650S PO; -ACET650S19 PO; +ALPR0.5T PO; +ALPR0.5T6 PO; +CARV6.2511 PO; -CARV6.252 PO; -GABA-586 PO; +GABA300C18 PO; -GABA300C8 PO; +HYDR-3164 PO; -HYDR-971 PO; +LOSA-73 PO; -LOSA25TA5 PO; +LOSA25TA54 PO; -LOSA50TA2 PO; +NITR1PAT5 TD; +NITR1PAT73 TD
--- NOTE | 2018-08-12 13:06 | PHYS DOC ---
Past Medical History Past Medical History: Anxiety, CAD, CHF, Diabetes-Type II, GERD, High Cholesterol, Heart Disease, Hypertension, RI, Other Additional Past Medical Histor: GOUT Past Surgical History: Angioplasty, Appendectomy, Cholecystectomy, Hysterectomy , Pacemaker, Other Additional Past Surgical Histo: cardiac stents, cardiac catheterization x4 Alcohol Use: None Drug Use: None Adult General Chief Complaint Chief Complaint: PAIN CONTROL HPI HPI Patient is a 83 year old who presents with left great toe and instep foot pain since yesterday. H/o gout. No trauma. [] Review of Systems Review of Systems Constitutional: Denies fever or chills [] Eyes: Denies change in visual acuity, redness, or eye pain [] HENT: Denies nasal congestion or sore throat [] Respiratory: Denies cough or shortness of breath [] Cardiovascular: No additional information not addressed in HPI [] GI: Denies abdominal pain, nausea, vomiting, bloody stools or diarrhea [] : Denies dysuria or hematuria [] Musculoskeletal: Denies back pain or joint pain [] Integument: Denies rash or skin lesions [] Neurologic: Denies headache, focal weakness or sensory changes [] Endocrine: Denies polyuria or polydipsia [] All other systems were reviewed and found to be within normal limits, except as documented in this note. Current Medications Current Medications Current Medications Medications (Trade) Dose Ordered Sig/Leena Start Time Stop Time Status Last Admin Dose Admin Oxycodone/ Acetaminophen (Percocet 5/325) 1 tab 1X ONCE 08/12/18 13:15 08/12/18 13:16 DC 08/12/18 13:27 1 TAB Allergies Allergies Allergies Coded Allergies Type Severity Reaction Last Updated Verified metformin Allergy Intermediate 02/11/17 Yes tramadol Allergy Intermediate 06/26/16 Yes Physical Exam Physical Exam Constitutional: Well developed, well nourished, no acute distress, non-toxic appearance. [] HENT: Normocephalic, atraumatic, bilateral external ears normal, oropharynx moist, no oral exudates, nose normal. [] Extremities: Left lower extremity, foot, no fx.. [] Neurologic: Alert and oriented X 3, normal motor function, normal sensory function, no focal deficits noted. [] Psychologic: Affect normal, judgement normal, mood normal. [] Current Patient Data Vital Signs Vital Signs Date Time Temp Pulse Resp B/P (MAP) Pulse Ox O2 Delivery O2 Flow Rate FiO2 08/12/18 13:23 96 08/12/18 11:56 98.3 73 20 115/56 (75) 98.3 Lab Values Laboratory Tests Test 08/12/18 12:08 08/12/18 14:20 Glucose (Fingerstick) 97 mg/dL (70-99) White Blood Count 7.6 x10^3/uL (4.0-11.0) Red Blood Count 3.64 x10^6/uL (3.50-5.40) Hemoglobin 11.5 g/dL (12.0-15.5) L Hematocrit 32.7 % (36.0-47.0) L Mean Corpuscular Volume 90 fL (79-100) Mean Corpuscular Hemoglobin 32 pg (25-35) Mean Corpuscular Hemoglobin Concent 35 g/dL (31-37) Red Cell Distribution Width 13.4 % (11.5-14.5) Platelet Count 183 x10^3/uL (140-400) Neutrophils (%) (Auto) 75 % (31-73) H Lymphocytes (%) (Auto) 15 % (24-48) L Monocytes (%) (Auto) 6 % (0-9) Eosinophils (%) (Auto) 3 % (0-3) Basophils (%) (Auto) 1 % (0-3) Neutrophils # (Auto) 5.7 x10^3uL (1.8-7.7) Lymphocytes # (Auto) 1.2 x10^3/uL (1.0-4.8) Monocytes # (Auto) 0.4 x10^3/uL (0.0-1.1) Eosinophils # (Auto) 0.2 x10^3/uL (0.0-0.7) Basophils # (Auto) 0.0 x10^3/uL (0.0-0.2) Sodium Level 143 mmol/L (136-145) Potassium Level 3.7 mmol/L (3.5-5.1) Chloride Level 105 mmol/L (98-107) Carbon Dioxide Level 27 mmol/L (21-32) Anion Gap 11 (6-14) Blood Urea Nitrogen 17 mg/dL (7-20) Creatinine 1.3 mg/dL (0.6-1.0) H Estimated GFR (Cockcroft-Gault) 47.3 Glucose Level 135 mg/dL (70-99) H Uric Acid 8.4 mg/dL (2.6-6.0) H Calcium Level 9.8 mg/dL (8.5-10.1) Laboratory Tests 08/12/18 14:20 Laboratory Tests 08/12/18 14:20 EKG EKG [] Radiology/Procedures Radiology/Procedures [X-ray: No evidence of acute fracture] Course & Med Decision Making Course & Med Decision Making Pertinent Labs and Imaging studies reviewed. (See chart for details) XR foot: no fracture, uric acid positive] Dragon Disclaimer Dragon Disclaimer This electronic medical record was generated, in whole or in part, using a voice recognition dictation system. Departure Departure Impression: Primary Impression: Gouty arthritis of left foot Disposition: 01 HOME, SELF-CARE Condition: GOOD Referrals: SHAMA DUEÑAS (PCP) Patient Instructions: Gout, [id number] Additional Instructions: You were evaluated in the emergency department for left foot pain. X-rays do not show evidence of fracture. Scripts Prednisone (PREDNISONE) 50 Mg Tablet 1 TAB PO DAILY, #5 TAB Prov: ENRIQUETA MARIE DO 08/12/18 ENRIQUETA MARIE DO Aug 12, 2018 13:06
[2018-08-12] MEDS ORDERED: oxyCODONE/APAP 5/325 1 TAB TABLET PO ONE (13:15)
--- NOTE | 2018-08-12 13:29 | RAD ---
FOOT LEFT 2V History: LEFT FOOT PAIN X 1WEEK, NO INJURY HX OF GOUT. Comparison: None are available Degenerative changes at the first MTP joint with marginal osteophytes. No evidence of an acute fracture. Enthesophytes at the calcaneus. Degenerative spurring at the tibiotalar joint. No evidence of bone destruction or acute fracture. No dislocation. There is some mild irregular cortical thickening among the tarsal bones, appears chronic and nonaggressive. IMPRESSION: Degenerative changes, no evidence of acute fracture or dislocation. Electronically signed by: Nas Eugene MD (08/12/2018 1:25 PM) [facility]
[2018-08-12 14:31] LABS: BASO % 1 % (0-3); EOS # 0.2 x10^3/uL (0.0-0.7); EOS % 3 % (0-3); HEMATOCRIT 32.7 % (36.0-47.0); HEMOGLOBIN 11.5 g/dL (12.0-15.5); LYMPH # 1.2 x10^3/uL (1.0-4.8); LYMPH % 15 % (24-48); MEAN CORPUSCULAR HEMOGLOBIN 32 pg (25-35); MEAN CORPUSCULAR HGB CONC 35 g/dL (31-37); MEAN CORPUSCULAR VOLUME 90 fL (79-100); MONO # 0.4 x10^3/uL (0.0-1.1); MONO % 6 % (0-9); NEUT # 5.7 x10^3uL (1.8-7.7); NEUT % 75 % (31-73); PLATELET COUNT 183 x10^3/uL (140-400); RED BLOOD COUNT 3.64 x10^6/uL (3.50-5.40); RED CELL DISTRIBUTION WIDTH 13.4 % (11.5-14.5); WHITE BLOOD COUNT 7.6 x10^3/uL (4.0-11.0)
[2018-08-12 14:45] LABS: CALCIUM 9.8 mg/dL (8.5-10.1); CREATININE 1.3 mg/dL (0.6-1.0); GFR 47.3; POTASSIUM 3.7 mmol/L (3.5-5.1)
[2018-08-12 14:48] LABS: URIC ACID 8.4 mg/dL (2.6-6.0)
[2018-08-12] MEDS ORDERED: predniSONE 10 MG TABLET PO ONE (15:00)
[2018-08-12 15:10] VITALS: BP 93/52
[2018-08-12] MEDS ORDERED: PRED50TA PO (15:10)
== END 2018-08-12 15:29 | disposition home or self-care (01) ==
LOC: ER 11:25
DX: M10.9 Gout, unspecified (principal); I25.10 Atherosclerotic heart disease of native coronary artery without angina pectoris; I11.0 Hypertensive heart disease with heart failure; I50.9 Heart failure, unspecified; E11.9 Type 2 diabetes mellitus without complications; K21.9 Gastro-esophageal reflux disease without esophagitis; E78.00 Pure hypercholesterolemia, unspecified; I25.2 Old myocardial infarction; Z95.5 Presence of coronary angioplasty implant and graft; Z95.0 Presence of cardiac pacemaker; Z88.8 Allergy status to other drugs, medicaments and biological substances
CPT/HCPCS: 36415; 73620; 80048; 82962; 84550; 85025; 99284; J7512

== ENCOUNTER → 2019-09-11 | Outpatient (CLI) | payer MEDICARE ==
[2019-08-05 09:51] VITALS: BP 112/81
[~2019-09-11] MED LIST changes: +ALBU2.5V8 NEB; +BUME2TAB3 PO; +COLC0.6T42 PO; +FLUT12HF2 IH; +LOSA25TA12 PO; +MAGN400T5 PO; +MONT10TA49 PO; -MONT10TA9 PO; -NITR1PAT5 TD; +NITR1PAT72 TD; +OMEP20CA16 PO; -OMEP20CA9 PO; +OMEP40CA45 PO; -OMEP40CA5 PO; +ONDA8TAB9 PO; -PANT40TA5 PO; +PANT40TA77 PO
--- NOTE | 2019-09-12 12:59 | RAD ---
History: Routine Screening. Technique: Bilateral digital mammographic routine views were obtained with CAD - computer aided detection. Comparison: 07/18/2014. Findings: Breast Tissue Density A : The breast tissue is predominately fatty replaced. In the right breast, an 11 mm oval, dense mass with irregular margins has developed from the previous mammogram in the middle third upper outer right breast, approximate 10 o'clock position 8 cm from the nipple. This needs additional imaging with targeted right breast ultrasound. In the left breast, there are no suspicious masses, microcalcifications or areas of architectural distortion. Impression: Incomplete. Right breast needs additional imaging BI-RADS Category 0: Incomplete. Recommend targeted ultrasound of the upper-outer quadrant right breast. . A mammogram does not have 100% sensitivity and therefore a negative imaging study should not delay further work up of a suspicious abnormality. The patient will receive a letter with the results in the mail. Patient information is entered into the reminder system with a target due date for the next screening mammogram. The patient will receive a reminder. "Our facility is accredited by the [employer] Mammography Program." BI-RADS 0 -- incomplete assessment
== END | disposition home or self-care (01) ==
LOC: MAMMO 09:51
PROVIDERS: ATTEND Internal Medicine
DX: Z12.31 Encounter for screening mammogram for malignant neoplasm of breast (principal)
CPT/HCPCS: 77063; 77067

== ENCOUNTER → 2019-09-13 | Outpatient (CLI) | payer MEDICARE ==
[2019-08-05 09:51] VITALS: BP 112/81
--- NOTE | 2019-09-13 12:20 | RAD ---
Examination: Limited right breast ultrasound. INDICATION: 84-year-old woman recalled from screening for right breast mass. COMPARISON: Screening mammogram of September 11, 2019 TECHNIQUE: Grayscale and color Doppler imaging of the upper-outer quadrant right breast in the area of mammographic concern was performed in addition to targeted ultrasound of the right axilla. FINDINGS: A 9 mm oval, antiparallel orientation mass with microlobulated and angular margins is identified in the right 10:00 position 8 cm from the nipple that correlates with the mammographic mass recalled from screening. Sonographic survey of the right axilla reveals no adenopathy. IMPRESSION: Suspicious 9 mm mass in the upper outer right breast. Recommend ultrasound-guided core needle biopsy. Discussed with the patient. BI-RADS Category 4 Findings suspicious for malignancy. Biopsy recommended. BI-RADS 4 -- suspicious abnormality, biopsy recommended
== END | disposition home or self-care (01) ==
LOC: US 11:24
PROVIDERS: ATTEND Internal Medicine
DX: R92.8 Other abnormal and inconclusive findings on diagnostic imaging of breast (principal)
CPT/HCPCS: 76641

== ENCOUNTER → 2019-10-03 | Outpatient (CLI) | payer MEDICARE ==
[2019-08-05 09:51] VITALS: BP 112/81
--- NOTE | 2019-10-03 09:33 | RAD ---
Examination: 1. Ultrasound-guided right breast core needle biopsy. 2. Right postprocedure diagnostic mammogram. INDICATION: 84-year-old woman recalled from screening for developing mass in the upper outer right breast which was subsequently recommended for ultrasound-guided core needle biopsy. COMPARISON: 09/11/2019 screening right mammogram and right diagnostic breast ultrasound of 09/13/2019. PROCEDURE: Informed consent was obtained and an appropriate procedural pause observed. Using standard sterile technique, ultrasound guidance and local anesthesia, multiple 14-gauge core biopsy samples using a spring-loaded needle and coaxial technique were obtained of the 11 mm mass in the upper-outer quadrant right breast. Thereafter, an S shaped biopsy marker was deployed at the biopsy site and hemostasis assured with direct breast compression for 10 minutes. A two-view right digital 2-D post procedure mammogram shows a satisfactory positioning of the biopsy marker at the superolateral margin of the mass with no postbiopsy hematoma. There are no apparent complications. The puncture site was dressed and postprocedure instructions were reviewed prior to patient discharge. IMPRESSION: Successful ultrasound-guided core needle biopsy of a mass in the upper outer right breast. Pathology results are pending. An addendum will be issued once pathology results become available
--- NOTE | 2019-10-04 16:06 | PATHOLOGY ---
[facility] Accession Number: [id number] . 01 Material submitted: . breast - RIGHT BREAST MASS 10:00 8CMFN 9MM. Modifiers: right . 01 Clinical history: . Right breast mass . 02 Diagnosis: Breast tissue, right breast mass 10:00 needle biopsies: - INVASIVE DUCTAL CARCINOMA, HISTOLOGIC GRADE 2. SEE COMMENT. (JPM:pit 10/04/2019) [facility] 10/04/2019 1450 Local . 02 Comment: Sections of the right breast mass at 10:00 needle biopsy reveal an invasive mammary carcinoma. Tumor cells are largely present in solid nests but do show focal tubule formation. The tumor cells show moderate nuclear pleomorphism. There are several mitotic figures identified. The invasive carcinoma measures up to approximately 4 mm in greatest dimension on the glass slide. There is a small focus of intermediate grade solid ductal carcinoma in situ within the adjacent breast tissue. There is no lymphovascular tumor invasion. There are no tumor associated calcifications. The morphologic findings are supportive of the diagnosis of invasive ductal carcinoma, histologic grade 2. Breast prognostic studies will be obtained, the results of which will be reported separately. The case is also examined by Dr. Jacobsen, who concurs with the diagnosis. (JPM:pit 10/04/2019) . 02 Electronically signed: . Dylan Melton MD, Pathologist NPI- [id number] . 01 Gross description: . The specimen is received in formalin, labeled "Tayla Hodges, right breast 10:00 8 cm FN" and consists of 3 needle cores of pink-yellow breast tissue measuring between 0.6 cm and 1.1 cm in length and 0.2 cm each in diameter which are entirely submitted in A1-A3. The specimen was collected at 8:49 AM on 10/03/2019 and placed in formalin at 8:51 AM. The cold ischemic time is 2 minutes and the total formalin fixation time is greater than 6 hours but less than 72 hours. (SDY; 10/03/2019) SYU/SYU 10/03/2019 1450 Local . 02 Pathologist provided ICD-10: C50.911 . 02 CPT . 541216 Specimen Comment: A courtesy copy of this report has been sent to [phone] Specimen Comment: [id number] Specimen Comment: Report sent to / DR ZIMMER Performed at: 01 [facility] [address], [place] [id number] MD Jesse Baez MD Phone: [phone] Performed at: 02 [facility] [address] [place], [place] [id number] MD Dylan Melton MD Phone: [phone]
== END ==
LOC: US 07:51
PROVIDERS: ATTEND Internal Medicine
DX: R92.8 Other abnormal and inconclusive findings on diagnostic imaging of breast (principal); C50.912 Malignant neoplasm of unspecified site of left female breast
CPT/HCPCS: 19083; 77065; 88305; 88361; C1713; 19081; 76942

== ENCOUNTER 2021-08-15 12:12 | Emergency (ER) | payer MEDICARE ==
[~2021-08-15] VITALS: Ht 162.6 cm; Wt 90.9 kg
[~2021-08-15 12:12] MED LIST changes: -COLC0.6T42 PO; +COLC0.6T45 PO; -DICL100G18 TP; +DICL100G54 TP; -LISI2.5T PO; +LISI2.5T12 PO; +LOSA-362 PO; -LOSA25TA12 PO; +MAGN400T48 PO; -MAGN400T5 PO; -OMEP40CA45 PO; +OMEP40CA7 PO; +POTA-116 PO; -POTA10TA12 PO
[2021-08-15] MEDS ORDERED: predniSONE 10 MG TABLET PO ONE (15:00)
--- NOTE | 2021-08-15 16:09 | RAD ---
Left hand x-rays 3 views HISTORY: Gout flare of thumb. FINDINGS: There is a bony erosion with overhanging edges at the head of the third digit intermediate phalanx adjacent to the DIP joint typical of chronic gout arthritic erosion. No fracture. No dislocat ion. The soft tissues are unremarkable. Milder bone spurring likely from osteoarthritis at the first MCP joint. IMPRESSION: No acute osseous injury. Arthrosis as described above. Electronically signed by: Kelvin Hendrickson MD (08/15/2021 4:07 PM) [id number]
[2021-08-15 16:19] LABS: BASO % 0 % (0-3); EOS # 0.3 x10^3/uL (0.0-0.7); EOS % 4 % (0-3); HEMATOCRIT 37.1 % (36.0-47.0); HEMOGLOBIN 12.6 g/dL (12.0-15.5); LYMPH # 0.8 x10^3/uL (1.0-4.8); LYMPH % 9 % (24-48); MEAN CORPUSCULAR HEMOGLOBIN 32 pg (25-35); MEAN CORPUSCULAR HGB CONC 34 g/dL (31-37); MEAN CORPUSCULAR VOLUME 93 fL (79-100); MONO # 0.9 x10^3/uL (0.0-1.1); MONO % 11 % (0-9); NEUT # 6.2 x10^3/uL (1.8-7.7); NEUT % 76 % (31-73); PLATELET COUNT 303 x10^3/uL (140-400); RED CELL DISTRIBUTION WIDTH 14.1 % (11.5-14.5); WHITE BLOOD COUNT 8.2 x10^3/uL (4.0-11.0)
[2021-08-15 16:36] LABS: CALCIUM 9.6 mg/dL (8.5-10.1); CREATININE 1.1 mg/dL (0.6-1.0); POTASSIUM 4.2 mmol/L (3.5-5.1)
[2021-08-15 16:39] LABS: C-REACTIVE PROTEIN 44.4 mg/L (0-3.3); URIC ACID 7.4 mg/dL (2.6-6.0)
[2021-08-15] MEDS ORDERED: METH4TAB2 PO (16:55)
[2021-08-15] MEDS ORDERED: CEPH500T PO (16:55)
--- NOTE | 2021-08-15 16:55 | PHYS DOC ---
Past Medical History Past Medical History: Anxiety, CAD, CHF, Diabetes-Type II, GERD, High Cholesterol, Heart Disease, Hypertension, CT, Other Additional Past Medical Histor: GOUT, PT HAS IMPLANTED DEFIBULATOR Past Surgical History: Angioplasty, Appendectomy, Cholecystectomy, Hysterectomy, Pacemaker, Other Additional Past Surgical Histo: cardiac stents, cardiac catheterization x4 Smoking Status: Never Smoker Alcohol Use: None Drug Use: None General Adult EDM: Chief Complaint: OTHER COMPLAINTS HPI: HPI: Patient is a 86-year-old female who presents to the emergency department complaining of a gout flareup of her left thumb. Patient reports this is typical for her gout flareups, she has either had it in her right great toe or her left thumb in the past. Patient reports her last gout arthritis flareup was approximately 1 year ago in which she was treated with a Medrol Dosepak that helped tremendously. Patient reports pain started approximately 2 days ago, patient states she noticed her thumb was turning red near her wrist area which is typical for her gout flareup, patient states this is what prompted her to come to the emergency department for gout treatment. Patient denies taking any medications at home for her pain, states she has a history of myocardial infarction's, has stents placed and is currently on Eliquis. Patient denies chest pains, shortness of breath, fevers or chills, patient denies other physical complaints or physical concerns. Review of Systems: Review of Systems: 14 body systems of review of systems have been reviewed. See HPI for pertinent positives and negative responses, otherwise all other systems are negative, nonpertinent or noncontributory. Constitutional: Negative except as outlined in HPI above. Skin: Negative except as outlined in HPI above. Eyes: Negative except as outlined in HPI above. HENT: Negative except as outlined in HPI above. Respiratory: Negative except as outlined in HPI above. Cardiovascular: Negative except as outlined in HPI above. GI: Negative except as outlined in HPI above. : Negative except as outlined in HPI above. Musculoskeletal: Negative except as outlined in HPI above. Integument: Negative except as outlined in HPI above. Neurologic: Negative except as outlined in HPI above. Endocrine: Negative except as outlined in HPI above. Lymphatic: Negative except as outlined in HPI above. Psychiatric: Negative except as outlined in HPI above. Heart Score: C/O Chest Pain: No Risk Factors: Risk Factors: DM, Current or recent (<one month) smoker, HTN, HLP, family history of CAD, obesity. Risk Scores: Score 0 - 3: 2.5% MACE over next 6 weeks - Discharge Home Score 4 - 6: 20.3% MACE over next 6 weeks - Admit for Clinical Observation Score 7 - 10: 72.7% MACE over next 6 weeks - Early Invasive Strategies Current Medications: Current Medications Medications (Trade) Dose Ordered Sig/Leena Start Time Stop Time Status Last Admin Dose Admin Prednisone (Prednisone) 50 mg 1X ONCE 08/15/21 15:00 08/15/21 15:01 DC 08/15/21 15:20 50 MG Allergies: Allergies: Allergies Coded Allergies Type Severity Reaction Last Updated Verified venlafaxine Allergy Mild Hives 08/15/21 Yes tramadol Adverse Reaction Intermediate WEIRD FEELING 08/15/21 Yes metformin Adverse Reaction Unknown WEAKNESS 08/15/21 Yes Physical Exam: PE: Constitutional: Well developed, well nourished, no acute distress, non-toxic appearance. 86-year-old female in no apparent distress. HENT: Normocephalic, atraumatic. Eyes: Conjunctiva normal, no discharge. Neck: Normal range of motion, no stridor. Cardiovascular: No cyanosis appreciated, distal cap refill less than 2 seconds. Lungs & Thorax: Patient is in no respiratory distress, no audible adventitious lung sounds appreciated. Abdomen: Nontender, no abnormalities noted. Skin: Warm, dry, no erythema, no rash. See extremity note for focused skin examination. Back: No tenderness, no deformities. Extremities: No tenderness, no cyanosis, no clubbing, ROM intact, no edema. Except for left thumb near proximal lateral #1 metacarpal skin surfaces are erythematous without swelling, distal cap refill less than 2 seconds, limited passive range of motion related to pain, pain to palpation of the erythematous area, patient has abduction/abduction/flexion/extension movements with pain elicited. No deformity appreciated. Neurologic: Alert and oriented X 3, normal motor function, normal sensory function, no focal deficits noted. Psychologic: Affect normal, judgement normal, mood normal. Current Patient Data: Labs: Laboratory Tests Test 08/15/21 15:45 08/15/21 16:10 Glucose (Fingerstick) 156 mg/dL (70-99) H White Blood Count 8.2 x10^3/uL (4.0-11.0) Red Blood Count 4.00 x10^6/uL (3.50-5.40) Hemoglobin 12.6 g/dL (12.0-15.5) Hematocrit 37.1 % (36.0-47.0) Mean Corpuscular Volume 93 fL (79-100) Mean Corpuscular Hemoglobin 32 pg (25-35) Mean Corpuscular Hemoglobin Concent 34 g/dL (31-37) Red Cell Distribution Width 14.1 % (11.5-14.5) Platelet Count 303 x10^3/uL (140-400) Neutrophils (%) (Auto) 76 % (31-73) H Lymphocytes (%) (Auto) 9 % (24-48) L Monocytes (%) (Auto) 11 % (0-9) H Eosinophils (%) (Auto) 4 % (0-3) H Basophils (%) (Auto) 0 % (0-3) Neutrophils # (Auto) 6.2 x10^3/uL (1.8-7.7) Lymphocytes # (Auto) 0.8 x10^3/uL (1.0-4.8) L Monocytes # (Auto) 0.9 x10^3/uL (0.0-1.1) Eosinophils # (Auto) 0.3 x10^3/uL (0.0-0.7) Basophils # (Auto) 0.0 x10^3/uL (0.0-0.2) Sodium Level 139 mmol/L (136-145) Potassium Level 4.2 mmol/L (3.5-5.1) Chloride Level 101 mmol/L (98-107) Carbon Dioxide Level 25 mmol/L (21-32) Anion Gap 13 (6-14) Blood Urea Nitrogen 20 mg/dL (7-20) Creatinine 1.1 mg/dL (0.6-1.0) H Estimated GFR (Cockcroft-Gault) 57.0 Glucose Level 190 mg/dL (70-99) H Uric Acid 7.4 mg/dL (2.6-6.0) H Calcium Level 9.6 mg/dL (8.5-10.1) C-Reactive Protein, Quantitative 44.4 mg/L (0-3.3) H Laboratory Tests 08/15/21 16:10 Laboratory Tests 08/15/21 16:10 Vital Signs: Vital Signs Date Time Temp Pulse Resp B/P (MAP) Pulse Ox O2 Delivery O2 Flow Rate FiO2 08/15/21 14:35 98.3 85 22 141/67 (91) 100 Room Air 98.3 EKG: EKG: [] Radiology/Procedures: Radiology/Procedures: STATUS: REG ER ORD. PHYSICIAN: IMAN HERRERA APRN REASON: Gout flareup proximal thumb PROCEDURE: HAND LEFT 3V Left hand x-rays 3 views HISTORY: Gout flare of thumb. FINDINGS: There is a bony erosion with overhanging edges at the head of the third digit intermediate phalanx adjacent to the DIP joint typical of chronic gout arthritic erosion. No fracture. No dislocation. The soft tissues are unremarkable. Milder bone spurring likely from osteoarthritis at the first MCP joint. IMPRESSION: No acute osseous injury. Arthrosis as described above. Electronically signed by: Kelvin Hendrickson MD (08/15/2021 4:07 PM) [id number] Course & Med Decision Making: Course & Med Decision Making Pertinent Labs and Imaging studies reviewed. (See chart for details) 86-year-old female, vital signs reviewed, presents emerged from concerning gouty flareup of the left thumb. Physical examination consistent with gout flareup however with erythematous skin surface, suspicious for cellulitis infection. We will order CBC, BMP, ESR, CRP, uric acid level, left hand x-ray. X-ray concerning for old gouty arthritis erosion with arthritic changes CBC unremarkable, BMP unremarkable except for ESR and CRP along with uric acid level elevated, discussed patient case and presentation with ED attending physician Dr. Haq who examined patient at bedside, Dr. Haq agrees with ED discharge planning and to include 50 mg p.o. prednisone in ED prior to discharge, Medrol Dosepak prescription, Keflex regimen for suspicion of cellulitic infection, discharged home, strict follow-up with primary care this week for reexamination, return to ER for increased pain or other concerns. Discussed with the patient all findings and diagnostic testing as well as the need to follow-up with their primary care provider for further evaluation and treatment or return to the ED if any new or worsening symptoms. Strict return precautions were also discussed at length, the patient voiced understanding and agreement with the discharge planning. The patient was nontoxic in appearance, in no apparent distress, and hemodynamically stable at the time of disposition. Dragon Disclaimer: Dragon Disclaimer: This electronic medical record was generated, in whole or in part, using a voice recognition dictation system. Departure Departure Impression: Primary Impression: Gout Qualified Codes: M10.9 - Gout, unspecified Disposition: HOME / SELF CARE / HOMELESS Condition: GOOD Referrals: DONTE MONTEIRO MD (PCP) Patient Instructions: Gout Additional Instructions: You were seen today in the emergency department for pain in your left wrist near your thumb area, this is most likely a gout flareup. You were started on a steroid today given 50 mg tablet. As we discussed I am prescribing you a Medrol Dosepak which is a steroid de-escalating dosing type medication, please take as directed until completed. Please follow-up with Dr. Monteiro for reevaluation this week, return to the emergency department for worsening symptoms or other concerns. Thank you for visiting our Emergency Department. It was a pleasure taking care of you today in the emergency department and we appreciate you trusting us with your care. If any additional problems come up don't hesitate to return to visit us. Please follow up with your primary care provider so they can plan additional care if needed and know about the problem that you had. If symptoms worsen come back to the Emergency Department. Any concerning symptoms that start such as chest pain, shortness of air, weakness or numbness on one side of the body, running high fevers or any other concerning symptoms return to the ER. EMERGENCY DEPARTMENT GENERAL DISCHARGE INSTRUCTIONS Thank you for coming to [facility] Emergency Department (ED) today and trusting us with you care. We trust that you had a positive experience in our Emergency Department. If you wish to speak to the department management, you may call the Director at [phone]. YOUR FOLLOW UP INSTRUCTIONS ARE FOLLOWS: 1. Do you have a private Doctor? If you do not have a private doctor, please ask for a resource list of physicians or clinics that may be able to assist you with follow up care. 2. The Emergency Physicain has interpreted your x-rays. The X-Ray specialist will also review them. If there is a change in the findings, you will be notified in 48 hours when at all possible. 3. A lab test or culture has been done, your results will be reviewed and you will be notified if you need a change in treatment. ADDITIONAL INSTRUCTIONS AND INFORMATION: 1. Your care today has been supervised by a physician who is specially trained in emergency care. Many problems require more than one evaluation for a complete diagnosis and treatment. We recommend that you schedule your follow up appointment as recommended to ensure complete treatment of you illness or injury. If you are unable to obtain follow up care and continue to have a problem, or if your condition worsens, we recommend that you return to the ED. 2. We are not able to safely determine your condition over the phone nor are we able to give sound medical advice over the phone. For these safety reasons, if you call for medical advice we will ask you to come to the ED for further evaluation. 3. If you have any questions regarding these discharge instructions please call the ED at [phone]. SAFETY INFORMATION: In the interest of safety, wellness, and injury prevention; we encourage you to wear your sealbelt, if you smoke; quite smoking, and we encourage family to use a protective helmet for bicycling and other sporting events that present an increased risk for head injury. IF YOUR SYMPTOMS WORSEN OR NEW SYMPTOMS DEVELOP, OR YOU HAVE CONCERNS ABOUT YOUR CONDITION; OR IF YOUR CONDITION WORSENS WHILE YOU ARE WAITING FOR YOUR FOLLOW UP APPOINTMENT; EITHER CONTACT YOUR PRIMARY CARE DOCTOR, THE PHYSICIAN WHOSE NAME AND NUMBER YOU WERE GIVEN, OR RETURN TO THE ED IMMEDIATELY. Scripts Cephalexin (CEPHALEXIN) 500 Mg Tablet 1 TAB PO BID for infection, #20 TAB 0 Refills Prov: IMAN HERRERA CERAMIC TILE SETTER 08/15/21 Methylprednisolone (MEDROL) 4 Mg Tab.ds.pk 1 PKG PO UD for gout flare up, #1 PKG 0 Refills Prov: IMAN HERRERA CERAMIC TILE SETTER 08/15/21 IMAN HERRERA CERAMIC TILE SETTER Aug 15, 2021 16:55
[2021-08-15 17:02] VITALS: BP 140/52
== END 2021-08-15 17:03 | disposition home or self-care (01) ==
LOC: ER 12:12
DX: M10.9 Gout, unspecified (principal); K21.9 Gastro-esophageal reflux disease without esophagitis; I11.0 Hypertensive heart disease with heart failure; I50.9 Heart failure, unspecified; E11.9 Type 2 diabetes mellitus without complications; E78.00 Pure hypercholesterolemia, unspecified; I25.10 Atherosclerotic heart disease of native coronary artery without angina pectoris; I25.2 Old myocardial infarction; Z95.5 Presence of coronary angioplasty implant and graft; Z88.6 Allergy status to analgesic agent; Z88.8 Allergy status to other drugs, medicaments and biological substances
CPT/HCPCS: 36415; 73130; 80048; 82962; 84550; 85025; 85651; 86140; 99284; J7512

== ENCOUNTER 2021-12-28 17:07 | Inpatient (IN) | payer MEDICARE ==
[~2021-12-28] VITALS: Ht 162.6 cm; Wt 97.5 kg
[~2021-12-28 17:07] MED LIST changes: +CEPH500T PO; +METH4TAB2 PO
[2021-12-28] MEDS ORDERED: DEXTROSE 50% 25 GM / 50ML DISP.SYRIN. IV ONE ×4 (17:20→23:00)
[2021-12-28 18:26] LABS: BASO % 0 % (0-3); EOS # 0.2 x10^3/uL (0.0-0.7); EOS % 6 % (0-3); HEMOGLOBIN 12.1 g/dL (12.0-15.5); LYMPH # 0.8 x10^3/uL (1.0-4.8); LYMPH % 19 % (24-48); MEAN CORPUSCULAR HEMOGLOBIN 31 pg (25-35); MEAN CORPUSCULAR HGB CONC 34 g/dL (31-37); MEAN CORPUSCULAR VOLUME 93 fL (79-100); MONO # 0.5 x10^3/uL (0.0-1.1); MONO % 12 % (0-9); NEUT # 2.7 x10^3/uL (1.8-7.7); NEUT % 63 % (31-73); PLATELET COUNT 218 x10^3/uL (140-400); RED BLOOD COUNT 3.87 x10^6/uL (3.50-5.40); RED CELL DISTRIBUTION WIDTH 14.2 % (11.5-14.5); WHITE BLOOD COUNT 4.3 x10^3/uL (4.0-11.0)
[2021-12-28 18:38] LABS: CALCIUM 8.7 mg/dL (8.5-10.1); CREATININE 1.8 mg/dL (0.6-1.0); GFR 32.3; POTASSIUM 4.7 mmol/L (3.5-5.1)
[2021-12-28 18:44] LABS: ALBUMIN 3.2 g/dL (3.4-5.0); ALBUMIN/GLOBULIN RATIO 0.9 (1.0-1.7); TOTAL BILIRUBIN 0.3 mg/dL (0.2-1.0); TOTAL PROTEIN 6.6 g/dL (6.4-8.2)
--- NOTE | 2021-12-28 19:13 | RAD ---
EXAM: XR CHEST 1V 12/28/2021 6:18 PM CLINICAL INDICATION: Dizziness COMPARISON: Chest radiograph 08/03/2019 TECHNIQUE: AP upright view the chest FINDINGS: Unchanged dual-lead left subclavian pacemaker/AICD. Unchanged mild cardiomegaly. The lungs are adequately expanded. No consolidation, pleural effusion, or pneumothorax. No acute osseous abnor mality. IMPRESSION: No acute cardiopulmonary abnormality. Electronically signed by: Savannah Muse MD (12/28/2021 7:11 PM) [facility]
[2021-12-28 19:38] LABS: BACTERIA,URINE 0 /HPF (0-FEW); HYALINE CASTS, URINE MODERATE /HPF; RBC,URINE 0 /HPF (0-2); WBC,URINE 0 /HPF (0-4)
[2021-12-28 21:28] VITALS: BP 116/64
[2021-12-29] VITALS (9 sets, daily range): BP systolic 99–117; BP diastolic 33–66
--- NOTE | 2021-12-29 01:06 | PHYS DOC ---
Past Medical History Past Medical History: Anxiety, CAD, CHF, Diabetes-Type II, GERD, High Cholesterol, Heart Disease, Hypertension, IN, Other Additional Past Medical Histor: GOUT, PT HAS IMPLANTED DEFIBULATOR Past Surgical History: Angioplasty, Appendectomy, Cholecystectomy, Hysterectomy, Pacemaker, Other Additional Past Surgical Histo: cardiac stents, cardiac catheterization x4, RIGHT BREAST Smoking Status: Never Smoker Alcohol Use: None Drug Use: None General Adult EDM: Chief Complaint: DIZZY/LIGHT HEADED HPI: HPI: 86-year-old female, past medical history CAD, cancer, hysterectomy, insulin- dependent diabetes, hypertension, high cholesterol, AICD, gout, appendectomy, cholecystectomy, presents with 1 day of feeling unwell, confused and dizzy. Review of Systems: Review of Systems: Constitutional: +dizziness/unwell, Denies fever or chills. [] Eyes: Denies change in visual acuity. [] HENT: Denies nasal congestion or sore throat. [] Respiratory: Denies cough or shortness of breath. [] Cardiovascular: Denies chest pain or edema. [] GI: Denies abdominal pain, nausea, vomiting, bloody stools or diarrhea. [] : Denies dysuria. [] Musculoskeletal: Denies back pain or joint pain. [] Integument: Denies rash. [] Neurologic: Denies headache, focal weakness or sensory changes. [] Endocrine: Denies polyuria or polydipsia. [] Lymphatic: Denies swollen glands. [] Psychiatric: Denies depression or anxiety. [] Heart Score: C/O Chest Pain: No Risk Factors: Risk Factors: DM, Current or recent (<one month) smoker, HTN, HLP, family history of CAD, obesity. Risk Scores: Score 0 - 3: 2.5% MACE over next 6 weeks - Discharge Home Score 4 - 6: 20.3% MACE over next 6 weeks - Admit for Clinical Observation Score 7 - 10: 72.7% MACE over next 6 weeks - Early Invasive Strategies Current Medications: Current Medications Medications (Trade) Dose Ordered Sig/Leena Start Time Stop Time Status Last Admin Dose Admin Dextrose (Dextrose 50%-Water Syringe) 25 gm 1X ONCE 12/28/21 18:00 12/28/21 18:01 DC 12/28/21 17:51 25 GM Allergies: Allergies: Allergies Coded Allergies Type Severity Reaction Last Updated Verified tramadol Adverse Reaction [facility] Yes Physical Exam: PE: Constitutional: elderly female, Well developed, well nourished, no acute distress, non-toxic appearance. [] HENT: Normocephalic, atraumatic, bilateral external ears normal, oropharynx moist, no oral exudates, nose normal. [] Eyes: PERRLA, EOMI, conjunctiva normal, no discharge. [] Neck: Normal range of motion, no tenderness, supple, no stridor. [] Cardiovascular:Heart rate regular rhythm, no murmur [] Lungs & Thorax: Bilateral breath sounds clear to auscultation [] Abdomen: Bowel sounds normal, soft, no tenderness, no masses, no pulsatile masses. [] Skin: Warm, dry, no erythema, no rash. [] Back: No tenderness, no CVA tenderness. [] Extremities: No tenderness, no cyanosis, no clubbing, ROM intact, no edema. [] Neurologic: Alert and oriented X 3, normal motor function, normal sensory function, no focal deficits noted. [] Psychologic: Affect normal, judgement normal, mood normal. [] Current Patient Data: Labs: Laboratory Tests Test 12/28/21 17:18 12/28/21 17:25 12/28/21 17:55 12/28/21 19:14 Glucose (Fingerstick) 32 mg/dL (70-99) *L 166 mg/dL (70-99) H White Blood Count 4.3 x10^3/uL (4.0-11.0) Red Blood Count 3.87 x10^6/uL (3.50-5.40) Hemoglobin 12.1 g/dL (12.0-15.5) Hematocrit 36.0 % (36.0-47.0) Mean Corpuscular Volume 93 fL (79-100) Mean Corpuscular Hemoglobin 31 pg (25-35) Mean Corpuscular Hemoglobin Concent 34 g/dL (31-37) Red Cell Distribution Width 14.2 % (11.5-14.5) Platelet Count 218 x10^3/uL (140-400) Neutrophils (%) (Auto) 63 % (31-73) Lymphocytes (%) (Auto) 19 % (24-48) L Monocytes (%) (Auto) 12 % (0-9) H Eosinophils (%) (Auto) 6 % (0-3) H Basophils (%) (Auto) 0 % (0-3) Neutrophils # (Auto) 2.7 x10^3/uL (1.8-7.7) Lymphocytes # (Auto) 0.8 x10^3/uL (1.0-4.8) L Monocytes # (Auto) 0.5 x10^3/uL (0.0-1.1) Eosinophils # (Auto) 0.2 x10^3/uL (0.0-0.7) Basophils # (Auto) 0.0 x10^3/uL (0.0-0.2) Sodium Level 143 mmol/L (136-145) Potassium Level 4.7 mmol/L (3.5-5.1) Chloride Level 106 mmol/L (98-107) Carbon Dioxide Level 26 mmol/L (21-32) Anion Gap 11 (6-14) Blood Urea Nitrogen 37 mg/dL (7-20) H Creatinine 1.8 mg/dL (0.6-1.0) H Estimated GFR (Cockcroft-Gault) 32.3 BUN/Creatinine Ratio 21 (6-20) H Glucose Level 47 mg/dL (70-99) L Calcium Level 8.7 mg/dL (8.5-10.1) Total Bilirubin 0.3 mg/dL (0.2-1.0) Aspartate Amino Transferase (AST) 26 U/L (15-37) Alanine Aminotransferase (ALT) 21 U/L (14-59) Alkaline Phosphatase 142 U/L (46-116) H Troponin I High Sensitivity 14 ng/L (4-50) OU-Dbf-[id number]-Type Natriuretic Peptide 736 pg/mL (0-449) H Total Protein 6.6 g/dL (6.4-8.2) Albumin 3.2 g/dL (3.4-5.0) L Albumin/Globulin Ratio 0.9 (1.0-1.7) L Urine Collection Type Unknown Urine Color (Auto) Colorless Urine Turbidity Clear Urine pH (Auto) 5.5 (<5.0-8.0) Urine Specific Keeler 1.009 (1.000-1.030) Urine Protein (Auto) Negative mg/dL (Negative) Urine Glucose (Auto)(UA) Negative mg/dL (Negative) Urine Ketones (Auto) Negative mg/dL (Negative) Urine Blood (Auto) Negative (Negative) Urine Nitrite (Auto) Negative (Negative) Urine Bilirubin (Auto) Negative (Negative) Urine Urobilinogen (Auto) Normal mg/dL (Normal) Urine Leukocyte Esterase (Auto) Negative (Negative) Urine RBC 0 /HPF (0-2) Urine WBC 0 /HPF (0-4) Urine Squamous Epithelial Cells Mod /LPF Urine Bacteria 0 /HPF (0-FEW) Urine Hyaline Casts Moderate /HPF Urine Mucus Slight /LPF Test 12/28/21 22:28 12/28/21 22:50 12/28/21 23:19 Glucose (Fingerstick) 34 mg/dL (70-99) *L 73 mg/dL (70-99) 161 mg/dL (70-99) H Laboratory Tests 12/28/21 17:25 Laboratory Tests 12/28/21 17:25 Vital Signs: Vital Signs Date Time Temp Pulse Resp B/P (MAP) Pulse Ox O2 Delivery O2 Flow Rate FiO2 12/28/21 21:28 98.2 62 20 116/64 (81) 95 Room Air 98.2 EKG: EKG: [] Radiology/Procedures: Radiology/Procedures: [] Course & Med Decision Making: Course & Med Decision Making Pertinent Labs and Imaging studies reviewed. (See chart for details) Additional Social History: PMD from non-affiliated facility. Patient Lives at home. Family History: Non-pertinent to today's complaint. Nursing Notes Reviewed Previous Medical Records requested via [facility] Web: Reviewed by me. EMERGENT LABS AND DIAGNOSTIC STUDIES: Results were reviewed and interpreted by me as below 12-lead EKG Interpretation by Go Alexandre MD: Normal Sinus Rhythm at 63 beats per minute Left axis Normal intervals No ectopy No PVC No other acute ST or T wave abnormalities Overall impression is unremarkable EKG PROCEDURE: PORTABLE CHEST 1V IMPRESSION: No acute cardiopulmonary abnormality. EMERGENCY DEPARTMENT COURSE/ MEDICAL DECISION MAKING: The patient was placed on a professor of french, continuous pulse oximetry and was given supplemental oxygen. I examined the patient, evaluated and addressed patient's chief complaint. Patient found to be hypoglycemic to 30s, status post D50 and improvement to BGM 160s. Patient at baseline mental status. Vitals within normal, well-appearing. The patient was treated with D50. Patient endorsing dizziness while ambulating recently. Patient states that she does comply with her insulin regimen. Patient states that she is on glipizide however I do not see documentation of glipizide on her med list,. Denies any active chest pain or shortness of breath. Upon conversation with Dr. Monteiro her PMD, she states that the patient has very poor medication compliance. Plan for admission to telemetry for dizziness and hypoglycemia (resolved) After evaluation, I believe the patient is at risk for decompensation and will require admission. However, patients abnormal vital signs/labs are not consistent with sepsis, and the patient does not meet the criteria for sepsis at this time. I discussed the patient's case with Dr. Monteiro, who expressed understanding and agreed to admit the patient. I suspect the patient will be hospitalized for at least 2 midnights. DIAGNOSTIC IMPRESSION: 1. Dizziness 2. hypoglycemia DISPOSITION: Disposition: Admit to tele under the service of Condition: stable Baldemar Disclaimer: Baldemar Disclaimer: This electronic medical record was generated, in whole or in part, using a voice recognition dictation system. Departure Departure Impression: Primary Impression: DM (diabetes mellitus) Additional Impressions: Dizziness Hypoglycemia Disposition: 09 ADMITTED INPATIENT Condition: INDIA GOMEZ MD December 29, 2021 01:06
[2021-12-29] MEDS ORDERED: COLCHICINE 0.6 MG TABLET PO PRN (08:30)
[2021-12-29] MEDS ORDERED: NITROGLYCERIN SUBLINGUAL 0.4 MG BOTTLE OF 25. SL PRN (08:30)
[2021-12-29] MEDS ORDERED: ALBUTEROL SULFATE 2.5 MG/3 ML NEBU. NEB PRN (08:30)
--- NOTE | 2021-12-29 08:46 | PDOC ---
Provider Note Date of Service: DATE: 12/29/21 TIME: 08:45 Provider Note H&P dictated #[id number] Justifications for Admission Other Justification DONTE ZIMMER MD December 29, 2021 08:46
[2021-12-29] MEDS: DICYCLOMINE HCL 10 MG CAPSULE PO SCH ×2 (09:00→14:00)
--- NOTE | 2021-12-29 09:21 | HP ---
DATE OF SERVICE: 12/29/2021 ADMIT DATE: 12/28/2021 HISTORY OF PRESENT ILLNESS: This 86-year-old female who is known to have history of diabetes mellitus, coronary artery disease, congestive heart failure, GERD, hypertension, asthma and multiple other issues including noncompliance, started having dizziness. The patient's blood sugars yesterday morning were 96 and 137. She took Lantus 30 units the previous night and Humalog 8 units yesterday morning. The patient's blood sugars have been extremely high for the last few years. She does not take her medications regularly and does not take insulin regularly. She recently declined home health services, [employer]. She has an appointment to see an hay baler at [facility] on 01/14. Recently, she started taking half the dose of her insulin and she started getting episodes of hypoglycemia. Yesterday, she was advised to go to the Emergency Room. In the Emergency Room, her blood sugar was noted to be 32 and this was treated with IV D50. Because of her dizziness, weakness and severe hypoglycemia, the patient was admitted for further evaluation and management. Her blood sugar initially went up to 166, but then again dropped to 34. It is not clear if she is also taking her glipizide. She has not been taking her Bumex and also has not been taking the Entresto given by her physician. Because of her multiple medical issues including dizziness and recurrent hypoglycemia, the patient is admitted for further evaluation and management. SYSTEMS REVIEW: The patient is complaining of dizziness and weakness, which is getting better this morning. She denies any nausea, vomiting, abdominal pain, cold, cough or congestion. No history of chest pains or palpitations. Other systems reviewed and are negative. PAST MEDICAL HISTORY: The patient has a history of combined systolic and diastolic congestive heart failure, asthma, coronary artery disease with history of coronary stents and reangioplasty and restenting previously, osteoarthritis, hyperlipidemia, severe noncompliance, asthma, allergic rhinitis, diabetes with hyperglycemia. She has an ejection fraction of 30%. She had a non-ST elevation [place] in 06/2016 with PCI and TRINITY to LAD and RCA. STEMI treated at [facility] in 06/2016 with total occlusion of both existing stents and aspiration thrombectomy, TRINITY to existing LAD and POBA to RCA. She has hypertension, myocardial infarction, hyperlipidemia, history of pulmonary embolism after abdominal surgery in 1973, constipation, gastroesophageal reflux disease, anemia, anxiety, osteoarthritis, CKD 2-3. Previous creatinine has been in the 1.35, diabetic neuropathy and hyperlipidemia. PAST SURGICAL HISTORY: Includes stents placed as previously noted, appendectomy, cholecystectomy, cataract removal, exploratory laparotomy due to ectopic pregnancies. FAMILY HISTORY: History of colon cancer in sister. Father had diabetes. SOCIAL HISTORY: No history of smoking, alcoholism, or drug abuse. The patient lives independently. ALLERGIES: THE PATIENT IS ALLERGIC TO TRAMADOL AND METFORMIN. MEDICATIONS: Reviewed and reconciled. PHYSICAL EXAMINATION: GENERAL: The patient is an elderly female who is alert, oriented, and not in acute distress. VITAL SIGNS: Temperature 97.5, pulse 64 per minute, respirations 24 per minute, blood pressure 103/54 mmHg. The patient is not in acute distress. EYES: Pupils reacting to light. Conjunctivae pink. Sclerae white. HENT: Unremarkable. NECK: Supple. JVP normal. No thyromegaly. Trachea midline. LUNGS: Clear. CARDIOVASCULAR SYSTEM: S1, S2, regular. ABDOMEN: Soft, nontender, no guarding, no rigidity. Bowel sounds present. EXTREMITIES: No edema, no cyanosis. CENTRAL NERVOUS SYSTEM: Alert and oriented, moves extremities. LABORATORY FINDINGS: As noted earlier. IMPRESSION: 1. Recurrent hypoglycemia. 2. Diabetes mellitus type 2 with hyperglycemia with recent A1c of 12.2. 3. Noncompliance. 4. Dizziness. 5. Coronary artery disease. 6. Hypotension. 7. Acute kidney injury. This time her creatinine is 1.8, previously it was 1.35. 8. Osteoarthritis. 9. Mixed hyperlipidemia. 10. Asthma. 11. Allergic rhinitis. 12. Sleep apnea, not on CPAP. 13. Moderate pulmonary hypertension. 14. Obesity. 15. Anemia. 16. Diverticulosis. 17. History of Helicobacter pylori and gastric biopsies. 18. Colonic polyps. 19. Diabetes mellitus type 2 with neuropathy. PLAN: Admit to the hospital. Monitor for falls. Start PT, OT. Consult Dr. Olivier for rehab evaluation and management. We will not give her any insulin, but continue to monitor blood sugars. I will hold a lot of her home medications, some of them she has not even been taking and some of them I am not sure if she is taking. For hypotension, we will hold some of her cardiac medications and consult Dr. Boyd for Cardiology evaluation and management. She may have taken glipizide, so it will not be safe to discharge her home today. Continue to monitor blood sugars. Recheck labs in the morning. For details, please refer to the orders. CARMELINA/JOSIAH DR: Tez TID: [id number]
--- NOTE | 2021-12-29 09:35 | PDOC2 ---
CARDIAC CONSULT DATE OF CONSULT Date of Consult DATE: 12/29/21 TIME: 09:18 REASON FOR CONSULT Reason for Consult: Dizziness REFERRING PHYSICIAN Referring Physician: Dr. Monteiro SOURCE Source: Chart review, Patient HISTORY OF PRESENT ILLNESS HISTORY OF PRESENT ILLNESS This is an 86 yo female who presented secondary to weakness and dizziness. Patient called daughter who brought her into the ED for further evaluation and t reatment. Blood sugar noted to be significantly low upon arrival. Was treated IV D50. Her blood sugar initially went up to 166, but then again dropped to 34 yesterday evening. Due to complains of dizziness, cardiology consultation was obtained. She denies any present dizziness, diaphoresis, chest pain, or shortness of breath. She normally follows with [facility]. Additional lab notable for CHANELL on CKD. Repots that cardiology practitioner took her off Lasix and potassium, but due to increased lower extremity edema, she resume her Lasix therapy. She then began having tingling in her fingers so she decided to start taking her potassium again. She denies any history of renal insufficiency and reports that Cr 1.8 is good. I did discuss normal Cr range and prior Cr in August of this year of 1.1. Reports she just wanted to known what we're going to do about her blood sugars. Noted per H and P that patient has a history of noncompliance. PAST MEDICAL HISTORY Past Medical History Cardiovascular: CAD (NSTEMI 05/2016 with PCI/TRINITY to LAD and RCA; STEMI treated at [facility] - 06/2016 with total occlusion of both existing stents; aspiration thrombectomy - TRINITY to existing LAD and POBA to RCA; discharged on ASA and Brilinta), CHF, HTN, Hyperlipidemia, ICD for ischemic cardiomyopathy - brand unknown Pulmonary: Asthma, Other (pulmonary embolus after abdominal surgery - 1973) CENTRAL NERVOUS SYSTEM: Other (none) GI: GERD Heme/Onc: Anemia NOS Hepatobiliary: No pertinent hx Psych: No pertinent hx Musculoskeletal: Osteoarthritis Rheumatologic: No pertinent hx Infectious disease: No pertinent hx ENT: No pertinent hx Renal/: CKD Endocrine: Diabetes, Hypothyroidism Dermatology: No pertinent hx PAST SURGICAL HISTORY Past Surgical History Appendectomy, Cholecystectomy, Cataract Removal, Other (exp lap due to ectopic pregnancies), ICD FAMILY HISTORY Family History: Diabetes SOCIAL HISTORY Social History Smoke: No ALCOHOL: none Drugs: None Lives: with Family CURRENT MEDICATIONS CURRENT MEDICATIONS Current Medications Medications (Trade) Dose Ordered Sig/Leena Route PRN Reason Start Time Stop Time Status Last Admin Dose Admin Dextrose (Dextrose 50%-Water Syringe) 25 gm 1X ONCE IV 12/28/21 18:00 12/28/21 18:01 DC 12/28/21 17:51 Dextrose (Dextrose 50%-Water Syringe) 25 gm 1X ONCE IV 12/28/21 23:00 12/28/21 23:01 DC 12/28/21 22:53 ALLERGIES ALLERGIES: Coded Allergies: venlafaxine (Verified Allergy, Intermediate, Hives, 12/28/21) metformin (Verified Adverse Reaction, Intermediate, WEAKNESS, 12/28/21) tramadol (Verified Adverse Reaction, Intermediate, WEIRD FEELING, 08/15/21) ROS Review of System 14 point ROS evaluated with pertinent positives noted per HPI PHYSICAL EXAM PHYSICAL EXAM General: Alert, Oriented X3, Cooperative, No acute distress HEENT: Atraumatic, Mucous membr. moist/pink Lungs: Other (diminished bases) Heart: Regular rate (SR), Normal S1, Normal S2, Other (2/6 systolic murmur to LLS border) Extremities: No cyanosis, Other (trace LE edema) Skin: No breakdown, No significant lesion Neuro: Normal speech, Sensation intact Psych/Mental Status: Mental status NL, Mood NL MUSCULOSKELETAL: Osteoarthritic changes both hands VITALS/I&O VITALS/I&O: Vital Signs Date Time Temp Pulse Resp B/P (MAP) Pulse Ox O2 Delivery O2 Flow Rate FiO2 12/29/21 07:00 97.7 67 18 108/50 (69) 97 Room Air 97.7 I & O 12/28/21 12/28/21 12/29/21 15:00 23:00 07:00 Output Total 0 ml Balance 0 ml LABS Lab: Laboratory Tests Test 12/28/21 17:18 12/28/21 17:25 12/28/21 17:55 12/28/21 19:14 Glucose (Fingerstick) 32 mg/dL (70-99) *L 166 mg/dL (70-99) H White Blood Count 4.3 x10^3/uL (4.0-11.0) Red Blood Count 3.87 x10^6/uL (3.50-5.40) Hemoglobin 12.1 g/dL (12.0-15.5) Hematocrit 36.0 % (36.0-47.0) Mean Corpuscular Volume 93 fL (79-100) Mean Corpuscular Hemoglobin 31 pg (25-35) Mean Corpuscular Hemoglobin Concent 34 g/dL (31-37) Red Cell Distribution Width 14.2 % (11.5-14.5) Platelet Count 218 x10^3/uL (140-400) Neutrophils (%) (Auto) 63 % (31-73) Lymphocytes (%) (Auto) 19 % (24-48) L Monocytes (%) (Auto) 12 % (0-9) H Eosinophils (%) (Auto) 6 % (0-3) H Basophils (%) (Auto) 0 % (0-3) Neutrophils # (Auto) 2.7 x10^3/uL (1.8-7.7) Lymphocytes # (Auto) 0.8 x10^3/uL (1.0-4.8) L Monocytes # (Auto) 0.5 x10^3/uL (0.0-1.1) Eosinophils # (Auto) 0.2 x10^3/uL (0.0-0.7) Basophils # (Auto) 0.0 x10^3/uL (0.0-0.2) Sodium Level 143 mmol/L (136-145) Potassium Level 4.7 mmol/L (3.5-5.1) Chloride Level 106 mmol/L (98-107) Carbon Dioxide Level 26 mmol/L (21-32) Anion Gap 11 (6-14) Blood Urea Nitrogen 37 mg/dL (7-20) H Creatinine 1.8 mg/dL (0.6-1.0) H Estimated GFR (Cockcroft-Gault) 32.3 BUN/Creatinine Ratio 21 (6-20) H Glucose Level 47 mg/dL (70-99) L Calcium Level 8.7 mg/dL (8.5-10.1) Total Bilirubin 0.3 mg/dL (0.2-1.0) Aspartate Amino Transferase (AST) 26 U/L (15-37) Alanine Aminotransferase (ALT) 21 U/L (14-59) Alkaline Phosphatase 142 U/L (46-116) H Troponin I High Sensitivity 14 ng/L (4-50) [id number]-Type Natriuretic Peptide 736 pg/mL (0-449) H Total Protein 6.6 g/dL (6.4-8.2) Albumin 3.2 g/dL (3.4-5.0) L Albumin/Globulin Ratio 0.9 (1.0-1.7) L Urine Collection Type Unknown Urine Color (Auto) Colorless Urine Turbidity Clear Urine pH (Auto) 5.5 (<5.0-8.0) Urine Specific [place] 1.009 (1.000-1.030) Urine Protein (Auto) Negative mg/dL (Negative) Urine Glucose (Auto)(UA) Negative mg/dL (Negative) Urine Ketones (Auto) Negative mg/dL (Negative) Urine Blood (Auto) Negative (Negative) Urine Nitrite (Auto) Negative (Negative) Urine Bilirubin (Auto) Negative (Negative) Urine Urobilinogen (Auto) Normal mg/dL (Normal) Urine Leukocyte Esterase (Auto) Negative (Negative) Urine RBC 0 /HPF (0-2) Urine WBC 0 /HPF (0-4) Urine Squamous Epithelial Cells Mod /LPF Urine Bacteria 0 /HPF (0-FEW) Urine Hyaline Casts Moderate /HPF Urine Mucus Slight /LPF Test 12/28/21 22:28 12/28/21 22:50 12/28/21 23:19 12/29/21 02:23 Glucose (Fingerstick) 34 mg/dL (70-99) *L 73 mg/dL (70-99) 161 mg/dL (70-99) H 204 mg/dL (70-99) H Test 12/29/21 07:08 Glucose (Fingerstick) 170 mg/dL (70-99) H Laboratory Tests 12/28/21 17:25 Laboratory Tests 12/28/21 17:25 ECHOCARDIOGRAM ECHOCARDIOGRAM [facility] 12/06/2018 Severely reduced left ventricular systolic function, estimated ejection fraction is 30%. The LV is mildly dilated with WMA, LAD distribution scar. Grade III (severe) left ventricular diastolic dysfunction. Elevated left atrial pressure. Right Ventricle was not well seen. M-Mode TAPSE cm (normal >1.7 cm). ICD lead is present. Mild mitral and tricuspid valve regurgitation. Estimated Peak Systolic PA Pressure 53 mmHg 10/30/21 - 2D + DOPPLER ECHO Interpretation Summary The left ventricular systolic function is moderately reduced. The visually estimated ejection fraction is 30%. There is diffuse hypokinesis. With an akinetic left ventricular apex. The right ventricular size is normal. The right ventricular systolic function is mildly reduced. No significant valvular abnormalities. Compared to prior study (07/15/2020): There is no significant change present. STRESS TEST STRESS TEST MPI 09/13/2018 [facility] SUMMARY/OPINION: This is an abnormal study. The left ventricle is mildly dilated, LV function is severely depressed, catheter ejection fraction 29%. The apex is akinetic, perhaps aneurysmal. There is a large size, severe intensity fixed perfusion abnormality involving the mid to apical anterior, anteroseptal, anteroapical segments. These findings are consistent with nonviable scarred myocardium in the distal LAD territory. Overall no ischemia is identified. The ECG portion study is unremarkable, not suggestive of ischemia. There are no prior studies available for comparison. In aggregate the current study is high risk in regards to predicted annual cardiovascular mortality rate. HEART CATH HEART CATH CORONARY ANGIOGRAPHY: LM is a large caliber vessel with normal angiographic appearance. LAD is a large caliber vessel with mild luminal irregularities, a mid stent with 20% diffuse ISR and a small caliber distal vessel. D1/D2 are small caliber vessels with mild luminal irregularities. LCx is a moderate caliber non-dominant vessel with an ostial to proximal 50% stenosis (unchanged from prior angiogram). OM1 is a small to moderate caliber vessel with mild luminal irregularities. RCA is a moderate caliber dominant vessel with a patent ostial/proximal stent, a patent mid stent and mild diffuse irregularities of the distal vessel of up to 20%. RPDA and RPL are small caliber vessels with normal angiographic appearance. Conclusion 1. Normal LVEDP 2. Three vessel coronary artery disease with patent stents in the LAD/RCA, overall disease burden and lesion appearance unchanged from prior angiogram. Recommendations Aggressive Medical Therapy DATE: 05/12/17 1024 CARDIAC CATHETERIZATION REPORT DATE: 12/06/2018 SELECTIVE CORONARY ANGIOGRAPHY: Left main coronary artery: The left main coronary artery is a medium caliber vessel which distally bifurcates into LAD and circumflex. The left main has mild luminal irregularities, but no high-grade lesions are seen. LAD: The LAD is a medium caliber vessel which gives off 2 very small and diffusely diseased diagonal branches. There are previously placed stents within the midportion of the LAD which are widely patent. There are several areas of mild plaquing throughout the LAD, but no stenosis greater than 30% is present. Left circumflex: The circumflex is a medium caliber vessel which gives off 2 obtuse marginal branches. The proximal portion of the circumflex has irregular plaquing with stenosis of 50% to 60%. The distal vessel has mild luminal irregularities, but no high-grade lesions are seen. Right coronary artery: The right coronary artery is a medium caliber vessel which is dominant. There are previously placed stents in the midportion of the AV groove segment. There is proximal mild plaquing, and a 30% to 40% stenosis in the mid to distal portion, a 40% stenosis in the distal AV groove segment, and a 50% stenosis at the ostium of the posterior descending coronary artery. The stents are widely patent. IMPRESSION: Right heart catheterization as above detailing decreased cardiac output and increased pulmonary capillary wedge pressure. Elevated left ventricular end-diastolic pressure. Patent stents in the LAD and RCA. Moderate disease in the circumflex. RECOMMENDATIONS: Medical therapy for heart failure. ASSESSMENT/PLAN ASSESSMENT/PLAN 1. Weakness, dizziness in setting of profound hypoglycemia. Blood pressure also low end- home antiHTN therapy held 2. Chronic systolic/diastolic CHF; appears compensated 3. ICM; s/p ICD. Echo 12/24 with LVEF 30% 4. CAD s/p PCI/stents. Cath 2018 with patent LAD/RCA stents as noted above. Follows with [facility] 5. CHANELL on CKD; Bumex held 6. DM, II; as per IM 7. Breast CA, marginal zone lymphoma; follows [facility] 8. PAFIB; Maintaining SR. 9. COPD Recommendations Check orthos Continue secondary prevention HF optimization as BP allows Diabetes management as per IM Supportive care MICHAEL VILLARREAL APRN December 29, 2021 09:34
[2021-12-29] MEDS: CLOPIDOGREL BISULFATE 75 MG TABLET PO SCH (10:32)
[2021-12-29] MEDS: MAGNESIUM OXIDE 400 MG TABLET PO SCH ×3 (10:43→21:11)
[2021-12-29] MEDS: PANTOPRAZOLE 40 MG TABLET.DR. PO SCH (10:43)
[2021-12-29] MEDS: ASPIRIN CHEWABLE 81 MG TABLET. PO SCH (10:44)
[2021-12-29] MEDS: GABAPENTIN 100 MG CAPSULE. PO SCH ×2 (15:13→21:16)
--- NOTE | 2021-12-29 16:09 | NUR ---
SS following for discharge planning. SS reviewed pt chart and discussed with pt RN. Pt is from home and is currently on room air. PT recommended home. Cardiology following. SS will continue to follow for discharge planning.
--- NOTE | 2021-12-29 18:35 | NUR ---
Nurse's note: The patient's IV was not patent and was removed. She disagreed to have a new IV access placed, told this nurse that if her sugar becomes low, she'll prefer glucose tablet or gel than IV dextrose. The patient also asked for her gabapentin. This nurse discussed with her that the dose was adjusted due to her clinical presentation. Called Dr. Monteiro, new orders received and was instructed that it's ok leave out the IV. Will monitor.
[2021-12-29] MEDS ORDERED: ATORVASTATIN CALCIUM 40 MG TABLET. PO SCH (21:00)
[2021-12-29] MEDS ORDERED: GABAPENTIN 100 MG CAPSULE. PO SCH (21:00)
[2021-12-30 03:16] VITALS: BP 132/51
[2021-12-30 03:18] VITALS: BP 132/51
[2021-12-30] MEDS: PANTOPRAZOLE 40 MG TABLET.DR. PO SCH (06:29)
[2021-12-30 07:00] VITALS: BP 124/63
--- NOTE | 2021-12-30 08:35 | PDOC ---
MICHAEL VILLARREAL ANABEL 12/30/21 0835: CARDIO Progress Notes Date and Time Date of Service 12/30/21 Time of Evaluation 0830 Subjective Subjective: No Chest Pain, No shortness of breath, No Palpitations, No Dizziness Vitals Vitals Vital Signs Date Time Temp Pulse Resp B/P (MAP) Pulse Ox O2 Delivery O2 Flow Rate FiO2 12/30/21 07:00 98.1 78 18 124/63 (83) 97 Room Air 98.1 Weight Weight [ ] Input and Output Intake and Output Intake and Output 12/30/21 07:00 Intake Total 600 ml Balance 600 ml Intake Oral 600 ml # Voids 3 Laboratory Labs Laboratory Tests Test 12/29/21 11:20 12/29/21 16:41 12/29/21 20:27 12/30/21 07:01 Glucose (Fingerstick) 133 mg/dL (70-99) 191 mg/dL (70-99) 220 mg/dL (70-99) 143 mg/dL (70-99) Physical Exam HEENT: Neck Supple W Full Motion Chest: Symmetric LUNGS: Clear to Auscultation Heart: RRR Abdomen: Soft N/T Extremities: No Edema Neurology: alert, oriented, follow commands Assessment Assessment 1. Weakness, dizziness in setting of profound hypoglycemia. Blood pressure also low end- home antiHTN therapy held. Orthos negative 2. Chronic systolic/diastolic CHF; appears compensated 3. ICM; s/p ICD. Echo 12/24 with LVEF 30% 4. CAD s/p PCI/stents. Cath 2018 with patent LAD/RCA stents as noted above. Follows with [facility] 5. CHANELL on CKD; Bumex held 6. DM, II; as per IM 7. Breast CA, marginal zone lymphoma; follows [facility] 8. PAFIB; Maintaining SR. 9. COPD Recommendations Continue secondary prevention HF optimization as able Diabetes management as per IM Supportive care Follow up with [facility] upon discharge Justicifation of Admission Dx: Justifications for Admission: Justification of Admission Dx: Yes Comments: dizziness Profound hypoglycemia KAMALA CAMP MD 12/30/21 1810: CARDIO Progress Notes Assessment Assessment Patient seen and examined She looks and feels significantly better today. I agree with our nurse practitioners assessment and plan. Weakness, dizziness in setting of profound hypoglycemia. Blood pressure also low end- home antiHTN therapy held. Orthos negative. Feeling better. Chronic systolic/diastolic CHF; appears compensated ICM; s/p ICD. Echo 12/24 with LVEF 30% CAD s/p PCI/stents. Cath 2018 with patent LAD/RCA stents as noted above. Follows with [facility] CHANELL on CKD; Bumex held. Improved DM, II; as per IM Breast CA, marginal zone lymphoma; follows [facility] PAFIB; Maintaining SR. COPD MICHAEL VILLARREAL APRN December 30, 2021 08:35 KAMALA CAMP MD December 30, 2021 18:10
[2021-12-30] MEDS: CLOPIDOGREL BISULFATE 75 MG TABLET PO SCH (08:36)
[2021-12-30] MEDS: MAGNESIUM OXIDE 400 MG TABLET PO SCH (08:36)
[2021-12-30] MEDS: GABAPENTIN 100 MG CAPSULE. PO SCH (08:36)
[2021-12-30] MEDS: ASPIRIN CHEWABLE 81 MG TABLET. PO SCH (08:36)
--- NOTE | 2021-12-30 09:10 | CONS ---
DATE OF CONSULTATION: 12/29/2021 I saw her at the request of Dr. Azul Monteiro on 12/29 2021. She is in room 502. HISTORY OF PRESENT ILLNESS: This is an 86-year-old right-handed female, retired. The patient was admitted through the Emergency Room with hypoglycemia in a patient with known diabetes mellitus. She also complained of dizziness. The patient admits pain in her right wrist, left wrist, some stiffness of her left thumb and middle finger and lower back pain. The patient with known history of coronary artery disease, anxiety, congestive heart failure, diabetes mellitus type 2, gastroesophageal reflux disease, hypercholesterolemia, hypertension, previous myocardial infarction, gouty arthritis, defibrillator implanted, status post angioplasty, appendectomy, cholecystectomy, hysterectomy, permanent pacemaker placement, cardiac stent. ALLERGIES: THE PATIENT IS KNOWN ALLERGIC TO METFORMIN, TRAMADOL AND BENTAPAXINE. PHYSICAL EXAMINATION: Today revealed an elderly female. She is alert, oriented to time, place, person and circumstance, follows commands appropriately. Moves all 4 extremities voluntarily where she had 4+/5 grade muscle strength. Deep tendon reflexes are slightly exaggerated at both knees, 2+ at left ankle, 1+ at right ankle. She had equal perception of touch and pinprick sensation bilaterally. The patient had crepitus on range of motion of both knee joints. She had tenderness to palpation over sacroiliac joint area. Straight leg raising test is negative bilaterally. She had painful limited movements of her lumbar spine. Some tenderness to palpation over dorsal aspect of her wrist, mostly over ulnar side and also tenderness to palpation over left thumb and middle finger at metacarpophalangeal joint area or palmar aspect without any triggering. She had no crepitus on range of motion of her wrist. She is independent with bed mobility, transfers and up walking without any difficulties. She had some difficulty trying to walk on her tiptoes and on a straight line, one foot in front of the other, but she can walk on her heels. She is not using proper body mechanics during mobility. ASSESSMENT: Elderly female with chronic lower back pain from degenerative disk disease of lumbar vertebrae without any clinical evidence of ongoing lumbar radiculopathy, degenerative joint disease of both knees without much pain, chronic sprain and tendinitis of both wrists and tenosynovitis of left middle finger and thumb without any triggering, radiological evidence of degenerative disk disease and degenerative joint disease of cervical vertebrae with mild degree of cervical spinal stenosis. RECOMMENDATIONS: I have advised her in a home program of physical modalities, stretching exercises to her lower back and also physical modalities in the form of paraffin bath to both hands and wrist followed by stretching exercises, use wrist cock-up splint when she is using her right hand actively. She does not need to use finger splint to her left middle finger. To consider injecting painful left sacroiliac joint area and also left finger and thumb if problem persists. Home when medically stable with outpatient followup. Dr. Monteiro appreciate asking me to participate in the care of this interesting patient. I will be glad to see her for followup with you on as needed basis. LEBRON/LUNA/ASHLIE DR: LEBRON/dionicio TID: [id number]
[2021-12-30] MEDS ORDERED: INSU200I SQ (09:22)
[2021-12-30] MEDS ORDERED: GABA300C18 PO (09:22)
--- NOTE | 2021-12-30 09:22 | PDOC ---
PROGRESS NOTES Date of Service DATE: 12/30/21 TIME: 09:20 Subjective Subjective No new complaints. Objective Objective Vital Signs Date Time Temp Pulse Resp B/P (MAP) Pulse Ox O2 Delivery O2 Flow Rate FiO2 12/30/21 07:00 98.1 78 18 124/63 (83) 97 Room Air 98.1 Intake and Output 12/30/21 07:00 Intake Total 600 ml Balance 600 ml Intake Oral 600 ml # Voids 3 Physical Exam Physical Exam She is alert,sitting in bed side recliner and she is indepndent with her mobility and self care not using any assistive devices. Assessment Assessment Problems Medical Problems: (1) Dizziness Status: Acute (2) DM (diabetes mellitus) Status: Acute (3) Hypoglycemia Status: Acute Plan Plan of Care Agree with plans for home without patient follow up. I spoke to . Comment Review of Relevant I have reviewed the following items mina (where applicable) has been applied. Labs Laboratory Tests Test 12/28/21 17:18 12/28/21 17:25 12/28/21 17:55 12/28/21 19:14 Glucose (Fingerstick) 32 mg/dL (70-99) 166 mg/dL (70-99) White Blood Count 4.3 x10^3/uL (4.0-11.0) Red Blood Count 3.87 x10^6/uL (3.50-5.40) Hemoglobin 12.1 g/dL (12.0-15.5) Hematocrit 36.0 % (36.0-47.0) Mean Corpuscular Volume 93 fL (79-100) Mean Corpuscular Hemoglobin 31 pg (25-35) Mean Corpuscular Hemoglobin Concent 34 g/dL (31-37) Red Cell Distribution Width 14.2 % (11.5-14.5) Platelet Count 218 x10^3/uL (140-400) Neutrophils (%) (Auto) 63 % (31-73) Lymphocytes (%) (Auto) 19 % (24-48) Monocytes (%) (Auto) 12 % (0-9) Eosinophils (%) (Auto) 6 % (0-3) Basophils (%) (Auto) 0 % (0-3) Neutrophils # (Auto) 2.7 x10^3/uL (1.8-7.7) Lymphocytes # (Auto) 0.8 x10^3/uL (1.0-4.8) Monocytes # (Auto) 0.5 x10^3/uL (0.0-1.1) Eosinophils # (Auto) 0.2 x10^3/uL (0.0-0.7) Basophils # (Auto) 0.0 x10^3/uL (0.0-0.2) Sodium Level 143 mmol/L (136-145) Potassium Level 4.7 mmol/L (3.5-5.1) Chloride Level 106 mmol/L (98-107) Carbon Dioxide Level 26 mmol/L (21-32) Anion Gap 11 (6-14) Blood Urea Nitrogen 37 mg/dL (7-20) Creatinine 1.8 mg/dL (0.6-1.0) Estimated GFR (Cockcroft-Gault) 32.3 BUN/Creatinine Ratio 21 (6-20) Glucose Level 47 mg/dL (70-99) Calcium Level 8.7 mg/dL (8.5-10.1) Total Bilirubin 0.3 mg/dL (0.2-1.0) Aspartate Amino Transf (AST/SGOT) 26 U/L (15-37) Alanine Aminotransferase (ALT/SGPT) 21 U/L (14-59) Alkaline Phosphatase 142 U/L (46-116) Troponin I High Sensitivity 14 ng/L (4-50) JV-Zwh-X-Type Natriuretic Peptide 736 pg/mL (0-449) Total Protein 6.6 g/dL (6.4-8.2) Albumin 3.2 g/dL (3.4-5.0) Albumin/Globulin Ratio 0.9 (1.0-1.7) Urine Collection Type Unknown Urine Color (Auto) Colorless Urine Turbidity Clear Urine pH (Auto) 5.5 (<5.0-8.0) Urine Specific [place] 1.009 (1.000-1.030) Urine Protein (Auto) Negative mg/dL (Negative) Urine Glucose (Auto)(UA) Negative mg/dL (Negative) Urine Ketones (Auto) Negative mg/dL (Negative) Urine Blood (Auto) Negative (Negative) Urine Nitrite (Auto) Negative (Negative) Urine Bilirubin (Auto) Negative (Negative) Urine Urobilinogen (Auto) Normal mg/dL (Normal) Urine Leukocyte Esterase (Auto) Negative (Negative) Urine RBC 0 /HPF (0-2) Urine WBC 0 /HPF (0-4) Urine Squamous Epithelial Cells Mod /LPF Urine Bacteria 0 /HPF (0-FEW) Urine Hyaline Casts Moderate /HPF Urine Mucus Slight /LPF Test 12/28/21 22:28 12/28/21 22:50 12/28/21 23:19 12/29/21 02:23 Glucose (Fingerstick) 34 mg/dL (70-99) 73 mg/dL (70-99) 161 mg/dL (70-99) 204 mg/dL (70-99) Test 12/29/21 07:08 12/29/21 11:20 12/29/21 16:41 12/29/21 20:27 Glucose (Fingerstick) 170 mg/dL (70-99) 133 mg/dL (70-99) 191 mg/dL (70-99) 220 mg/dL (70-99) Test 12/30/21 07:01 Glucose (Fingerstick) 143 mg/dL (70-99) Laboratory Tests Test 12/29/21 11:20 12/29/21 16:41 12/29/21 20:27 12/30/21 07:01 Glucose (Fingerstick) 133 mg/dL (70-99) 191 mg/dL (70-99) 220 mg/dL (70-99) 143 mg/dL (70-99) Medications Current Medications Dextrose (Dextrose 50%-Water Syringe) 25 gm STK-MED ONCE IV ; Start 12/28/21 at 17:20; Stop 12/28/21 at 17:20; Status DC Dextrose (Dextrose 50%-Water Syringe) 25 gm 1X ONCE IV Last administered on 12/28/21at 17:51; Start 12/28/21 at 18:00; Stop 12/28/21 at 18:01; Status DC Dextrose (Dextrose 50%-Water Syringe) 25 gm STK-MED ONCE IV ; Start 12/28/21 at 22:30; Stop 12/28/21 at 22:30; Status DC Dextrose (Dextrose 50%-Water Syringe) 25 gm 1X ONCE IV Last administered on 12/28/21at 22:53; Start 12/28/21 at 23:00; Stop 12/28/21 at 23:01; Status DC Albuterol Sulfate (Ventolin Neb Soln) 2.5 mg PRN Q6HRS PRN NEB SHORTNESS OF BREATH; Start 12/29/21 at 08:30 Aspirin (Aspirin Chewable) 81 mg DAILY PO Last administered on 12/30/21at 08:36; Start 12/29/21 at 09:00 Atorvastatin Calcium (Lipitor) 40 mg QHS PO Last administered on 12/29/21at 21:11; Start 12/29/21 at 21:00 Clopidogrel Bisulfate (Plavix) 75 mg DAILY PO Last administered on 12/30/21at 08:36; Start 12/29/21 at 09:00 Colchicine (Colcrys) 0.6 mg PRN DAILY PRN PO SEE COMMENTS; Start 12/29/21 at 08:30 Dicyclomine HCl (Bentyl) 10 mg TID PO ; Start 12/29/21 at 09:00; Stop 12/29/21 at 14:57; Status DC Magnesium Oxide (Magnesium Oxide) 400 mg TID PO Last administered on 12/30/21at 08:36; Start 12/29/21 at 09:00 Nitroglycerin (Nitrostat) 0.4 mg PRN Q5MIN PRN SL CHEST PAIN; Start 12/29/21 at 08:30 Pantoprazole Sodium (Protonix) 40 mg DAILYAC PO Last administered on 12/30/21at 06:29; Start 12/29/21 at 09:00 Gabapentin (Neurontin) 300 mg QHS PO ; Start 12/29/21 at 21:00; Stop 12/29/21 at 14:57; Status DC Gabapentin (Neurontin) 200 mg BID PO Last administered on 12/30/21at 08:36; Start 12/29/21 at 15:00 Active Scripts Active Medrol (Methylprednisolone) 4 Mg Tab.ds.pk 1 Pkg PO UD Proair Hfa (Albuterol Sulfate) 8.5 Gm Hfa.aer.ad 2.5 Mg NEB PRN Q6HRS PRN 30 Days Metoprolol Tartrate 25 Mg Tablet 12.5 Mg PO BID 30 Days Magnesium Oxide 400 Mg Tablet 400 Mg PO TID 30 Days Atorvastatin Calcium 40 Mg Tablet 40 Mg PO QHS Reported Advair Hfa 115-21 Mcg Inhaler (Fluticasone/Salmeterol) 12 Gm Hfa.aer.ad 1 Puff IH BID Colchicine 0.6 Mg Tablet 0.6 Mg PO PRN DAILY PRN Losartan Potassium 25 Mg Tablet 12.5 Mg PO DAILY Bumetanide 2 Mg Tablet 1 Mg PO DAILY Clopidogrel (Clopidogrel Bisulfate) 75 Mg Tablet 1 Tab PO DAILY Omeprazole 40 Mg Capsule.dr 1 Cap PO DAILY Gabapentin 300 Mg Capsule 300 Mg PO TID Tizanidine Hcl 2 Mg Capsule 2 Mg PO DAILY NITROGLYCERIN SubLingual (Nitroglycerin) 0.4 Mg Tab.subl 0.4 Mg SL PRN Q5MIN PRN Lantus (Insulin Glargine,Hum.rec.anlog) 100 Unit/1 Ml Vial 50 Unit SQ HS Aspirin 81 Mg Tab.chew 1 Tab PO DAILY Vitals/I & O Vital Sign - Last 24 Hours 12/29/21 12/29/21 12/29/21 12/29/21 11:13 12:00 13:23 13:24 Temp 97.5 97.5 Pulse 63 67 67 Resp 18 18 18 B/P (MAP) 101/43 (62) 108/45 (66) 99/33 (55) Pulse Ox 98 100 98 95 O2 Delivery Room Air Room Air Room Air Room Air 12/29/21 12/29/21 12/29/21 12/29/21 13:25 15:00 19:00 20:00 Temp 97.8 98.0 97.8 98.0 Pulse 66 70 72 Resp 18 18 20 B/P (MAP) 112/48 (69) 107/47 (67) 114/66 (82) Pulse Ox 94 98 96 O2 Delivery Room Air Room Air Room Air Room Air 12/29/21 12/30/21 12/30/21 23:00 03:18 07:00 Temp 98.2 98.4 98.1 98.2 98.4 98.1 Pulse 76 72 78 Resp 20 20 18 B/P (MAP) 117/51 (73) 132/51 (78) 124/63 (83) Pulse Ox 98 95 97 O2 Delivery Room Air Room Air Room Air Intake and Output 12/29/21 12/29/21 12/30/21 15:00 23:00 07:00 Intake Total 420 ml 180 ml Balance 420 ml 180 ml Justifications for Admission Other Justification JANAE SAMAYOA MD December 30, 2021 09:22
--- NOTE | 2021-12-30 09:25 | SNU/HH DC ---
DISCHARGE WITH HOME HEALTH DISCHARGE INFORMATION: Final Diagnosis: Problems Medical Problems: (1) Dizziness Status: Acute (2) DM (diabetes mellitus) Status: Acute (3) Hypoglycemia Status: Acute Condition on Discharge: Stable HOME HEALTH: Face to Face: I certify this patient is under my care and that I, or a nurse practitioner or physician's assistant to the president working with me, had a face to face encounter that meets the physician face to face encounter requirements with this patient on 12/30/21. RN For Eval/Treatment: Yes Physical Therapy For: Evalulation/Treatment Occupational Therapy For: Evaluation/Treatment Pt Meets Homebound Status: Other: (Recurrent hypoglycemia, compliance with medications) POST DISCHARGE ORDERS: Activity Instructions for Disc: Activity as tolerated Weight Bearing Status after Di: As tolerated DIET AFTER DISCHARGE: Cardiac (ADA) CHECKS AFTER DISCHARGE: Checks after discharge: Check blood press - daily, Check blood sugar, ac/hs FOLLOW-UP: PCP to follow Home Health: Yes Follow up with: Dr.Pratip Zimmer in 2 days on 01/01/22 at 10.45 AM TREATMENT/EQUIPMENT ORDERS: Adaptive Equipment Issued: None Discharge Respiratory Equipmen: Oxygen, Nebulizer CERTIFICATION STATEMENT: Certification Statement: Certification Statement: Based on the above finding, I certify that this patient is confined to the home and needs intermittent jail care, physical therapy and/or speech therapy, or continues to need occupational therapy.~ This patient is under my care, and I have initiated the establishment of the plan of care.~ This patient will be followed by myself or a community physician who will periodically review the plan of care. Home Meds Active Scripts Insulin Lispro (Humalog Kwikpen) 200 Unit/1 Ml Insuln.pen, 4 UNIT SQ TIDBFRMEAL PRN PRN for three times, #1 EACH Take 4 units for blood sugar more than 200, 3 times a day before meals Prov:DONTE ZIMMER MD 12/30/21 Gabapentin (GABAPENTIN) 300 Mg Capsule, 300 MG PO BID for neuropathy for 30 Days, #60 CAP Prov:DONTE ZIMMER MD 12/30/21 Albuterol Sulfate (Proair Hfa) 8.5 Gm Hfa.aer.ad, 2.5 MG NEB PRN Q6HRS PRN for SHORTNESS OF BREATH for 30 Days, #1 INHALER 1 Refill Prov:DONTE ZIMMER MD 08/05/19 Metoprolol Tartrate (METOPROLOL TARTRATE) 25 Mg Tablet, 12.5 MG PO BID for CAD for 30 Days, #30 TAB 3 Refills Prov:DONTE ZIMMER MD 08/05/19 Magnesium Oxide (MAGNESIUM OXIDE) 400 Mg Tablet, 400 MG PO TID for hypomagnesemia for 30 Days, #90 TAB 3 Refills Prov:DONTE ZIMMER MD 08/05/19 Atorvastatin Calcium (ATORVASTATIN CALCIUM) 40 Mg Tablet, 40 MG PO QHS, #30 Prov:RHODA BENTON MD 06/06/16 Reported Medications Fluticasone/Salmeterol (ADVAIR HFA 115-21 MCG INHALER) 12 Gm Hfa.aer.ad, 1 PUFF IH BID for asthma 07/01/19 Losartan Potassium (Losartan Potassium) 25 Mg Tablet, 12.5 MG PO DAILY for hypertension 07/01/19 Clopidogrel Bisulfate (CLOPIDOGREL) 75 Mg Tablet, 1 TAB PO DAILY for hx of stents, #90 TAB 1 Refill 06/28/18 Omeprazole (OMEPRAZOLE) 40 Mg Capsule.dr, 1 CAP PO DAILY, #30 CAP 3 Refills 05/11/17 Nitroglycerin (NITROGLYCERIN SubLingual) 0.4 Mg Tab.subl, 0.4 MG SL PRN Q5MIN PRN for CHEST PAIN, BOTTLE 06/24/16 Aspirin (ASPIRIN) 81 Mg Tab.chew, 1 TAB PO DAILY, #30 TAB 3 Refills 06/24/16 Discontinued Reported Medications Colchicine (Colchicine) 0.6 Mg Tablet, 0.6 MG PO PRN DAILY PRN for SEE COMMENTS 07/01/19 Bumetanide (BUMETANIDE) 2 Mg Tablet, 1 MG PO DAILY for heart failure 07/01/19 Tizanidine Hcl (TIZANIDINE HCL) 2 Mg Capsule, 2 MG PO DAILY for muscle spasms, CAP 06/24/16 Insulin Glargine,Hum.rec.anlog (LANTUS) 100 Unit/1 Ml Vial, 50 UNIT SQ HS for diabetes, VIAL 06/24/16 Nitroglycerin (NITRO-DUR 0.2mg/hr) 1 Each Patch.td24, 1 EACH TD HS for cp, PATCH 06/28/18 Dicyclomine Hcl (DICYCLOMINE HCL) 10 Mg Capsule, 1 CAP PO TID, #90 CAP Refills 06/03/16 Discontinued Scripts Methylprednisolone (MEDROL) 4 Mg Tab.ds.pk, 1 PKG PO UD for gout flare up, #1 PKG 0 Refills Prov:IMAN HERRERA APRN 08/15/21 DONTE ZIMMER MD December 30, 2021 09:25
--- NOTE | 2021-12-30 09:31 | PDOC3 ---
IM DISCHARGE SUMMARY Date of Admission Date of Admission Date of Admission: December 28, 2021 at 20:01 Date of Discharge Date of Discharge December 30, 2021 Primary Diagnosis Primary Diagnosis 1. Recurrent hypoglycemia. 2. Diabetes mellitus type 2 with hyperglycemia with recent A1c of 12.2. 3. Noncompliance. 4. Dizziness. 5. Coronary artery disease. 6. Hypotension. 7. Acute kidney injury. This time her creatinine is 1.8, previously it was 1.35. 8. Osteoarthritis. 9. Mixed hyperlipidemia. 10. Asthma. 11. Allergic rhinitis. 12. Sleep apnea, not on CPAP. 13. Moderate pulmonary hypertension. 14. Obesity. 15. Anemia. 16. Diverticulosis. 17. History of Helicobacter pylori and gastric biopsies. 18. Colonic polyps. 19. Diabetes mellitus type 2 with neuropathy. Consults Consults Artemio Boyd MD; Simone Olivier MD Labs Labs Laboratory Tests Test 12/29/21 11:20 12/29/21 16:41 12/29/21 20:27 12/30/21 07:01 Glucose (Fingerstick) 133 mg/dL (70-99) H 191 mg/dL (70-99) H 220 mg/dL (70-99) H 143 mg/dL (70-99) H Brief hospital course Brief hospital course This 86-year-old female who is known to have history of diabetes mellitus, coronary artery disease, congestive heart failure, GERD, hypertension, asthma and multiple other issues including noncompliance, started having dizziness. The patient's blood sugars yesterday morning were 96 and 137. She took Lantus 30 units the previous night and Humalog 8 units yesterday morning. The patient's blood sugars have been extremely high for the last few years. She does not take her medications regularly and does not take insulin regularly. She recently declined home health services, [facility]. She has an appointment to see an learning disabilities specialist at [facility] on 01/14. Recently, she started taking half the dose of her insulin and she started getting episodes of hypoglycemia. Yesterday, she was advised to go to the Emergency Room. In the Emergency Room, her blood sugar was noted to be 32 and this was treated with IV D50. Because of her dizziness, weakness and severe hypoglycemia, the patient was admitted for further evaluation and management. Her blood sugar initially went up to 166, but then again dropped to 34. It is not clear if she is also taking her glipizide. She has not been taking her Bumex and also has not been taking the Entresto given by her physician. Because of her multiple medical issues including dizziness and recurrent hypoglycemia, the patient is admitted for further evaluation and management. For more details regarding the past history, family history, social history, surgical history and other details, please refer to the H&P. Admit to the hospital. Monitor for falls. Start PT, OT. Consult Dr. Olivier for rehab evaluation and management. We will not give her any insulin, but continue to monitor blood sugars. I will hold a lot of her home medications, some of them she has not even been taking and some of them I am not sure if she is taking. For hypotension, we will hold some of her cardiac medications and consult Dr. Boyd for Cardiology evaluation and management. She may have taken glipizide, so it will not be safe to discharge her home today. Continue to monitor blood sugars. Patient was seen by the pigment pumper. She is clinically improving. Blood ocampo gars are in the 150-200 range. I will discontinue Lantus and just use Humalog 4 units for blood sugar more than 200, 3 times a day before meals. Hypotension is better. Restart metoprolol. Continue to hold diuretics and other medications. Today's labs are pending. Okay to discharge home with home health services. Patient is agreeable to allow home health services to come to her house. I have left a detailed message for her daughter Hallie on phone. Medications Medications reviewed and reconciled for discharge. Home Meds Active Scripts Insulin Lispro (Humalog Kwikpen) 200 Unit/1 Ml Insuln.pen, 4 UNIT SQ TIDBFRMEAL PRN PRN for three times, #1 EACH Take 4 units for blood sugar more than 200, 3 times a day before meals Prov:AZUL MONTEIRO MD 12/30/21 Gabapentin (GABAPENTIN) 300 Mg Capsule, 300 MG PO BID for neuropathy for 30 Days, #60 CAP Prov:AZUL MONTEIRO MD 12/30/21 Albuterol Sulfate (Proair Hfa) 8.5 Gm Hfa.aer.ad, 2.5 MG NEB PRN Q6HRS PRN for SHORTNESS OF BREATH for 30 Days, #1 INHALER 1 Refill Prov:AZUL MONTEIRO MD 08/05/19 Metoprolol Tartrate (METOPROLOL TARTRATE) 25 Mg Tablet, 12.5 MG PO BID for CAD for 30 Days, #30 TAB 3 Refills Prov:AZUL MONTEIRO MD 08/05/19 Magnesium Oxide (MAGNESIUM OXIDE) 400 Mg Tablet, 400 MG PO TID for hypomagnesemia for 30 Days, #90 TAB 3 Refills Prov:AZUL MONTEIRO MD 08/05/19 Atorvastatin Calcium (ATORVASTATIN CALCIUM) 40 Mg Tablet, 40 MG PO QHS, #30 Prov:RHODA BENTON MD 06/06/16 Reported Medications Fluticasone/Salmeterol (ADVAIR HFA 115-21 MCG INHALER) 12 Gm Hfa.aer.ad, 1 PUFF IH BID for asthma 07/01/19 Losartan Potassium (Losartan Potassium) 25 Mg Tablet, 12.5 MG PO DAILY for hypertension 07/01/19 Clopidogrel Bisulfate (CLOPIDOGREL) 75 Mg Tablet, 1 TAB PO DAILY for hx of stents, #90 TAB 1 Refill 06/28/18 Omeprazole (OMEPRAZOLE) 40 Mg Capsule.dr, 1 CAP PO DAILY, #30 CAP 3 Refills 05/11/17 Nitroglycerin (NITROGLYCERIN SubLingual) 0.4 Mg Tab.subl, 0.4 MG SL PRN Q5MIN PRN for CHEST PAIN, BOTTLE 06/24/16 Aspirin (ASPIRIN) 81 Mg Tab.chew, 1 TAB PO DAILY, #30 TAB 3 Refills 06/24/16 Discontinued Reported Medications Colchicine (Colchicine) 0.6 Mg Tablet, 0.6 MG PO PRN DAILY PRN for SEE COMMENTS 07/01/19 Bumetanide (BUMETANIDE) 2 Mg Tablet, 1 MG PO DAILY for heart failure 07/01/19 Tizanidine Hcl (TIZANIDINE HCL) 2 Mg Capsule, 2 MG PO DAILY for muscle spasms, CAP 06/24/16 Insulin Glargine,Hum.rec.anlog (LANTUS) 100 Unit/1 Ml Vial, 50 UNIT SQ HS for diabetes, VIAL 06/24/16 Nitroglycerin (NITRO-DUR 0.2mg/hr) 1 Each Patch.td24, 1 EACH TD HS for cp, PATCH 06/28/18 Dicyclomine Hcl (DICYCLOMINE HCL) 10 Mg Capsule, 1 CAP PO TID, #90 CAP 11 Refills 06/03/16 Discontinued Scripts Methylprednisolone (MEDROL) 4 Mg Tab.ds.pk, 1 PKG PO UD for gout flare up, #1 PKG 0 Refills Prov:IMAN HERRERA CONTRACT AGENT 08/15/21 Allergy Allergies Coded Allergies Type Severity Reaction Last Updated Verified venlafaxine Allergy Intermediate Hives 12/28/21 Yes metformin Adverse Reaction Intermediate WEAKNESS 12/28/21 Yes tramadol Adverse Reaction Intermediate WEIRD FEELING 08/15/21 Yes Follow up See Dr. Azul Monteiro in 2 days on Tuesday at 10:45 AM DISPOSITION: Home health services Comments Discharge Management - 35 minutes. For other details please refer to discharge instructions Justicifation of Admission Dx: Justifications for Admission: Justification of Admission Dx: Comment: (Hypoglycemia with dizziness and hypotension.) AZUL MONTEIRO MD December 30, 2021 09:31
--- NOTE | 2021-12-30 10:08 | NUR ---
SS following up with discharge planning. SS reviewed pt chart and discussed with pt RN. Pt is currently on room air. PT/OT recommended home with home healthcare. Discharge orders received for home with home healthcare. SS met with pt and discussed discharge planning and home healthcare. Pt agreeable to home healthcare with no preference of company. Discharge orders and referral sent to [facility], ; fax [phone]. Pt's RN notified.
[2021-12-30 10:55] LABS: BASO % 0 % (0-3); EOS # 0.3 x10^3/uL (0.0-0.7); EOS % 6 % (0-3); HEMATOCRIT 37.3 % (36.0-47.0); LYMPH % 21 % (24-48); MEAN CORPUSCULAR HEMOGLOBIN 31 pg (25-35); MEAN CORPUSCULAR HGB CONC 32 g/dL (31-37); MEAN CORPUSCULAR VOLUME 96 fL (79-100); MONO # 0.6 x10^3/uL (0.0-1.1); MONO % 13 % (0-9); NEUT # 2.8 x10^3/uL (1.8-7.7); NEUT % 60 % (31-73); PLATELET COUNT 194 x10^3/uL (140-400); RED BLOOD COUNT 3.89 x10^6/uL (3.50-5.40); RED CELL DISTRIBUTION WIDTH 14.5 % (11.5-14.5); WHITE BLOOD COUNT 4.8 x10^3/uL (4.0-11.0)
[2021-12-30 11:06] LABS: CALCIUM 9.3 mg/dL (8.5-10.1); CREATININE 1.6 mg/dL (0.6-1.0); POTASSIUM 4.5 mmol/L (3.5-5.1)
--- NOTE | 2021-12-30 12:28 | NUR ---
Discharge Note: NISHA MONTERROSO Discharge instructions and discharge home medications reviewed with Patient and a copy given. All questions have been answered and understanding verbalized. The following instructions and handouts were given: f/u with Dr. Monteiro on 01/01 @ 1040. Please bring all medications you are taking to this appointment. Discontinued lines and drains: Peripheral IV intact. Patient discharged to Home w/services with Family Member via Wheelchair.
--- NOTE | 2021-12-31 07:52 | EKG ---
[facility] [address] [place] [address] Test Date: 2021-12-28 Test Time: 18:21:49 Pat Name: NISHA MONTERROSO Department: Room: [facility] Gender: F [employer] Supervisor: : [id number] Requested By: INDIA SMITH Order Number: [id number] Reading MD: Per Olson MD Measurements Intervals [place] Rate: 63 P: -144 DE: 124 QRS: -27 QRSD: 110 T: 109 QT: 434 QTc: 447 Interpretive Statements ATRIAL PACED LAFB NON-SPECIFIC ST/T CHANGES Electronically Signed On 01-05-2022 11:36:13 CDT by Per Olson MD
== END 2021-12-30 12:28 | disposition home health service (06) | DRG 638 ==
LOC: ER 17:07 → 5 NORTH 20:01
PROVIDERS: ADMIT Internal Medicine; ATTEND Internal Medicine
DX: E11.649 Type 2 diabetes mellitus with hypoglycemia without coma (principal); C85.90 Non-Hodgkin lymphoma, unspecified, unspecified site; I13.0 Hypertensive heart and chronic kidney disease with heart failure and stage 1 through stage 4 chronic kidney disease, or unspecified chronic kidney disease; I50.42 Chronic combined systolic (congestive) and diastolic (congestive) heart failure; N17.9 Acute kidney failure, unspecified; Z91.14 Patient's other noncompliance with medication regimen; I95.9 Hypotension, unspecified; E11.65 Type 2 diabetes mellitus with hyperglycemia; C50.919 Malignant neoplasm of unspecified site of unspecified female breast; D64.9 Anemia, unspecified; E03.9 Hypothyroidism, unspecified; E78.2 Mixed hyperlipidemia; E11.22 Type 2 diabetes mellitus with diabetic chronic kidney disease; E11.40 Type 2 diabetes mellitus with diabetic neuropathy, unspecified; E66.9 Obesity, unspecified; G47.30 Sleep apnea, unspecified; G89.29 Other chronic pain; I25.10 Atherosclerotic heart disease of native coronary artery without angina pectoris; I25.2 Old myocardial infarction; I25.82 Chronic total occlusion of coronary artery; I27.20 Pulmonary hypertension, unspecified; I48.0 Paroxysmal atrial fibrillation; J44.9 Chronic obstructive pulmonary disease, unspecified; K57.90 Diverticulosis of intestine, part unspecified, without perforation or abscess without bleeding; K63.5 Polyp of colon; M19.90 Unspecified osteoarthritis, unspecified site; M51.36 Other intervertebral disc degeneration, lumbar region; N18.2 Chronic kidney disease, stage 2 (mild); Z79.4 Long term (current) use of insulin; Z80.0 Family history of malignant neoplasm of digestive organs; Z83.3 Family history of diabetes mellitus; Z86.19 Personal history of other infectious and parasitic diseases; Z86.711 Personal history of pulmonary embolism; Z90.710 Acquired absence of both cervix and uterus; Z91.19 Patient's noncompliance with other medical treatment and regimen; Z95.5 Presence of coronary angioplasty implant and graft; Z95.810 Presence of automatic (implantable) cardiac defibrillator; F41.9 Anxiety disorder, unspecified; K21.9 Gastro-esophageal reflux disease without esophagitis; M10.9 Gout, unspecified; Z88.8 Allergy status to other drugs, medicaments and biological substances
CPT/HCPCS: 36415; 71045; 80048; 80053; 81001; 82962; 83880; 84484; 85025; 93005; 94760; 96374; 99285-25; G0378